=== PATIENT | male | born 1960 | race Caucasian/White ===

== ENCOUNTER → 2023-09-24 16:08 | Outpatient (REF) | payer BC, SELFPAY | LOC: RAD 16:08 | PROVIDERS: ATTENDING PHYSICIAN Physician Assistant | DX: S05.50XA Penetrating wound with foreign body of unspecified eyeball, initial encounter (principal) | CPT/HCPCS: 70030 ==

== ENCOUNTER → 2023-10-14 10:44 | Outpatient (REF) | payer BC, SELFPAY | LOC: HWRAD 10:44 | PROVIDERS: ATTENDING PHYSICIAN Nurse Practitioner Family; FAMILY PHYSICIAN Family Medicine | DX: R91.8 Other nonspecific abnormal finding of lung field (principal) | CPT/HCPCS: 71270; Q9967 ==

== ENCOUNTER → 2023-10-16 14:52 | Outpatient (REF) | payer BC, SELFPAY | LOC: RCS 14:52 | PROVIDERS: ATTENDING PHYSICIAN Internal Medicine Critical Care Medicine; FAMILY PHYSICIAN Family Medicine | DX: R06.02 Shortness of breath (principal) | CPT/HCPCS: 93306 ==

== ENCOUNTER → 2023-10-22 06:46 | Day surgery (SDC) | payer BC, SELFPAY ==
[2023-10-22 10:20] VITALS: BMI 21.8
[2023-10-22 10:25] VITALS: BP 160/90
[2023-10-22 10:48] VITALS: BMI 21.8
== END ==
LOC: GI 06:46
PROVIDERS: ATTENDING PHYSICIAN Internal Medicine Critical Care Medicine
DX: R91.8 Other nonspecific abnormal finding of lung field (principal); Z53.8 Procedure and treatment not carried out for other reasons
CPT/HCPCS: 31654; 71045

== ENCOUNTER 2023-10-22 15:37 | Inpatient (IN) | payer BC, SELFPAY ==
[2023-10-22] VITALS (25 sets, daily range): BP systolic 104–163; BP diastolic 51–123; BMI 21.6; BMI 22.1
--- NOTE | 2023-10-22 12:00 | ED.GENMED ---
History of Present Illness
General
Chief Complaint: Cardiac Symptoms
Source: patient
Exam Limitations: none
Time Seen by Provider: 10/22/23 11:47
History of Present Illness
History of Present Illness:
See MDM
Past History
Past History
ED Past Medical History: HTN and Other (Emphysema )
ED Past Surgical History: None
Social History
Tobacco: Smoker
Alcohol: None
Phy Exam
Physical Exam
Physical Exam:
See MDM
Scores
[id number] Score for Afib Stroke Risk
Age in Years (65=0, 65-74=1, >/=75=2): 65-74
Sex (Female=+1): Male
Congestive Heart Failure History (Yes=+1): No
Hypertension History (Yes=+1): Yes
Stroke/TIA/Thromboembolism History (Yes=+2): No
Vascular Disease History (Yes=+1): No
Diabetes Mellitus (Yes=+1): No
Score: 2
Anticoagulation Recommendations: Recommend anticoagulation (as validated in nonvalvular fib)
Course
Orders/Labs/Results
Orders:
Orders
10/22/23 11:44
EKG [Electrocardiogram (*1)] Urgent
Reason for Study: Atrial Fibrillation
EKG- Treatment ONCE
10/22/23 11:49
Complete Blood Count/With Diff Urgent
Prothrombin Time Urgent
TSH Reflex To Free T4 Urgent
Comment: ADD ON
Troponin I Urgent
10/22/23 11:56
Add On- LAB Urgent
Tests Added?: magnesium, TSH reflex Free T4
10/22/23 11:59
Diltiazem 125 mg/125 ml Nss [Cardizem] 125 mg in 125 ml IV NOW
Initial dose in mg/hr, then titrate:: 5
Titrate to keep:: Heart rate 80-100 bpm
Titrate by mg/hr:: 5 mg/hr
Frequency of titrations (minutes):: 15
Maximum dose in mg/hr:: 15
Diltiazem HCl [Cardizem] 20 mg IV NOW STA
10/22/23 12:00
0.9% Sodium Chloride 1000 ml [Nss] 1,000 ml IV BOLUS
10/22/23 12:24
Comprehensive Metabolic Panel Urgent
Magnesium Urgent
10/22/23 12:25
CT Chest Pe Study Urgent
Comment:
Reason For Exam: SOB, tachycardic, lung mass
10/22/23 12:26
Add On- LAB Urgent
Tests Added?: Pro-BNP
10/22/23 12:33
NT-proBNP Urgent
Comment: ADD ON
10/22/23 13:15
Heparin 5,200 units IV NOW STA
Heparin 63245 Units/250 ml 25,000 units in 250 ml IV PER PROTOCOL
Weight to be used for heparin protocol in kilograms (kg):: 64.4
Protocol:: DVT/PE
PTT Goal Range to be used:: PTT 73 to 111 seconds
Order type:: Initial
INITIAL Infusion Dose (UNITS/KG/hr) & then follow protocol:: 18 units/kg/hr
Infusion Dose in UNITS/hr & then follow protocol (UNITS/hr):: 1,200
INFUSION RATE in mL/hr & then follow protocol (mL/hr):: 12
For DVT/PE algorithm, re-bolus for low PTT?: Yes
PTT less than or equal to 64 seconds:: Re-bolus 80 units/kg (max 10,000units). Increase by 300 units/hr
(+ 3mL/hr)
PTT 64.1 to 72.9 seconds:: Re-bolus 40 units/kg (max 5,000 units). Increase by 100 units/hr
(+ 1mL/hr)
PTT 73 to 111 seconds:: Target Range. No change in rate.
PTT 111.1 to 130.9 seconds:: Decrease rate by 100 units/hr (- 1 mL/hr)
PTT 131 to 199.9 seconds:: HOLD for 1 hr. Then decrease by 200 units/hr (- 2mL/hr)
PTT greater than or equal to 200 seconds:: HOLD for 2 hrs & Notify Provider. Then decrease by 300 units/hr
(- 3mL/hr)
Lab follow-up:: Each change, PTT q6h until 2 consecutive are therapeutic. Then
PTT daily.
10/22/23 13:[address] Non Medication Order As Directed
Physician Order: PTT 6 hours after initial start of Heparin infusion
10/22/23 13:24
Electrocardiogram (*1) Urgent
Reason for Study: Tachycardia
EKG- Treatment ONCE
10/22/23 13:[address] See Protocol PO ONCE PRN PRN
10/22/23 13:30
Heparin 5,100 units IV Q6HPRN PRN
10/22/23 13:31
Heparin 2,600 units IV Q6HPRN PRN
10/22/23 13:43
Add On- LAB Urgent
Tests Added?: ptt
10/22/23 19:40
PTT Urgent
Abnormal Lab Results
10/22/23 10/22/23
11:49 12:24
WBC 22.3 H 10^3/uL
(4.8-10.8)
RBC 4.61 L 10^6/uL
(4.70-6.10)
Abs Immat Gran (auto) 0.1 H 10^3/uL
(0-0.05)
Absolute Neuts (auto) 19.3 H 10^3/uL
(1.4-6.5)
Absolute Lymphs (auto) 0.9 L 10^3/uL
(1.2-3.4)
Absolute Monos (auto) 1.9 H 10^3/uL
(0.1-0.6)
Immature Gran % 0.6 H %
(0-0.5)
Neutrophils % 86.3 H %
(42.2-75.2)
Lymphocytes % 4.2 L %
(20.5-51.1)
PT 14.7 H Sec
(11.4-14.6)
Glucose 135 H mg/dl
(70-99)
Magnesium 1.5 L mg/dl
(1.6-2.3)
Troponin I 0.065 H* ng/ml
Total Protein 5.9 L g/dl
(6.3-8.2)
Albumin 3.2 L g/dl
(3.5-5.0)
10/22/23 11:49
10/22/23 12:24
Vital Signs
Initial and Last Documented VS:
Initial Vital Signs
BP
138/65
10/22/23 11:43
Last Documented Vital Signs
Temp Pulse Resp BP Pulse Ox
99.1 F 124 21 104/58 96
10/22/23 11:50 10/22/23 13:00 10/22/23 13:00 10/22/23 13:00 10/22/23 13:00
MDM/Problems Addressed
Differential Diagnosis Includes:
HPI and MDM Narrative:
63-year-old male presenting with shortness of breath and dizziness. Patient was being evaluated for left shoulder pain by orthopedics. An x-ray showed concern for a lung mass. He went to same-day surgery to obtain bronchoscopy today. However,
pain onset A-fib. On arrival, patient is tachycardic. EKG is concerning for sinus tachycardia concern for underlying 2-1 A flutter
Physical exam
General: Frail, thin
HEENT: protecting airway. Dry mucous membranes
Neck: appears supple
CV: No evidence of cyanosis. Tachycardic and regular
Resp: No accessory muscle use. Prolonged expiratory phase
Abd: Non-distended
Extremities: No deformities
Neuro: alert
Psych: Normal affect
Skin: Intact
Problems Addressed including Acute and Chronic Conditions affecting care:
1. New onset A-fib
Acuity: acute
Prognosis: unstable
Details: EKG shows sinus tachycardia but there is concern for underlying 2-[address] on Cardizem.
2. Shortness of breath
Acuity: acute
Prognosis: stable
Details: Likely in the setting of his undiagnosed lung cancer seen on chest x-ray. Patient is pending bronchoscopy
Updates
Given the elevated troponin and persistent tachycardia, will obtain CT to rule out PE. Will start heparin with concern for new onset A-fib and possible PE
Differential Diagnosis (but not limited to): Pulmonary embolism, pneumonia, A-fib, a flutter
Testing considered: CT PE
Drug therapy (if applicable): OTC meds, please see d/c instruction regarding Rx drugs
Amount and/or Complexity of Data Reviewed
Clinical info obtained from: Patient
External data reviewed: Chest x-ray done as an outpatient today shows mass in left upper lobe
Labs I independently reviewed (but not limited to): Leukocytosis, elevated troponin
Radiology: N/A
Pulse Ox: not hypoxic
EKG independently reviewed: Sinus tachycardia, right axis, no STEMI
Firer Locomotive: tachycardia
Critical Care: The high probability of a clinically significant, sudden or life threatening deterioration of the cardiovascular system(s) required my full and direct attention, intervention and personal management. The aggregate critical care time
was 33 minutes. This time is in addition to time spent performing reported procedures but includes the following:
[x] Data Review and interpretation
[x] Patient assessment and monitoring of vital signs
[x] Documentation
[x] Medication orders and management
Risk of Complication:
Social Determinants of health: Good social support
Discussed with other providers: Hospitalist
Escalation of Care includes Admit/Obs: Given the persistent A-fib with RVR, will admit
Occasional wrong word or 'sound a like' substitutions may have occurred due to the inherent limitations of voice recognition software. Read the chart carefully and recognize, using context, where substitutions have occurred.
*Critical Care Note
Total Time (30-74mins, 75-104mins- exclusive of procedures): 33 min
ED Attending Note
-
Portions of this chart may have been created with voice recognition software.� Occasional wrong word or��sound alike� substitutions may have occurred due to the inherent limitations of voice recognition software.
Discharge Plan
Departure
Patient Disposition: Admit
Date of Disposition: 10/22/23
Time of Disposition: 13:52
Admit to: Telemetry
Presentation/result/management discussed w/ accepting MD/DO: Hospitalist
Discharge Problem:
Lung mass, New onset a-fib
Prescriptions:
No Action
atorvastatin 10 mg Tablet
10 mg PO DAILY
meloxicam 15 mg Tablet
15 mg PO DAILY
tramadol 50 mg Tablet
50 mg PO TIDPRN PRN (Reason: moderate pain)
acetaminophen [Tylenol Extra Strength] 500 mg Tablet
1,000 mg PO Q6HPRN PRN (Reason: mild pain)
cholecalciferol (vitamin D3) [Vitamin D3] 125 mcg (5,000 unit) Tablet
125 mcg PO DAILY
Trelegy Ellipta 200-62.5-25 mcg Blister With Device
1 inh INHALATION R DAILY
Referrals:
Ramona Jacome CRNP [Family Provider] -
Interventions
Interventions:
*Risk Screen - Suicide Last Done: 10/22/23 11:48
*General Assessment Last Done: 10/22/23 11:48
*Neglect/Abuse Screening Last Done: 10/22/23 11:48
ED- Pulmonary Assessment Last Done: 10/22/23 11:50
ED- Cardiac Assessment Last Done: 10/22/23 11:50
Discharge Date and Time
Print Language: QATARI
[2023-10-22 12:07] LABS: % Basophils 0.4 % (0-2); % Eosinophils 0.2 % (0-6); % Immature Granulocytes 0.6 % (0-0.5); % Lymphocytes 4.2 % (20.5-51.1); % Monocytes 8.3 % (1.7-9.3); % Neutrophils 86.3 % (42.2-75.2); Absolute Basophils 0.1 10^3/uL (0-0.2); Absolute Immature Granulocytes 0.1 10^3/uL (0-0.05); Absolute Lymphocytes 0.9 10^3/uL (1.2-3.4); Absolute Monocytes 1.9 10^3/uL (0.1-0.6); Absolute Neutrophils 19.3 10^3/uL (1.4-6.5); Hematocrit 39.3 % (39.0-52.0); Mean Corp Hgb Conc. 35.6 g/dL (33.0-37.0); Mean Corpuscular Hgb 30.4 pg (27.0-31.0); Mean Corpuscular Volume 85.2 fL (80.0-94.0); Mean Platelet Volume 9.5 fL (7.4-10.4); Nucleated Red Blood Cells % 0 % (-); Platelet Count 318 10^3/uL (130-400); Red Blood Cell Count 4.61 10^6/uL (4.70-6.10); Red Cell Dist. Width 14.5 % (11.5-14.5); White Blood Cell Count 22.3 10^3/uL (4.8-10.8)
[2023-10-22 12:10] LABS: INR 1.15; PT 14.7 Sec (11.4-14.6)
[2023-10-22] MEDS: NSS 1000 IV (12:19)
[2023-10-22] MEDS: CARDIZEM 20 MG IV (12:20)
[2023-10-22] MEDS: CARDIZEM 125 IV (12:23)
[2023-10-22 12:24] LABS: Troponin I 0.065 ng/ml
[2023-10-22 13:03] LABS: ALT (SGPT) 21 U/L (0-50); AST (SGOT) 25 U/L (17-59); Albumin 3.2 g/dl (3.5-5.0); Alkaline Phosphatase 115 U/L (38-126); Blood Urea Nitrogen 14 mg/dl (9-20); Calcium 9.6 mg/dl (8.4-10.2); Carbon Dioxide 28 mmol/L (22-30); Chloride 99 mmol/L (98-107); Estimated Creatinine Clearance 96 ml/min; Glucose 135 mg/dl (70-99); Potassium 4.9 mmol/L (3.5-5.1); Sodium 135 mmol/L (135-145); Total Bilirubin 0.8 mg/dl (0.2-1.3); Total Protein 5.9 g/dl (6.3-8.2); eGFR > 60.00
[2023-10-22] MEDS: HEPARIN 5200 UNITS IV (13:37)
[2023-10-22] MEDS: HEPARIN 25000 UNITS/250 ML IV (13:40)
[2023-10-22 14:06] LABS: NT-proBNP 624 pg/ml
[2023-10-22 14:15] LABS: APTT 35.4 Sec (23.4-35.0)
--- NOTE | 2023-10-22 15:19 | HPS.HSE ---
Addendum entered and electronically signed by Kb Arnett MD 10/22/23 18:09:
I personally performed a history and physical exam of the patient and discussed management with the resident. I reviewed the resident's note and agree with the documented findings and plan of care HPI/CC.
63-year-old male with past medical history of tobacco abuse, recent diagnosis of left upper lobe malignancy, hyperlipidemia was sent to ER from outpatient bronchoscopy when patient was noted to be hypoxic and recorded. Patient has been diagnosed
with new malignancy 1 week before after presenting in ER for having shoulder pain and dyspnea for 4 months. Patient was found to having left upper lobe mass on CT scan. Patient was discharged home and was seen by pulmonology in office. Patient
was brought back for an elective bronchoscopy where patient was noted to be hypoxic with SpO2 dropping to 80s. Related patient also was noted to be significantly tachycardic with heart rate in 170s. Patient was sent to ER. In ER patient was found
to be having A-fib RVR. Patient denies of any previous history of A-fib does have on and off palpitation.
Patient also history with there is also complaints of some left-sided chest pain, which located on upper left sternal/rib area and feels like being in muscles.
Patient denies of having any orthopnea/PND/leg swelling/syncope. No abdominal or complaints.
HEENT: No pallor, cyanosis, or jaundice. Throat clear.
NECK: Supple. No JVD.
RESPIRATORY: decreased breath sound left upper lobe
CVS: S1, S2. irregularly irregular rhythm, tachycardic
ABDOMEN: Soft, non-tender. No distension. BS+/normal.
EXTREMITIES: No peripheral cyanosis or edema.
LEAD TECHNICIAN: AOx3. No focal deficits.
1. Afib with RVR
-New diagnosis
-Patient converted to normal sinus rhythm with Cardizem drip in ER
-Cardiology evaluated and patient switched to oral Cardizem
-TTE on 10/15 reviewed - normal EF, PASP 25-30mmhg
-[id number] of 1 only and concern of fall risk with history of alcohol use by cardiology.
-Currently on heparin drip
2. Post-obstructive pneumonia
-CT chest compared from previous CT chest and increased infiltrate on left upper lobe
-Have associated leukocytosis without fever
-No cough/sputum production. Sputum culture ordered nonetheless
-Cover with empiric Unasyn
3. Left lung mass
Exertional dyspnea
-Bronchoscopy aborted today due to vital instability
-discussed with pulmonology of consult and will try to replan post patient stabilized from medical perspective
-CT chest images reviewed and a left lung mass causing compression of pulmonary artery on left, high risk of true PE in future, with associated new diagnosis of A-fib would favor oral anticoagulation. Will discuss with cardiology and pulmonology.
4. Tobacco use
-Nicotine patch, active smoker
-Cessation advised
5. Hypomagnesemia
-replace 2g mg, recheck in morning
6. Alcohol use disorder
-daily alcohol use
-monitor with MSAS/Ativan protocol
DVT PPX - heparin drip
Full code
6.
Original Note:
Family Physician
-
Family Physician: DEXTER Cm
Chief Complaint
-
Shortness of breath
History of Present Illness
Patient is a 63-year-old male presenting to the ED with shortness of breath progressing over the last week and new onset A-fib with RVR seen at remote inpatient coder office earlier today. He reports that over the last 4 months he started having orthopnea
at night, requiring additional pillows to prop himself up. Over the last week his shortness of breath has progressed, especially with activity. He notes some dizziness with ambulation and standing from seated position. If at rest he notes no
shortness of breath or dizziness. CT scan completed last month showed lung mass which was being worked up by pulmonology and he was set to get a bronchoscopy today. Upon evaluation of EKG prior to surgical procedure, A-fib was seen and patient was
sent to the ER. He notes no headaches, nausea, vomiting, diarrhea, chest pain, numbness or tingling, abdominal pain. He requires no home oxygen. Patient reports having 20 pounds of weight loss in the last year. He eats 1 small Japanese in the
morning and then nothing until dinner.
Medical History
Past Medical History
Past Medical History: Reports Other (Emphysema)
Additional Past Medical History:
Emphysema
Past Surgical History: Reports Other (Wrist surgery)
Additional Past Surgical History:
Wrist surgery
Social History
Tobacco: Smoker (45 years, 1 pack a day)
Alcohol: Daily (6 beers and 2 well drinks daily)
Drug: None
Personal: Partner
Living: Other (Lives with partner)
Employment: Employed
Family History
Family History: Cancer
Allergies / Home Medications
Allergies reflects when Allergies were last updated in [employer].
Home Medications with original date entered in [employer]
Allergy/Medication List:
No known drug allergies
Review of Systems
-
History Source: Patient
A 12 point ROS was completed and negative except as noted: Yes
Constitutional: Reports Weight Loss (20 pounds in 1 year)
EENT: Reports No Symptoms
Respiratory: Reports Cough and Trouble Breathing
Cardiac: Reports No Symptoms
Abdomen/GI: Reports No Symptoms
: Reports No Symptoms
Musculoskeletal: Reports No Symptoms
Skin: Reports No Symptoms
Neurological: Reports Dizzy
Psych: Reports No Symptoms
Physical Exam
Vital Signs
Vital Signs
Temp Pulse Resp BP Pulse Ox
99.1 F 91 17 114/63 96
10/22/23 11:50 10/22/23 13:45 10/22/23 13:45 10/22/23 13:45 10/22/23 13:45
Physical Exam
General: No Apparent Distress, Comfortable, Conversant and Cachectic
HEENT: NormoCephalic and Anicteric
Respiratory: Rhonchi (Bilateral across all lobes) and Decreased Breath Sounds (Left upper lobe)
Cardiac: S1/S2, Regular Rhythm and JVD
GI: Soft, Non Tender and Non Distended
Musculoskeletal: No Clubbing, No Cyanosis and No Edema
Skin: Warm and Dry
Neuro: AO x 3, No Motor Deficits, Cranial Nerves Intact and No Sensory Deficits
Psych: Calm
Laboratory Results
-
10/22/23 11:49
10/22/23 12:24
Laboratory Results
PT 14.7 Sec (11.4-14.6) H 10/22/23 11:49
INR 1.15 10/22/23 11:49
APTT Cancelled 10/22/23 13:17
Total Bilirubin 0.8 mg/dl (0.2-1.3) 10/22/23 12:24
AST 25 U/L (17-59) 10/22/23 12:24
ALT 21 U/L (0-50) 10/22/23 12:24
Alkaline Phosphatase 115 U/L (38-126) 10/22/23 12:24
Troponin I 0.065 ng/ml H* 10/22/23 11:49
Data Reviewed
-
Diagnostic Radiology: Report Reviewed by me and Discussed with Physician
CT Scan: Report Reviewed by me and Discussed with Physician
Lab Data: Labs Reviewed by me and Discussed with Physician
Old Records: Reviewed
Impression/Plan
-
IMPRESSION: 63-year-old male with history of emphysema, new onset A-fib with RVR and shortness of breath.
PLAN:
Acute onset shortness of
� Secondary to acute exacerbation of COPD versus lung mass versus PE versus NJ versus new onset A-fib
� EKG evidenced A-fib, now normal sinus rhythm
�Cardizem bolus and drip started. Rate of 5 mg an hour.
� CT PE ordered. No evidence of pleural embolism
- Heparin drip started.
-BNP 624. Heart failure ruled out
� Troponin elevated 0.065. No ST elevation or chest pain.
New onset A-fib
� In and out of A-fib with RVR
� Cardizem drip on, currently at 5 mg an hour
� Switch to oral diltiazem tomorrow pending cardiology recommendations
� Cardiology consulted. Input appreciated
� Joseph Vasc score of 1. Mild to moderate risk.
� Continue anticoagulation, currently on heparin
Lung mass
� Progressive dyspnea for last 4 months
� Monitor for hypoxia
� Consult pulmonology if indicated.
DVT prophylaxis�heparin
Full code
[2023-10-22 15:20] LABS: Magnesium 1.5 mg/dl (1.6-2.3)
[2023-10-22 15:47] LABS: Cortisol, Random 19.1 ug/dl
[2023-10-22 16:18] LABS: Free T3 4.41 pg/ml (2.77-5.27)
[2023-10-22 16:32] LABS: TSH Reflex To Free T4 1.16 uIU/ml (0.47-4.68)
--- NOTE | 2023-10-22 17:24 | CON.CAR ---
Addendum entered and electronically signed by Latoya Sorensen MD 10/22/23 17:51:
I saw and examined the patient.
The COOK BOX FILLER's note was reviewed and I agree with the note.
Comment: 63 yo male with COPD,ETOH abuse, tobacco use, found to GREG mass p/w new AF when presented for biopsy. He has no sense of arrhythmia, now in NSR. He reports his bp is 130-140's at MD office all the time, never started on meds yet. He had a
normal echo last week. He has rrr, no m/r/g, diffuse bronchial breathsounds. PAF: c2v is a 2 for HTN and age. For now continue hep gtt as will need lung bx, will transition dilt gtt to po dilt given COPD> I explained cannot drink while on DOAC,
he states he understands. He has what appears to be post obstructive pna, would recommend therapy. He should be watched for ETOH withdrawal. HTN will be treated to goal <130/80. GREG mass per pulmonary. Smoking cessation needed.
Original Note:
Consultation
Consultation Request
Date/Time Consultation Requested: 10/22/23 1641
Date/Time Consultation Performed: 10/22/23 1700
Requesting Provider: Dr. Booker
Performing Provider: Maria M RENTERIA for Dr. Sorensen
Reason for Consultation: AFIB with RVR
Medical History
-
Chief Complaint: arrhythmia
History of Present Illness:
63 y/o male with COPD, tobacco use, and daily ETOH who had left shoulder pain for the past two months, which led to an Xray, which showed lung mass who was getting a lung biopsy today. There, he was seen to be in AFIB with RVR and was sent to the
ER. He was placed on heparin and diltiazem drips. He denies any palpitations. He is in SR at the time of my assessment. He is noted to have leukocytosis and evidence for PNA on imaging.
Past Medical History
Past Medical History: COPD
Social History
Tobacco: Smoker (1 PPD, has been cutting back)
Alcohol: Daily (4-6 beers)
Family History
Family History: Reviewed & Not Pertinent
Allergies / Home Medications
Allergy/AdvReac Type Severity Reaction Status Date / Time
No Known Allergies Allergy Verified 10/22/23 11:45
�Medication �Instructions �Recorded �Confirmed �Type
acetaminophen 500 mg tablet 1,000 mg PO Q6HPRN PRN mild pain 10/22/23 10/22/23 History
(Tylenol Extra Strength)
atorvastatin 10 mg tablet 10 mg PO DAILY 10/22/23 10/22/23 History
cholecalciferol (vitamin D3) 125 125 mcg PO DAILY 10/22/23 10/22/23 History
mcg (5,000 unit) tablet (Vitamin
D3)
fluticasone fur. 200 mcg-umeclid 1 inh inhalation R DAILY 10/22/23 10/22/23 History
62.5 mcg-vilant 25 mcg
inhalat.powder (Trelegy Ellipta)
meloxicam 15 mg tablet 15 mg PO DAILY 10/22/23 10/22/23 History
tramadol 50 mg tablet 50 mg PO TIDPRN PRN moderate pain 10/22/23 10/22/23 History
Review of Systems
-
History Source: Patient
Respiratory: Trouble Breathing (chronic)
Musculoskeletal: Other (left shoulder pain)
Physical Exam
Vital Signs
Temp Pulse Resp BP Pulse Ox
98.9 F 80 18 163/62 99
10/22/23 17:16 10/22/23 17:16 10/22/23 17:16 10/22/23 17:16 10/22/23 17:16
Lab Results
10/22/23 11:49
10/22/23 12:24
Troponin I 0.065 ng/ml H* 10/22/23 11:49
Tkr-Q-Vuvcmboyggr Pept 624 pg/ml 10/22/23 12:33
Physical Exam
General: No Apparent Distress
HEENT: Normocephalic and Anicteric
Respiratory: Clear and Non Labored Respirations
Cardiac: Regular Rhythm
Musculoskeletal: No Edema
Skin: Warm and Dry
Neuro: AO x 3
Psych: Calm
Impression / Plan
-
AFIB with RVR, paroxysmal:
-new diagnosis
-now back in SR
-can transition to PO diltiazem
-[id number] score 1 for age, possibly 2 if HTN diagnosed- follow BP's. Continue heparin drip for now, which requires intensive monitoring
-TSH WNL.
-Discussed eliminating or at least limiting ETOH consumption.
-recent echo as below
Leukocytosis, poss PNA (imaging):
-management per primary team. Dr. Sorensen discussed with IM team.
Lung CA:
-IM to discuss plan with pulmonary
COPD:
-on inhaler therapy
Abnormal troponin:
-acute non-ischemic myocardial injury in setting of AFIB with RVR, likely PNA
-trend to peak
Smoking:
-he is working on cessation
Data Reviewed
-
EKG: Tracing Personally Visualized and interpreted (NSR)
CT Scan: Report Reviewed by me (large mass within the left hilum and medial left upper lobe compatible with a primary lung cancer with associated invasion of the mediastinum and anterior chest wall, which encases and significantly narrows the left
main point artery and occludes the left upper lobe..) and Other (bronchus and narrows left lower lobe bronchus. Compared to the prior CT, there is new irregular airspace consolidation within the central aspect of the inferior left upper lobe
suspicious for post obstructive pneumonia.)
Medical Tests (Nuc Med, Echo etc): Report Reviewed by me (10/16/23: Left ventricular ejection fraction is 60-65%, by visual assessment. Normal regional wall motion. Normal right ventricular size and function. Trace tricuspid regurgitation.
Estimated pulmonary artery pressure of 25-30 mmHg.)
Labs: Labs Reviewed by me
[2023-10-22] MEDS: UNASYN IV (18:01)
[2023-10-22] MEDS: CARDIZEM CD 120 MG PO (18:01)
[2023-10-22] MEDS: MAGNESIUM SULFATE 50 IV (18:26)
[2023-10-22] MEDS: NICODERM TRANSDERMAL 21 MG TRANSDERM (18:31)
[2023-10-22] MEDS: SYMBICORT 160/4.5 MCG INHALER 2 PUFF INH (19:46)
[2023-10-22 19:57] LABS: APTT 37.8 Sec (23.4-35.0)
[2023-10-22 20:02] LABS: Alcohol None Detected
[2023-10-22] MEDS: HEPARIN 5100 UNITS IV (20:06)
[2023-10-22] MEDS: THIAMINE INJECTION 200 MG IV (20:06)
[2023-10-23] VITALS (8 sets, daily range): BP systolic 121–157; BP diastolic 56–86
[2023-10-23] MEDS: UNASYN IV ×4 (00:36→17:24)
--- NOTE | 2023-10-23 00:50 | PTCARENOTE ---
Upon going into pt's room to hang scheduled unasyn, I noticed that the pt's IV pumps were off. Heparin gtt had been infusing the last time I had gone in the room. The pumps were unplugged. The pt stated that he unplugged them to use the bathroom. I
asked him if he had heard the pump beeping, signaling low battery. He stated that 'all the beeping sounds the same' and that he 'can't tell if it's in the room or outside the room.' I plugged in both IV pumps, turned them on, and made sure they were
infusing. Provider notified. Next PTT to be drawn soon.
[2023-10-23 01:51] LABS: INR 1.15; PT 14.7 Sec (11.4-14.6)
[2023-10-23 01:52] LABS: APTT 51.6 Sec (23.4-35.0)
[2023-10-23 02:03] LABS: Troponin I 0.069 ng/ml
[2023-10-23] MEDS: HEPARIN 5100 UNITS IV ×2 (02:08→14:33)
--- NOTE | 2023-10-23 04:00 | PTCARENOTE ---
Pt went into rapid AFib 120s-130s at 03:48. House provider notified. Converted back to NSR at 03:56. BP 142/64. Pt asymptomatic. Provider placed order to check Mg level with AM labs. Will continue to monitor.
[2023-10-23] MEDS: CARDIZEM CD 120 MG PO ×2 (05:26→10:02)
[2023-10-23] MEDS: ATIVAN 1 MG PO (05:34)
--- NOTE | 2023-10-23 05:46 | PTCARENOTE ---
Pt went back into rapid AFib at 05:00, Hr 120s-140s. Again, asymptomatic. BP 157/86. House provider notified and told me to give 08:00 PO cardizem early. When giving the PO cardizem, pt stated that he was having hallucinations. MSAS assessment done,
MSAS= 6. PO ativan given, see MAR. Will continue to monitor.
[2023-10-23] MEDS: SYMBICORT 160/4.5 MCG INHALER 2 PUFF INH ×2 (07:40→19:16)
[2023-10-23] MEDS: SPIRIVA RESPIMAT 2.5 MCG 2 PUFF INH (07:40)
[2023-10-23] MEDS: HEPARIN 25000 UNITS/250 ML IV ×2 (07:53→20:31)
[2023-10-23 07:54] LABS: Hematocrit 34.5 % (39.0-52.0); Hemoglobin 12.3 g/dL (13.0-18.0); Mean Corp Hgb Conc. 35.7 g/dL (33.0-37.0); Mean Corpuscular Hgb 30.6 pg (27.0-31.0); Mean Corpuscular Volume 85.8 fL (80.0-94.0); Mean Platelet Volume 9.3 fL (7.4-10.4); Platelet Count 278 10^3/uL (130-400); Red Blood Cell Count 4.02 10^6/uL (4.70-6.10); Red Cell Dist. Width 14.4 % (11.5-14.5); White Blood Cell Count 18.4 10^3/uL (4.8-10.8)
[2023-10-23] MEDS: FOLVITE 1 MG PO (07:59)
[2023-10-23] MEDS: LIPITOR 10 MG PO (07:59)
[2023-10-23] MEDS: MOBIC 15 MG PO (08:00)
[2023-10-23] MEDS: NICODERM TRANSDERMAL 21 MG TRANSDERM (08:01)
[2023-10-23 08:02] LABS: APTT 74.5 Sec (23.4-35.0)
[2023-10-23] MEDS: THIAMINE INJECTION 200 MG IV ×2 (08:04→20:23)
[2023-10-23] MEDS: VITAMIN D3 (cholecalciferol) 125 MCG PO (08:05)
[2023-10-23 08:52] LABS: Blood Urea Nitrogen 12 mg/dl (9-20); Calcium 8.8 mg/dl (8.4-10.2); Carbon Dioxide 28 mmol/L (22-30); Chloride 99 mmol/L (98-107); Estimated Creatinine Clearance 114 ml/min; Glucose 119 mg/dl (70-99); Magnesium 1.8 mg/dl (1.6-2.3); Potassium 3.8 mmol/L (3.5-5.1); Sodium 133 mmol/L (135-145); eGFR > 60.00
--- NOTE | 2023-10-23 09:36 | W.PN.CD ---
Today's Communication / Plan
-
increase diltiazem to 240mg daily
continue heparin drip; eventual transition to eliquis pending plans for bronchoscopy/biopsy
trend tele
Impression / Plan
-
AFIB with RVR, paroxysmal:
-new diagnosis
-echo 10/16/23: Left ventricular ejection fraction is 60-65%, by visual assessment. Normal regional wall motion. Normal right ventricular size and function. Trace tricuspid regurgitation. Estimated pulmonary artery pressure of 25-30
mmHg
-in/out of A fib this AM
-increase diltiazem to 240mg daily
-[id number] score 1 for age, possibly 2 if HTN diagnosed- follow BP's. Continue heparin drip for now, which requires intensive monitoring of labs
-eventual transition to eliquis 5mg bid, but may undergo bronchoscopy with biopsy this admission
Elevated blood pressure
-trend with diltiazem titration
Leukocytosis, poss PNA:
-Abx per primary
Lung CA:
-may undergo bronchoscopy with biopsy this admission
COPD:
-on inhaler therapy
Abnormal troponin:
-acute non-ischemic myocardial injury in setting of AFIB with RVR, likely PNA
-trend to peak: 0.070
Smoking:
-he is working on cessation
Physical Exam
Vital Signs/Labs
Vital Signs
Temp Pulse Resp BP Pulse Ox
98.3 F 115 18 154/65 98
10/23/23 07:10 10/23/23 07:46 10/23/23 07:46 10/23/23 07:10 10/23/23 07:46
10/22/23 10/23/23 10/24/23
06:59 06:59 06:59
Actual Weight 65.794 kg
10/23/23 07:40
10/23/23 07:40
PT Cancelled 10/23/23 06:00
INR Cancelled 10/23/23 06:00
APTT 74.5 Sec (23.4-35.0) H 10/23/23 07:40
Magnesium 1.8 mg/dl (1.6-2.3) 10/23/23 07:40
10/22/23
12:33
Ryb-M-Wlexspppcex Pept 624
LAB Results
10/22/23 10/22/23 10/23/23
11:49 19:17 01:24
Troponin I 0.065 H* 0.070 H* 0.069 H*
Physical Exam
Constitutional: Comfortable
EENT: Moist mucous membranes
Cardiovascular: Pedal edema is absent, JVD pressure is normal, Systolic murmur absent and Rhythm/rate is irregular
Respiratory: Respiratory effort normal and Lungs clear to auscul.
GI: Soft and Distention absent
Neuro/Psych: AO x 3
Data Reviewed
-
Date of Service: October 23, 2023
EKG: Other (Tele: SR with paroxysmal A fib)
Labs: Labs Reviewed by me
[2023-10-23] MEDS: LOPRESSOR 5 MG IV (10:03)
--- NOTE | 2023-10-23 13:14 | W.PN.UPDATE ---
Update Note
Progress Note Update
I saw and evaluated the patient. I reviewed the resident�s note and agree with findings and plan as documented in the resident�s note.
No episode of palpitations/chest discomfort/dizziness overnight
No other acute issues reported.
1. Afib with RVR - resolved
-New diagnosis
-Patient converted to normal sinus rhythm with Cardizem drip in ER
-TTE on 10/15 reviewed - normal EF, PASP 25-30mmhg
-[id number]-NQUt of 1 only and concern of fall risk with history of alcohol use by cardiology.
-Patient Cardizem dose has been increased by cardiology today. Continue monitoring on telemetry.
-AC plan to be decided, will discuss with cardiology.
2. Post-obstructive pneumonia
-CT chest compared from previous CT chest and increased infiltrate on left upper lobe
-Have associated leukocytosis without fever
-No cough/sputum production. Sputum culture ordered nonetheless
-Cover with empiric Unasyn
3. Left lung mass
Exertional dyspnea
-Bronchoscopy aborted on day of ER visit due to vital instability
-CT chest images reviewed and a left lung mass causing compression of pulmonary artery on left, high risk of true PE in future, with associated new diagnosis of A-fib would favor oral anticoagulation. Will discuss with cardiology and pulmonology.
-Discussed with pulmonology and possibly planning to do bronchoscopy tomorrow in the morning.
4. Tobacco use
-Nicotine patch, active smoker
-Cessation advised
5. Hypomagnesemia
-replace 2g mg, recheck in morning
6. Alcohol use disorder
-daily alcohol use
-monitor with MSAS/Ativan protocol
DVT PPX - heparin drip
Full code
Care plan discussed with cardiology and pulmonology.
Total time spent 53 minutes
--- NOTE | 2023-10-23 13:24 | CON.PUL ---
Consultation
Consultation Request
Date/Time Consultation Requested: 10/22
Date/Time Consultation Performed: 10/22
Reason for Consultation: Bronchoscopy rescheduled
Medical History
-
History of Present Illness:
History obtained from the patient, reviewing both inpatient and outpatient records. Patient is a 63-year-old male, who was seen in the pulmonary office 10/15 for abnormal imaging. Patient states he had an incidental abnormality found on MRI of the
cervical spine after complaint of left shoulder pain. Patient also admitted to 20 pound weight loss, progressive shortness of breath. He has significant smoking history, 2 packs a day, has cut down to 1 pack, likely 80+ pack year. He was found to
be tachycardic as outpatient, but without symptoms. Echocardiogram within normal limits. Imaging confirmed left upper lobe mass with hilar and mediastinal invasion. Patient was scheduled for bronchoscopy and assessment of the mediastinum 87 was
found to be hypoxic, 80% on room air, heart rate in the 150s to 170s with irregular rhythm. Patient was subsequently transferred to ED, admitted for new onset atrial flutter/atrial fibrillation. He was empirically started on heparin therapy. He
is now stabilized, seen by cardiology on rate control therapy. We are asked to consider bronchoscopy 10/24/2023
Presently, patient denies shortness of breath, chest pain, cough. He appears more alert at this time compared to 24 hours ago. Brother at bedside
.
PMH: COPD, suspected lung cancer with left upper lobe mass, elevated troponin, tachycardia, hypertension, newly diagnosed atrial fibrillation
Past Medical History
Past Medical History: None (See above)
Past Surgical History: None (See above)
Social History
Tobacco: Smoker ([id number], ongoing)
Alcohol: Daily (4-5 beers a day)
Drug: None
Personal: Partner (Girlfriend)
Living: Alone
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
Family History
Family History: Other (Mother with colon cancer. 6 siblings. Negative history of lung cancer, lung disease)
Allergies / Home Medications
Allergies
Allergy/AdvReac Type Severity Reaction Status Date / Time
No Known Allergies Allergy Verified 10/22/23 11:45
Home Medications
�Medication �Instructions �Recorded �Confirmed �Last Taken �Type
acetaminophen 500 mg tablet 1,000 mg PO Q6HPRN PRN mild pain 10/22/23 10/22/23 Unknown History
(Tylenol Extra Strength)
atorvastatin 10 mg tablet 10 mg PO DAILY 10/22/23 10/22/23 10/21/23 11:00 History
cholecalciferol (vitamin D3) 125 125 mcg PO DAILY 10/22/23 10/22/23 10/21/23 History
mcg (5,000 unit) tablet (Vitamin
D3)
fluticasone fur. 200 mcg-umeclid 1 inh inhalation R DAILY 10/22/23 10/22/23 10/21/23 History
62.5 mcg-vilant 25 mcg
inhalat.powder (Trelegy Ellipta)
meloxicam 15 mg tablet 15 mg PO DAILY 10/22/23 10/22/23 10/21/23 11:00 History
tramadol 50 mg tablet 50 mg PO TIDPRN PRN moderate pain 10/22/23 10/22/23 10/21/23 11:00 History
Review of Systems
-
All other systems: Negative unless noted
Vitals / Labs / Diagnostic Testing
Vital Signs
Temp Pulse Resp BP Pulse Ox
97.8 F 88 16 130/60 96
10/23/23 11:05 10/23/23 11:05 10/23/23 11:05 10/23/23 11:05 10/23/23 11:05
Lab Data
10/23/23 07:40
10/23/23 07:40
Laboratory Results
10/22/23 10/22/23 10/22/23
11:49 13:17 19:17
PT
INR
APTT 35.4 H Cancelled 37.8 H
10/23/23 10/23/23 10/23/23
24 06:00 07:40
PT 14.7 H Cancelled
INR 1.15 Cancelled
APTT 51.6 H 74.5 H
Diagnostic Testing:
Physical Exam
-
HEENT: Normocephalic, Anicteric and Other (Poor dentition)
Cardiovascular: S1/S2, Regular Rhythm (Tachycardic), Murmur (n), Rub (n) and Peripheral Edema (n)
Respiratory: Wheeze (n), Rales (n), Rhonchi (few), Non-Labored Respirations and Other (Decreased breath sounds left side)
GI: Soft, Non Distended and Non Tender
Neurology: Awake, Alert and No Motor Deficits (Moves all extremities)
Skin: Good Color
General: Comfortable
Assessment
-
63-year-old male with left upper lobe mass worrisome for lung cancer, admitted for atrial fibrillation, new onset, hypoxia, tachycardia. Mildly elevated troponin noted. Started on heparin drip, rate control medications. We are asked to consider
bronchoscopy prior to long-term anticoagulation
Atrial fibrillation with rapid ventricular response
New onset
Now on Cardizem drip
Left upper lobe mass
Being evaluated for possible bronchoscopy, tissue biopsy
Likely encasing pulmonary artery and upper airway bronchus
Suspected COPD
Hypoxia, 80% on room air
Suspected postobstructive pneumonia
Daily alcohol use
4-5 beers a day
80+ pack history of smoking, ongoing
Plan/recommendations
At this time, patient appears to be more comfortable, more alert and interactive than 24+ hours ago
He is without complaints
Heart rate in the 80s
Cardiology correspondence reviewed. Remains on heparin therapy
Moving forward
Will plan for bronchoscopy, tissue biopsy left upper lobe mass, mediastinum 8 at 7:30 in the morning
Plan to hold heparin 6 hours prior
Reviewed risks at length with patient and brother at bedside (3 to 5% chance pneumothorax, 1% chance for bleeding, anesthesia risk)
Patient agreeable to proceed
Discussed importance of tobacco cessation, abstinence from alcohol
Reviewed with primary service, patient and brother at bedside
All questions answered
[2023-10-23 14:23] LABS: APTT 61.1 Sec (23.4-35.0)
--- NOTE | 2023-10-23 16:37 | CM ---
Alert awake oriented patient who lives with his SO Ciera who lives in a 2 story home with 2 step to enter and 10 steps to bed and bathroom. He is independent in driving and in all activities of daily living.He was offered VN he declined need.
requested domínguez check on Eliquis. Domínguez was $342.46. Pt given free coupon for Eliquis and $10.00 coupon /mon for Eliquis given. aware. Pt declined substance abuse counseling.
No VN hx / No SNF history
Pharmacy [facility]
PCP DR Ramona Jacome
PLAN Home Declined VN
--- NOTE | 2023-10-23 18:25 | W.PN.HOSP.TC ---
Today's Communication/Plan
-
Diltiazem 240mg
N.p.o. from breakfast in the a.m. tomorrow for bronchoscopy.
Continue telemetry.
Assessment / Plan
Assessment / Plan
Assessment -
63-year-old male with PMHx significant for COPD/emphysema and left upper lobe mass suspicious for lung carcinoma presents to the hospital for acute onset shortness of breath, hypoxia and palpitations. Diagnosed with new onset A-fib with RVR.
Plan -
A-fib with RVR-
New diagnosis, was on diltiazem drip initially in the ER. Eventually converted to sinus rhythm.
LVEF-60 to 65% with trace TR and PASP of 25 to 30 mmHg and most recent echocardiogram (10/16/2023).
Nwjorcuou-NY-uolzshpn at 90, in and out of A-fib overnight. Given a single dose of Lopressor IV in the a.m. after physical examination.
[id number]-WYIh score of 1 (may be 2 if new onset hypertension diagnosis), but having a lung mass obstructing his left pulmonary artery can increase the risk of PE/thrombosis.
Cardiology consulted yesterday, on board, appreciate inputs, increase the diltiazem dose to 240 today.
Plan is to get him a bronchoscopy and then switch him to long-term oral anticoagulation.
Pulmonary embolism ruled out in the setting of acute onset shortness of breath, patient initiated on heparin drip okay due to increased risk of PE/thrombosis.
Postobstructive pneumonia-
Denies having any symptoms of chest pain and cough.
As evidenced by the CT on 10/[address] on 10/13.
SIRS-2/4-leukocytosis, tachycardia upon admission.
Patient is started on Unasyn. Continue to trend white blood cell counts.
Sputum culture pending.
Left upper lobe mass-
Complains of exertional dyspnea and pain radiating into his shoulder from anterior chest wall.
Scheduled bronchoscopy on the day of ER but could not pursue in the setting of new onset A-fib.
Pulmonology consulted, plan is to do a bronchoscopy-diagnostic in the a.m. tomorrow.
Hypomagnesemia-
Replace magnesium as needed.
Recheck magnesium in the a.m. tomorrow.
Tobacco use-
Currently on nicotine patch active smoker smokes 2 packs a day.
Alcohol use disorder
On MSAS protocol, MSAS score at 3 in the AM today.
DVT prophylaxis
On heparin drip.
Full code
Anticipated Discharge: > 48 hours
Subjective/Interval History
-
Date of Service: October 23, 2023
Patient reports to be feeling better. Denies chest pain, shortness of breath, nausea, vomiting, abdominal pain, constipation, lightheadedness, dizziness, cough.
However overnight he was told to have abnormal heart rate and atrial fibrillation for
Objective Data
-
Labs:
Laboratory Results
10/23/23 10/23/23 10/23/23
07:40 13:53 20:30
WBC 18.4 H
Hgb 12.3 L
Hct 34.5 L
Plt Count 278
APTT 74.5 H 61.1 H Pending
Sodium 133 L
Potassium 3.8
Chloride 99
Carbon Dioxide 28
BUN 12
Creatinine 0.6 L
Glucose 119 H
Calcium 8.8
Vital Signs:
Vital Signs
Temp Pulse Resp BP Pulse Ox
97.7 F 79 16 147/65 96
10/23/23 15:05 10/23/23 15:05 10/23/23 15:05 10/23/23 15:05 10/23/23 15:05
I&O
10/22/23 10/23/23 10/24/23
06:59 06:59 06:59
Output Total 650 / 650
Balance -650 / -650
Review of Systems
-
History Source: Patient
All other systems: Reviewed and negative
Physical Exam
-
General: No Apparent Distress and Comfortable (Breathing on room air)
HEENT: Normocephalic, Atraumatic and Moist Mucous Membranes
Respiratory: Rhonchi, Crackles and Decreased Breath Sounds (In left upper lobe.)
Cardiac: S1/S2 and Irregular Rhythm; Negative Murmur, Rub or Gallop
GI: Soft, Nontender, Nondistended and Normal Bowel Sounds
Musculoskeletal: No Clubbing, No Cyanosis and No Edema
Neuro: AO x 3
Psych: Calm
Data Reviewed
-
Diagnostic Radiology: Report Reviewed by me
CT Scan: Report Reviewed by me
Medical Tests (Nuc Med, Echo etc): Report Reviewed by me
Labs: Labs Reviewed by me and Discussed with Physician
Old Records: Reviewed
[2023-10-23 21:37] LABS: APTT 125.7 Sec (23.4-35.0)
[2023-10-24] VITALS (16 sets, daily range): BP systolic 74–153; BP diastolic 57–115
[2023-10-24] MEDS: UNASYN IV ×4 (00:12→17:00)
[2023-10-24 04:57] LABS: Hematocrit 32.5 % (39.0-52.0); Hemoglobin 11.5 g/dL (13.0-18.0); Mean Corp Hgb Conc. 35.4 g/dL (33.0-37.0); Mean Corpuscular Hgb 31.2 pg (27.0-31.0); Mean Corpuscular Volume 88.1 fL (80.0-94.0); Mean Platelet Volume 9.2 fL (7.4-10.4); Platelet Count 269 10^3/uL (130-400); Red Blood Cell Count 3.69 10^6/uL (4.70-6.10); Red Cell Dist. Width 14.2 % (11.5-14.5); White Blood Cell Count 17.4 10^3/uL (4.8-10.8)
[2023-10-24 05:24] LABS: Blood Urea Nitrogen 11 mg/dl (9-20); Calcium 8.6 mg/dl (8.4-10.2); Carbon Dioxide 29 mmol/L (22-30); Chloride 103 mmol/L (98-107); Estimated Creatinine Clearance 98 ml/min; Glucose 108 mg/dl (70-99); Potassium 3.7 mmol/L (3.5-5.1); Sodium 137 mmol/L (135-145); eGFR > 60.00
--- NOTE | 2023-10-24 07:51 | W.PN.HOSP.TC ---
Addendum entered and electronically signed by Kb Arnett MD 10/24/23 15:22:
I saw and evaluated the patient. I reviewed the resident�s note and agree with findings and plan as documented in the resident�s note.
Patient seen post bronchoscopy and resting comfortably in bed. Noted to be in A-fib in the night again and still ongoing post bronchoscopy. Denies of having any palpitations/chest discomfort.
1. Afib with RVR - resolved
-New diagnosis
-Patient converted to normal sinus rhythm with Cardizem drip in ER
-TTE on 10/15 reviewed - normal EF, PASP 25-30mmhg
-[id number]-WAEj of 1 only and concern of fall risk with history of alcohol use by cardiology.
-Patient Cardizem dose has been increased by cardiology.
-Patient has been started on oral Eliquis therapy.
-Patient have repeat episode of A-fib with RVR and plan to be monitored on current dose of Cardizem.
2. Post-obstructive pneumonia
-CT chest compared from previous CT chest and increased infiltrate on left upper lobe
-No cough/sputum production. Sputum culture ordered nonetheless
-Cover with empiric Unasyn, wbc trending down/patient is afebrile.
3. Left lung mass
Exertional dyspnea
-Bronchoscopy aborted on day of ER visit due to vital instability
-CT chest images reviewed and a left lung mass causing compression of pulmonary artery on left, high risk of true PE in future, with associated new diagnosis of A-fib would favor oral anticoagulation. Will discuss with cardiology and pulmonology.
-Patient underwent uneventful bronchoscopy on 10/23 morning. Follow-up pathology report post discharge
4. Tobacco use
-Nicotine patch, active smoker
-Cessation advised
5. Hypomagnesemia
-replaced
6. Alcohol use disorder
-daily alcohol use
-Low MSAS for last 48hrs, monitor off MSAS/Ativan at this point
DVT PPX - Eliquis
Full code
Original Note:
Today's Communication/Plan
-
.
Assessment / Plan
Assessment / Plan
Unable to complete physical exam because patient was not in room during morning rounds
Assessment -
63-year-old male with PMHx significant for COPD/emphysema and left upper lobe mass suspicious for lung carcinoma presents to the hospital for acute onset shortness of breath, hypoxia and palpitations. Diagnosed with new onset A-fib with RVR.
Plan -
A-fib with RVR-
New diagnosis, was on diltiazem drip initially in the ER. Eventually converted to sinus rhythm.
LVEF-60 to 65% with trace TR and PASP of 25 to 30 mmHg and most recent echocardiogram (10/16/2023).
Crmrvtmpp-EA-rmpovhg at 90, in and out of A-fib overnight.
Continue diltiazem to 240 mg daily, continue to monitor
[id number]-SCJu score of 1 (may be 2 if new onset hypertension diagnosis), but having a lung mass obstructing his left pulmonary artery can increase the risk of PE/thrombosis.
Cardiology consulted yesterday, on board, appreciate inputs, increase the diltiazem dose to 240 today.
Plan is to get him a bronchoscopy and then switch him to long-term oral anticoagulation.
Pulmonary embolism ruled out in the setting of acute onset shortness of breath, patient initiated on heparin drip due to increased risk of PE/thrombosis.
Postobstructive pneumonia-
Denies having any symptoms of chest pain and cough.
As evidenced by the CT on 10/[address] on 10/13.
SIRS-2/4-leukocytosis, tachycardia upon admission.
Patient is started on Unasyn. Continue to trend white blood cell counts.
Sputum culture pending.
Left upper lobe mass-
Complains of exertional dyspnea and pain radiating into his shoulder from anterior chest wall.
Scheduled bronchoscopy on the day of ER but could not pursue in the setting of new onset A-fib.
Pulmonology consulted, bronchoscopy completed today in the a.m. Waiting for results
Hypomagnesemia-
Replace magnesium as needed.
Recheck magnesium in the a.m. tomorrow.
Tobacco use-
Currently on nicotine patch active smoker smokes 2 packs a day.
Alcohol use disorder
On MSAS protocol, MSAS score at 3 in the AM today.
DVT prophylaxis
On heparin drip.
Full code
Anticipated Discharge: 24 - 48 hours
Subjective/Interval History
-
Date of Service: October 24, 2023
During morning rounds, patient was not in room and was taken down for bronchoscopy this a.m.
Objective Data
-
Labs:
Laboratory Results
10/23/23 10/24/23
20:59 04:40
WBC 17.4 H
Hgb 11.5 L
Hct 32.5 L
Plt Count 269
APTT 125.7 H 34.0
Sodium 137
Potassium 3.7
Chloride 103
Carbon Dioxide 29
BUN 11
Creatinine 0.7
Glucose 108 H
Calcium 8.6
Vital Signs:
Vital Signs
Temp Pulse Resp BP Pulse Ox
98.0 F 81 18 141/66 98
10/24/23 03:24 10/24/23 03:24 10/24/23 03:24 10/24/23 03:24 10/24/23 03:24
I&O
10/23/23 10/24/23 10/25/23
06:59 06:59 06:59
Intake Total 633 / 633
Output Total 650 / 650 2600 / 2600
Balance -650 / -650 -1966 / -1966
Review of Systems
-
Unable to obtain full review of systems at this time due to: Other (Patient gone for bronchoscopy)
Data Reviewed
-
Labs: Labs Reviewed by me and Discussed with Physician
Old Records: Reviewed
--- NOTE | 2023-10-24 08:40 | W.PN.UPDATE ---
Update Note
Progress Note Update
Bronchoscopy completed
See report
WASHINTGON positive
OK to resume Heparin upon arrival to floor. OK to start OAC at discretion of primary srevice
OK to resume diet in 1 hour
--- NOTE | 2023-10-24 09:12 | SUR.PHASEI ---
Patient coughing and expectorating phlegm on arrival to PACU. Restles, disorientated to situation, time and place. A Fib on monitor, rate 128 on arrival to PACU. will monitor . Aidan Lai RN BSN.
--- NOTE | 2023-10-24 09:47 | PTCARENOTE ---
pt back from Bronchoscopy, pt is AAO*[address] pt asking 'why am I here, who brought me in?' made aware. no new orders at this time. VSS, pt denies any pain. heparin gtt discontinued. MSAS cancelled by . pt calm as of now. report
received from GLENN Campos. pt currently on 2Lo2 96%. plan of care ongoing.
[2023-10-24] MEDS: SPIRIVA RESPIMAT 2.5 MCG 2 PUFF INH (09:51)
[2023-10-24] MEDS: SYMBICORT 160/4.5 MCG INHALER 2 PUFF INH ×2 (09:51→19:57)
[2023-10-24] MEDS: ELIQUIS 5 MG PO ×2 (09:57→20:02)
[2023-10-24] MEDS: NICODERM TRANSDERMAL 21 MG TRANSDERM (09:57)
[2023-10-24] MEDS: LIPITOR 10 MG PO (09:58)
[2023-10-24] MEDS: VITAMIN D3 (cholecalciferol) 125 MCG PO (09:58)
[2023-10-24] MEDS: FOLVITE 1 MG PO (09:58)
[2023-10-24] MEDS: THIAMINE INJECTION 200 MG IV ×2 (09:58→20:03)
[2023-10-24] MEDS: CARDIZEM CD 240 MG PO (09:58)
[2023-10-24] MEDS: MOBIC 15 MG PO (09:59)
--- NOTE | 2023-10-24 11:41 | W.PN.CD ---
Today's Communication / Plan
-
Cont dilt
Stop heparin, start Eliquis tonight
trend tele
Impression / Plan
-
AFIB with RVR, paroxysmal:
-new diagnosis
-echo 10/16/23: Left ventricular ejection fraction is 60-65%, by visual assessment. Normal regional wall motion. Normal right ventricular size and function. Trace tricuspid regurgitation. Estimated pulmonary artery pressure of 25-30
mmHg
-in/out of A fib this AM
-cont diltiazem to 240mg daily, AF after bx and overnight, monitor
-[id number] score 1 for age, possibly 2 if HTN diagnosed- follow BP's.
- s/p bx, heparin gtt stop, start Eliquis this evening
Elevated blood pressure
-trend with diltiazem titration
Leukocytosis, poss PNA:
-Abx per primary
Lung CA:
-may undergo bronchoscopy with biopsy this admission
COPD:
-on inhaler therapy
Abnormal troponin:
-acute non-ischemic myocardial injury in setting of AFIB with RVR, likely PNA
-trend to peak: 0.070
Smoking:
-he is working on cessation
Physical Exam
Vital Signs/Labs
Vital Signs
Temp Pulse Resp BP Pulse Ox
97.6 F 101 18 116/62 96
10/24/23 09:54 10/24/23 09:58 10/24/23 09:54 10/24/23 09:58 10/24/23 10:00
10/23/23 10/24/23 10/25/23
06:59 06:59 06:59
Actual Weight 145 lb 0.8 oz
10/24/23 04:40
10/24/23 04:40
PT Cancelled 10/23/23 06:00
INR Cancelled 10/23/23 06:00
APTT 34.0 Sec (23.4-35.0) 10/24/23 04:40
Magnesium 1.8 mg/dl (1.6-2.3) 10/23/23 07:40
10/22/23
12:33
Jsc-A-Jwkfjrexrsf Pept 624
LAB Results
10/22/23 10/22/23 10/23/23
11:49 19:17 01:24
Troponin I 0.065 H* 0.070 H* 0.069 H*
Physical Exam
Constitutional: No acute distress and Comfortable
EENT: Anicteric
Cardiovascular: Pedal edema is absent and Rhythm/rate is irregular
Respiratory: Other (decreased b/s b/l )
GI: Soft
Neuro/Psych: AO x 3
Data Reviewed
-
Date of Service: October 24, 2023
EKG: Tracing Personally Visualized and interpreted (af)
Echo: Report Reviewed by me
Labs: Labs Reviewed by me
--- NOTE | 2023-10-24 15:11 | W.PN.HOSP.TC ---
Addendum entered and electronically signed by Kb Arnett MD 10/25/23 12:24:

PLEASE DISREGARD THIS NOTE, DOCUMENTATION ERROR.

Original Note:
Today's Communication/Plan
-
monitor overnight
Assessment / Plan
Assessment / Plan
Unable to complete physical exam because patient was not in room during morning rounds
Assessment -
63-year-old male with PMHx significant for COPD/emphysema and left upper lobe mass suspicious for lung carcinoma presents to the hospital for acute onset shortness of breath, hypoxia and palpitations. Diagnosed with new onset A-fib with RVR.
Plan -
A-fib with RVR-
New diagnosis, was on diltiazem drip initially in the ER. Eventually converted to sinus rhythm.
LVEF-60 to 65% with trace TR and PASP of 25 to 30 mmHg and most recent echocardiogram (10/16/2023).
Kapbaywbr-WG-gedtfsx at 90, in and out of A-fib overnight.
Continue diltiazem to 240 mg daily, continue to monitor
[id number] score of 1 (may be 2 if new onset hypertension diagnosis), but having a lung mass obstructing his left pulmonary artery can increase the risk of PE/thrombosis.
Cardiology consulted yesterday, on board, appreciate inputs, increase the diltiazem dose to 240 today.
Plan is to get him a bronchoscopy and then switch him to long-term oral anticoagulation.
Pulmonary embolism ruled out in the setting of acute onset shortness of breath, patient initiated on heparin drip due to increased risk of PE/thrombosis.
Postobstructive pneumonia-
Denies having any symptoms of chest pain and cough.
As evidenced by the CT on 10/[address] on 10/13.
SIRS-2/4-leukocytosis, tachycardia upon admission.
Patient is started on Unasyn. Continue to trend white blood cell counts.
Sputum culture pending.
Left upper lobe mass-
Complains of exertional dyspnea and pain radiating into his shoulder from anterior chest wall.
Scheduled bronchoscopy on the day of ER but could not pursue in the setting of new onset A-fib.
Pulmonology consulted, bronchoscopy completed today in the a.m. Waiting for results
Hypomagnesemia-
Replace magnesium as needed.
Recheck magnesium in the a.m. tomorrow.
Tobacco use-
Currently on nicotine patch active smoker smokes 2 packs a day.
Alcohol use disorder
On MSAS protocol, MSAS score at 3 in the AM today.
DVT prophylaxis
On heparin drip.
Full code
Anticipated Discharge: Within 24 hours
Subjective/Interval History
-
Date of Service: October 24, 2023
Objective Data
-
Labs:
Laboratory Results
10/24/23
04:40
WBC 17.4 H
Hgb 11.5 L
Hct 32.5 L
Plt Count 269
APTT 34.0
Sodium 137
Potassium 3.7
Chloride 103
Carbon Dioxide 29
BUN 11
Creatinine 0.7
Glucose 108 H
Calcium 8.6
Vital Signs:
Vital Signs
Temp Pulse Resp BP Pulse Ox
97.6 F 81 14 115/61 97
10/24/23 15:07 10/24/23 15:07 10/24/23 15:07 10/24/23 15:07 10/24/23 15:07
I&O
10/23/23 10/24/23 10/25/23
06:59 06:59 06:59
Intake Total 633 / 633 110 / 110
Output Total 650 / 650 2600 / 2600
Balance -650 / -650 -1967 / -1967 110 / 110
--- NOTE | 2023-10-24 16:09 | CM ---
PT screening done Pt no skilled needs.
Pt had declined [place].
Pt given free coupon for Eliquis and $10.00 coupon /mon for Eliquis given. aware. Pt declined substance abuse counseling.
Ciera SO will drive him home at [place].
PLAN Home no needs
--- NOTE | 2023-10-24 16:26 | PTCARENOTE ---
At 10:30 pt with Rapid Afib on monitor w/ HR 160's. pt diaphoretic and c/o dizziness. Cards notified. EKG with Afib. no new orders at this time. BP 110's/60's. plan of care ongoing.
pt HR in 70's-80's. Sinus rhythm on the monitor as of 1600.
--- NOTE | 2023-10-24 22:50 | PTCARENOTE ---
Addendum entered by Rehana Wasserman RN 10/25/23 05:23:
Pt tele monitor alarmed AFib hr 110-120's and is asymptomatic. RN notified CASTER HELPER- no new orders at this time. RN instructed pt to report any changes such as SOB, chest pain, palpations, and/or lightheadedness. Pt is resting comfortably w/ call woods
within reach.
Original Note:
Pt tele monitor alarmed hr 140-170's. Pt was diaphoretic but denied palpations, chest pain, and SOB. VS 153/78, 155hr, 18resp, 99% on room air. RN obtained EKG- showed AFib with RVR. CASTER HELPER notified- ordered 5mg IV metoprolol. @23:58- Pt converted
back into NSR w/ hr ranging from 70-80's. Pt is resting comfortably w/ call woods within reach.
[2023-10-24] MEDS: LOPRESSOR 5 MG IV (23:12)
[2023-10-25] VITALS: BP 140/67
[2023-10-25] MEDS: UNASYN IV ×3 (00:01→11:13)
--- NOTE | 2023-10-25 00:31 | W.PN.UPDATE ---
Update Note
Progress Note Update
0 notified by RN that patient was in Afib with RVR. HR ranging from 140s-170s. BP 152/115. Pt diaphoretic. 5 mg IV metoprolol given.
0016 BP 140/67 HR 77 NSR
[2023-10-25 03:28] VITALS: BP 141/70
[2023-10-25 07:10] VITALS: BP 134/64
[2023-10-25] MEDS: SYMBICORT 160/4.5 MCG INHALER 2 PUFF INH (07:10)
[2023-10-25] MEDS: SPIRIVA RESPIMAT 2.5 MCG 2 PUFF INH (07:10)
[2023-10-25] MEDS: FOLVITE 1 MG PO (08:17)
[2023-10-25] MEDS: ELIQUIS 5 MG PO (08:17)
[2023-10-25] MEDS: NICODERM TRANSDERMAL 21 MG TRANSDERM (08:17)
[2023-10-25] MEDS: VITAMIN D3 (cholecalciferol) 125 MCG PO (08:18)
[2023-10-25] MEDS: LIPITOR 10 MG PO (08:18)
[2023-10-25] MEDS: CARDIZEM CD 240 MG PO (08:18)
[2023-10-25] MEDS: THIAMINE INJECTION 200 MG IV (08:18)
[2023-10-25] MEDS: MOBIC 15 MG PO (08:18)
[2023-10-25 08:20] LABS: Hemoglobin 11.4 g/dL (13.0-18.0); Mean Corp Hgb Conc. 34.5 g/dL (33.0-37.0); Mean Corpuscular Hgb 30.6 pg (27.0-31.0); Mean Corpuscular Volume 88.7 fL (80.0-94.0); Mean Platelet Volume 10.5 fL (7.4-10.4); Platelet Count 267 10^3/uL (130-400); Red Blood Cell Count 3.72 10^6/uL (4.70-6.10); Red Cell Dist. Width 14.2 % (11.5-14.5); White Blood Cell Count 21.5 10^3/uL (4.8-10.8)
[2023-10-25 09:03] LABS: Blood Urea Nitrogen 16 mg/dl (9-20); Calcium 8.9 mg/dl (8.4-10.2); Carbon Dioxide 24 mmol/L (22-30); Chloride 103 mmol/L (98-107); Estimated Creatinine Clearance 114 ml/min; Glucose 175 mg/dl (70-99); Potassium 3.5 mmol/L (3.5-5.1); Sodium 138 mmol/L (135-145); eGFR > 60.00
[2023-10-25 09:14] LABS: Magnesium 1.7 mg/dl (1.6-2.3)
--- NOTE | 2023-10-25 10:26 | W.PN.CD ---
Addendum entered and electronically signed by Latoya Sorensen MD 10/25/23 15:27:
The PROCESS ARCHITECT's note was reviewed and I agree with the note.
Patient was discharged before I could evaluation. However we did discuss the patient prior to discharge and increased diltiazem.
Original Note:
Today's Communication / Plan
-
Adjust rate controlling agent
Impression / Plan
-
BACKGROUND: 63M with COPD, tobacco use, and daily EtOH consumption with left shoulder pain which led to CXR which diagnosed lung mass presented for lung biopsy. He was found to be in atrial fibrillation with rapid ventricular response.
IMPRESSION/PLAN:
Paroxysmal atrial fibrillation
-New diagnosis this admission
-Echocardiogram with preserved LVEF
-Remains paroxysmal, episode of RVR overnight, asymptomatic, received IV Lopressor
-Currently on diltiazem to 240mg daily, will need more rate control
-[id number] score 1 for age (possibly 2 if HTN diagnosed), continue apixaban 5mg BID
Elevated blood pressure
-No formal diagnosis of hypertension preadmission
Postobstructive pneumonia, per primary,
Left upper lobe mass, concerning for malignancy
-Biopsy was unable to be completed due to new onset atrial fibrillation with her ventricular response
-Status post bronchoscopy 10/24/2023, Rapid On-Site Evaluation ([place]): Preliminary cytology of the lesion was suggestive of malignancy (final results are pending)
COPD, on inhaler therapy
Abnormal troponin, acute non-ischemic myocardial injury in setting of tachyarrhythmia (atrial fibrillation with ventricular response), peak 0.070
Smoking, full cessation recommended. he is working on this
SUBJECTIVE:
Denies palps, dizziness, and CP.
Physical Exam
Vital Signs/Labs
Vital Signs
Temp Pulse Resp BP Pulse Ox
97.6 F 86 18 134/64 97
10/25/23 07:10 10/25/23 08:18 10/25/23 07:11 10/25/23 08:18 10/25/23 08:28
10/25/23 05:40
10/25/23 05:40
PT Cancelled 10/23/23 06:00
INR Cancelled 10/23/23 06:00
APTT 34.0 Sec (23.4-35.0) 10/24/23 04:40
Magnesium 1.7 mg/dl (1.6-2.3) 10/25/23 05:40
10/22/23
12:33
Rzl-L-[place] Pept 624
LAB Results
10/22/23 10/22/23 10/23/23
11:49 19:17 01:24
Troponin I 0.065 H* 0.070 H* 0.069 H*
Physical Exam
Constitutional: No acute distress and Comfortable
EENT: Anicteric and Moist mucous membranes
Cardiovascular: Pedal edema is absent, Rhythm/rate is irregular and S1S2 is normal
Respiratory: Respiratory effort normal and Lungs clear to auscul.
GI: Soft, Distention absent, Flat, Non tender and Normal bowel sounds
Neuro/Psych: AO x 3
Other: Skin (warm and dry without edema)
Data Reviewed
-
Date of Service: October 25, 2023
Labs: Labs Reviewed by me
[2023-10-25 11:05] VITALS: BP 135/75
[2023-10-25] MEDS: CARDIZEM CD 120 MG PO (12:10)
--- NOTE | 2023-10-25 12:19 | W.PN.PUL3 ---
Today's Communication / Plan
-
Await bronchoscopy biopsy
Continue maintenance inhaler therapy as outpatient. See below
Eliquis therapy continues
Outpatient pulmonary follow-up, information left in chart
Disposition efforts
We will sign off. Please call with questions
Assessment
-
63-year-old male with left upper lobe mass worrisome for lung cancer, admitted for atrial fibrillation, new onset, hypoxia, tachycardia. Mildly elevated troponin noted. Started on heparin drip, rate control medications. We are asked to consider
bronchoscopy prior to long-term anticoagulation
Atrial fibrillation with rapid ventricular response
New onset
Now on Cardizem drip
Left upper lobe mass
Status post bronchoscopy 10/23
[place] positive for malignancy
Likely encasing pulmonary artery and upper airway bronchus
Suspected COPD
Hypoxia, 80% on room air
Suspected postobstructive pneumonia
Daily alcohol use
4-5 beers a day
80+ pack history of smoking, ongoing
Plan/recommendations
At this time, patient appears to be more comfortable, without complaints
Denies hemoptysis, chest pain
Heart rate is improved
Cardiology correspondence reviewed.
Eliquis therapy started yesterday p.m.
Moving forward
Continue with management per cardiology
Ideally will continue Symbicort/Spiriva as outpatient versus Trelegy. Would pursue treatment regimen that is easier and more affordable. Patient may already have at home Trelegy
Await biopsy results
Will require outpatient PET scan, and complete staging. Our office will facilitate
We will also require oncology evaluation. Our office will facilitate
Discussed importance of tobacco cessation, abstinence from alcohol
Reviewed with primary service, patient
Disposition efforts
We will sign off. Please call with questions
Subjective Data
-
Date of Service:
Date of Service: October 25, 2023
Subjective:
Patient feels well. Examined earlier this morning. Denies chest pain, cough, hemoptysis, nausea, abdominal pain. Appears to be in good spirits
Objective Data
Data Reviewed
Vital Signs / I&O / Oxygen:
Vital Signs
Temp Pulse Resp BP Pulse Ox
98 F 100 16 135/75 97
10/25/23 11:05 10/25/23 12:10 10/25/23 11:05 10/25/23 12:10 10/25/23 11:05
Intake and Output
10/24/23 10/25/23 10/26/23
06:59 06:59 06:59
Intake Total 633 / 633 1010 / 1010
Output Total 2600 / 2600
Balance -1966 / -1966 1010 / 1010
SaO2 97
Nasal Cannula flow liters per 2
minute
Physical Exam
General: Comfortable
HEENT: Normocephalic, Anicteric and Other (Poor dentition)
Cardiovascular: S1-S2, Regular Rhythm, Murmur (n), Rub (n) and Peripheral Edema (n)
Respiratory: Wheeze (n), Crackles (n), Rhonchi (n), Non-Labored Respirations and Other (Bronchial breath sounds, decreased left side apical posterior)
GI: Soft, Non Distended and Non Tender
Neurology: Awake, Alert and No Motor Deficits (Able to sit up without assistance)
Skin: Cyanosis (n), Jaundice (n) and Rash (n)
Labs/Micro/Reports
Lab Data
10/25/23 05:40
10/25/23 05:40
Microbiology
10/24/23 08:51 Bronch Left Upper Lobe Respiratory Culture - Preliminary
NO GROWTH
10/24/23 08:51 Bronch Left Upper Lobe Gram Stain - Preliminary
10/24/23 08:52 Bronch Left Upper Lobe Fungal Culture - Preliminary
Culture in progress.
Positive cultures are reported as soon as detected.
Final report to follow in four to five weeks.
--- NOTE | 2023-10-25 12:19 | W.PN.HOSP.TC ---
Today's Communication/Plan
-
await cards input
discharge planing for home
Assessment / Plan
Assessment / Plan
1. Afib with RVR - resolved
-New diagnosis
-Patient converted to normal sinus rhythm with Cardizem drip in ER and went into afib again.
-TTE on 10/15 reviewed - normal EF, PASP 25-30mmhg
-[id number] of 1 only and concern of fall risk with history of alcohol use by cardiology.
-Patient has been started on oral Eliquis therapy.
-Overnight patient had episode of RVR and was symptomatic, required IV metoprolol. Await cardiology recommendation further dose adjustment on rate control medication before discharge today
2. Post-obstructive pneumonia
-CT chest compared from previous CT chest and increased infiltrate on left upper lobe
-No cough/sputum production. Sputum culture ordered nonetheless
-WBC fluctuating and TWBC 21.5 k today
-will provide 10 more days of augmentin course.
3. Left lung mass
Exertional dyspnea
-Bronchoscopy aborted on day of ER visit due to vital instability
-CT chest images reviewed and a left lung mass causing compression of pulmonary artery on left, high risk of true PE in future, with associated new diagnosis of A-fib would favor oral anticoagulation. Will discuss with cardiology and pulmonology.
-Patient underwent uneventful bronchoscopy on 10/23 morning. Follow-up pathology report post discharge
4. Tobacco use
-Nicotine patch, active smoker
-Cessation advised
5. Hypomagnesemia
-replaced
6. Alcohol use disorder
-daily alcohol use
-Low MSAS for last 48hrs, monitor off MSAS/Ativan at this point
DVT PPX - Eliquis
Full code
Anticipated Discharge: Today
Subjective/Interval History
-
Date of Service: October 25, 2023
Resting comfortably in bed
Patient had episode of tachycardia induced diaphoresis last night required IV metoprolol
Heart rate better controlled in the morning today
Objective Data
-
Labs:
Laboratory Results
10/25/23
05:40
WBC 21.5 H
Hgb 11.4 L
Hct 33.0 L
Plt Count 267
Sodium 138
Potassium 3.5
Chloride 103
Carbon Dioxide 24
BUN 16
Creatinine 0.6 L
Glucose 175 H
Calcium 8.9
Vital Signs:
Vital Signs
Temp Pulse Resp BP Pulse Ox
98 F 100 16 135/75 97
10/25/23 11:05 10/25/23 12:10 10/25/23 11:05 10/25/23 12:10 10/25/23 11:05
I&O
10/24/23 10/25/23 10/26/23
06:59 06:59 06:59
Intake Total 633 / 633 1010 / 1010
Output Total 2600 / 2600
Balance -1966 / -1966 1010 / 1010
Review of Systems
-
Respiratory: Reports No Symptoms
Cardiac: Reports No Symptoms
Abdomen/GI: Reports No Symptoms
Physical Exam
-
General: Obese
HEENT: Negative Oxygen
Respiratory: Clear to Auscultation and Crackles
Cardiac: S1/S2 and Irregular Rhythm; Negative Murmur, Rub or Gallop
GI: Soft, Nontender and Nondistended
Musculoskeletal: No Edema
Neuro: AO x 3
Psych: Calm
--- NOTE | 2023-10-25 13:52 | CM ---
Chart reviewed and pt visited. 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
return to work.
I advised Lloyd to see his PCP after discharge to discuss this; he may be able to use FMLA,and after speaking with him, it seems that he has a short term disability benefit with his company (he advised that he has a deduction in his paycheck for
this).
Lloyd lives with his significant other who provided transport home today.
Plan: Discharge to home with no needs.
--- NOTE | 2023-10-26 14:57 | W.DCSUMMARY ---
Discharge Summary
Discharge Data
Date of Admission: 10/22/23
Date of Discharge: 10/25/23
-
Pending Results: No
Hospital Course
Discharging Physician : Dr Kb Arnett
Disposition : Home
Primary care physician : Dr Ramona Jacome
Principal Discharge diagnosis :
Paroxysmal atrial fibrillation with rapid ventricular rate
Postoperative pneumonia
Left upper lobe lung mass
Chronic Discharge diagnosis :
History of tobacco use
Alcohol use disorder
Hyperlipidemia
Hospital Course :
Patient is a 63-year-old male with mentioned past medical history was sent to ER after noted to having tachyarrhythmia. Patient has been recently diagnosed for left upper lobe pneumonia and was planned to get a bronchoscopy in outpatient basis when
patient was noted to be vitally unstable including tachyarrhythmic. In ER evaluation showing patient having new A-fib with RVR and was started on Cardizem drip. Patient converted to normal sinus rhythm and few hours with Cardizem drip. Cardiology
was involved in care and patient was started on oral Cardizem. An echocardiogram following day showed preserved EF without major valvulopathy. Patient CHADVASC score was low although in line of underlying malignancy and encasing left pulmonary
artery with narrowing patient opted to be put on Eliquis therapy. Patient underwent bronchoscopy in hospital and after bronchoscopy patient had recurrence of tachycardia. Patient Cardizem dose was increased.
On CT chest at admission patient was also noted to having new postobstructive pneumonia. Patient started on Unasyn. As patient got bronchoscopy bronchoscopic lavage fluid was sent for bacterial/fungal/acid-fast bacilli all of which were negative
at time of discharge. Patient was empirically changed on Augmentin for 10 more days at discharge.
Patient was discharged home with plan for patient to follow-up with pulmonology in office to follow-up pathology report and follow-up with cardiology for A-fib.
Important imaging findings :
None
Procedure findings :
None
Discharge Plan
-
Patient Disposition: Home (Routine Discharge)
Discharge Diagnosis/Procedures: GREG lung mass, post obstructive pneumonia, Afib/rvr
Condition: Fair
Diet: Regular
Activity: As tolerated
Driving Restrictions: No driving
Bathing Restrictions: OK to Shower
Referrals:
Corrie Contreras MD [Active] -
(11/05 at 345pm with molly
Will need PFT few days before
Our office will call to confirm)
Ramona Jacome CRNP [Family Provider] - in one week
Latoya Sorensen MD [Active] -
Prescriptions:
New
amoxicillin-pot clavulanate 875-125 mg tablet
1 tab PO BID Qty: 20 0RF
Eliquis 5 mg Tablet
5 mg PO BID Qty: 60 2RF
diltiazem HCl 180 mg Capsule,Extended Release 24hr
360 mg PO DAILY Qty: 60 1RF
Continued
atorvastatin 10 mg Tablet
10 mg PO DAILY
tramadol 50 mg Tablet
50 mg PO TIDPRN PRN (Reason: moderate pain)
acetaminophen [Tylenol Extra Strength] 500 mg Tablet
1,000 mg PO Q6HPRN PRN (Reason: mild pain)
cholecalciferol (vitamin D3) [Vitamin D3] 125 mcg (5,000 unit) Tablet
125 mcg PO DAILY
Trelegy Ellipta 200-62.5-25 mcg Blister With Device
1 inh INHALATION R DAILY
Discontinued
meloxicam 15 mg Tablet
15 mg PO DAILY
Discharge Orders:
Discharge Patient (As Directed); Ordered 10/25/23
Ordered By: Kb Arnett
Discharge Date and Time
Discharge Date/Time: 10/25/23 14:42
Print Language: FAROESE
== END 2023-10-25 14:42 | disposition home or self-care (01) | DRG 308 ==
LOC: 4 EAST ACU 15:37
PROVIDERS: Nurse Practitioner; ADMITTING PHYSICIAN Hospitalist; CONSULT PHYSICIAN Internal Medicine Cardiovascular Disease; CONSULT PHYSICIAN Internal Medicine Critical Care Medicine; EMERGENCY PHYSICIAN Student in an Organized Health Care Education/Training Program; FAMILY PHYSICIAN Nurse Practitioner Family
PROC: 0BD88ZX Extraction of Left Upper Lobe Bronchus, Via Natural or Artificial Opening Endoscopic, Diagnostic (ICD-10-PCS; 2023-10-24)
DX: I48.0 Paroxysmal atrial fibrillation (principal); J18.9 Pneumonia, unspecified organism; J44.1 Chronic obstructive pulmonary disease with (acute) exacerbation; J44.0 Chronic obstructive pulmonary disease with (acute) lower respiratory infection; I5A Non-ischemic myocardial injury (non-traumatic); C34.90 Malignant neoplasm of unspecified part of unspecified bronchus or lung; E83.42 Hypomagnesemia; F10.10 Alcohol abuse, uncomplicated; E78.5 Hyperlipidemia, unspecified; I48.91 Unspecified atrial fibrillation; I48.92 Unspecified atrial flutter
CPT/HCPCS: 88173; 88305; 71045; 71275; 80048; 80053; 81459; 82077; 82533; 83735; 83880; 84443; 84481; 84484; 85025; 85027; 85610; 85730; 87015; 87070; 87102; 87116; 87205; 88112; 88333; 88341; 88342; 93005; 94640; 96361; 96374; 96375; 96376; 99291; Q9967

== ENCOUNTER → 2023-11-12 08:41 | Outpatient (REF) | payer BC, SELFPAY | LOC: PET 08:41 | PROVIDERS: ATTENDING PHYSICIAN Internal Medicine Critical Care Medicine | DX: C44.92 Squamous cell carcinoma of skin, unspecified (principal) | CPT/HCPCS: 78815; A9552 ==

== ENCOUNTER → 2023-11-19 07:57 | Outpatient (REF) | payer BC, SELFPAY | LOC: MRI 07:57 | PROVIDERS: ATTENDING PHYSICIAN Internal Medicine Critical Care Medicine; FAMILY PHYSICIAN Nurse Practitioner Family | DX: C34.90 Malignant neoplasm of unspecified part of unspecified bronchus or lung (principal) | CPT/HCPCS: 70553; A9575 ==

== ENCOUNTER → 2023-12-02 07:18 | Outpatient (REF) | payer BC, SELFPAY ==
[2023-12-02 07:35] VITALS: BP 138/61; BP_SYST 71
[2023-12-02] MEDS: ANCEF 10 IV (08:22)
[2023-12-02 09:24] VITALS: BP 130/64; BP 152/62; BP_SYST 77
== END ==
LOC: RADI 07:18
PROVIDERS: ATTENDING PHYSICIAN Internal Medicine Hematology & Oncology; FAMILY PHYSICIAN Nurse Practitioner Family
DX: C34.12 Malignant neoplasm of upper lobe, left bronchus or lung (principal)
CPT/HCPCS: 36561; 76937; 77001; 99152; 99153; C1788

== ENCOUNTER → 2023-12-29 07:52 | Outpatient (REF) | payer BC, SELFPAY | LOC: WOUND 07:52 | PROVIDERS: ATTENDING PHYSICIAN Surgery; FAMILY PHYSICIAN Family Medicine | DX: L89.159 Pressure ulcer of sacral region, unspecified stage (principal); C34.00 Malignant neoplasm of unspecified main bronchus; J43.9 Emphysema, unspecified; I48.91 Unspecified atrial fibrillation; J44.9 Chronic obstructive pulmonary disease, unspecified | CPT/HCPCS: 99203 ==

== ENCOUNTER → 2024-02-19 07:46 | Outpatient (REF) | payer BC, SELFPAY | LOC: PET 07:46 | PROVIDERS: ATTENDING PHYSICIAN Internal Medicine Hematology & Oncology | DX: C34.12 Malignant neoplasm of upper lobe, left bronchus or lung (principal) | CPT/HCPCS: 78815; A9552 ==

== ENCOUNTER 2024-02-25 14:11 | Inpatient (IN) | payer BC, SELFPAY ==
[2024-02-25] VITALS (12 sets, daily range): BP systolic 92–186; BP diastolic 46–99; BMI 21.6; BMI 21.1
--- NOTE | 2024-02-25 09:38 | ED.GENMED ---
History of Present Illness
General
Chief Complaint: Breathing Problem
Source: patient and spouse
Time Seen by Provider: 02/25/24 09:22
History of Present Illness
History of Present Illness:
63yoM with a history of lung cancer on chemotherapy, COPD, atrial fibrillation, hypertension, and hyperlipidemia presenting with his for evaluation of shortness of breath. Symptoms began 4 days ago. He endorses exertional dyspnea as well as
generalized weakness. He is having a cough but he is unable to bring up any phlegm. His last chemotherapy treatment was about 1.5 weeks ago. He was seen by his oncologist yesterday who started him on Augmentin for presumed pneumonia. He denies
any fevers but is having cold sweats. No chest pain. He was scheduled to have outpatient blood work today but due to his dyspnea, he decided to come to the ED for evaluation.
Past History
Past History
ED Past Medical History: HTN and Other (Emphysema )
ED Past Surgical History: None
Social History
Tobacco: Smoker
Alcohol: None
Phy Exam
Physical Exam
Physical Exam:
Chronically ill appearing, no acute distress
General Physical Exam
General Presentation: no apparent distress
General Skin: warm and dry
General Habitus: normal
General Mental: alert
ENT Exam
ENT Exam: normocephalic
Cardiovascular Exam
Cardiovascular Exam: regular rate/rhythm and no edema
Pulmonary Exam
Pulmonary Exam: no respiratory distress and other (Bilateral rales, L>R. Speaking in full sentences. Oxygen saturation dropped to the 80s when he sat up during lung exam.)
Neurological Exam
Neurological Exam: alert
[place] Coma Scale
Eye Opening: Spontaneous
Verbal Response: Oriented
Motor Response: Obeys Commands
GCS Total Score: 15
Skin Exam
Skin Exam: normal color and warm/dry
Psychiatric Exam
Psychiatric Exam: normal mood/affect
Scores
Heart Failure Risk
Heart Failure Risk Score: Not Applicable
Course
Orders/Labs/Results
Orders:
Orders
02/25/24 09:11
Electrocardiogram (*1) Urgent
Reason for Study: Shortness of Breath
EKG- Treatment ONCE
02/25/24 10:07
COVID-19 Antigen Urgent
Source: Nasal Swab
Complete Blood Count/With Diff Urgent
Comprehensive Metabolic Panel Urgent
D-Dimer Urgent
NT-proBNP Urgent
Comment: BNP ADDED ON BY FLOOR 1:30PM
Troponin I Urgent
Influenza A+B Rapid Molecular Urgent
SHANNAN Source: Nasal Swab
Specimen Description:
02/25/24 11:07
CT Chest Pe Study Urgent
Comment:
Reason For Exam: SOB, cough, elevated D-dimer
Potassium Chloride [KCl] 20 meq PO NOW STA
02/25/24 12:39
Cefepime HCl [Maxipime] 2,000 mg IV NOW STA
02/25/24 12:44
Heparin Pf [Heparin Lock Flush] 500 unit .ROUTE .STK-MED ONE
02/25/24 12:52
Procalcitonin Urgent
PCT Algorithmm Indication: Respiratory
Blood Culture Q30M
SHANNAN Source: Blood/Venous
Specimen Description:
Blood Culture Q30M
SHANNAN Source: Blood/Venous
Specimen Description:
02/25/24 13:10
Heparin Pf [Heparin Lock Flush] 500 unit IV NOW ONE
02/25/24 13:30
Add On- LAB Urgent
Tests Added?: BNP
02/25/24 13:32
Admit/Transfer Patient As Directed
Co-Sign Provider:
Level of Care: Inpatient admission
Assign to:: Telemetry
Physician / Group: Munguia
Diagnosis: Hypoxia, Pneumonia
Reason for Telemetry: Arrhythmia
Date to Stop Telemetry: 02/28/24
Time to Stop Telemetry: 11:00
Reason for Hospitalization: IV abx
Expected length of stay greater than two midnights?: Yes
ELOS- Estimated Length of Stay in days: 3
I certify the patient meets the requirements for IP care: Yes
02/25/24 13:35
PRN Pain Medication Management As Directed
May give lesser potent ordered pain med per pt: Yes
preference::
Protocol:: Medication orders for pain may be administered in a
manner that supports deferring to patient preference
when the pt is:
- Requesting an ordered lesser potent pain medication.
Least to most potent pain medications are defined
as: acetaminophen < NSAID < tramadol < opioids
(morphine, oxycodone, hydromorphone).
- Requesting a lesser dose of the same medication IF
ORDERED.
- Requesting a less intrusive route of administration
if both routes are prescribed by the provider (PO <
IV).
02/25/24 13:36
Code Status As Directed
Resuscitation Status: Full Code
02/25/24 13:44
Azithromycin [Zithromax] 500 mg PO NOW STA
02/25/24 Dinner
Regular
At Your Request: Full Participation
Does patient need a safe tray?: No
02/25/24 15:33
0.9% Sodium Chloride 1000 ml [Nss] 1,000 ml IV 60 mls/hr
Acetaminophen [Tylenol] 650 mg PO Q4HPRN PRN
Ipratropium/Albuterol Sulfate [Duoneb] 3 ml INH R Q4HPRN PRN
02/25/24 15:33
ONCOLOGY CONSULT Routine
Consulting Provider: Lenin Dow
Was physician already notified: Yes
PULMONARY CONSULT Routine
Consulting Provider: Karen Calderón
Was physician already notified: Yes
[place] Urinary Antigen Urgent
SHANNAN Source: Urine
Specimen Description:
Respiratory Culture/Gram Stain Urgent
SHANNAN Source: Sputum
Specimen Description:
Date Specimen was Collected: 02/25/24
Time Specimen was Collected: 17:44
Strep pneumoniae Antigen Urgent
SHANNAN Source: Urine
Specimen Description:
Activity As Directed
Activity Level: Out of Bed-Early Mobility
Intake/ Output As Directed
Frequency: Per unit guidelines
Vital Signs As Directed
Frequency: Per unit guidelines
Weight As Directed
Frequency: Once
Comment: on admission
O2 Therapy [RESP] Routine
Titrate/Wean O2 to maintain O2 sat greater than (%): 92
Special Instructions: Wean as tolerated
Rx Incentive Spirometry [RESP] Routine
Frequency: q1h while awake
Rx Pep / Acapela [RESP] Routine
02/25/24 16:00
Ipratropium/Albuterol Sulfate [Duoneb] 3 ml INH R QID
02/25/24 20:00
Apixaban [Eliquis] 5 mg PO BID
Budesonide [Pulmicort] 0.5 mg INH R BID
Cefepime HCl [Maxipime] 1,000 mg IV Q6H
Diltiazem Extended Release [Cardizem Cd] 180 mg PO BID
Guaifenesin [Mucinex] 600 mg PO Q12
02/25/24 22:00
Gabapentin [Neurontin] 200 mg PO HS
02/26/24 06:00
Basic Metabolic Panel IN AM
Complete Blood Count/No Diff IN AM
02/26/24 08:00
Atorvastatin [Lipitor] 10 mg PO DAILY
Azithromycin [Zithromax] 500 mg PO DAILY
02/28/24 11:00
DC Protocol for Telemetry ONCE
Abnormal Lab Results
02/25/24 02/25/24
10:07 12:52
WBC 29.1 H 10^3/uL
(4.8-10.8)
RBC 2.58 L 10^6/uL
(4.70-6.10)
Hgb 8.8 L g/dL
(13.0-18.0)
Hct 25.2 L %
(39.0-52.0)
MCV 97.7 H fL
(80.0-94.0)
MCH 34.1 H pg
(27.0-31.0)
RDW 24.4 H %
(11.5-14.5)
Plt Count 114 L 10^3/uL
(130-400)
Abs Immat Gran (auto) 1.4 H 10^3/uL
(0-0.05)
Absolute Neuts (auto) 26.2 H 10^3/uL
(1.4-6.5)
Absolute Lymphs (auto) 0.9 L 10^3/uL
(1.2-3.4)
Immature Gran % 4.7 H %
(0-0.5)
Neutrophils % 89.8 H %
(42.2-75.2)
Lymphocytes % 3.2 L %
(20.5-51.1)
Monocytes % 1.6 L %
(1.7-9.3)
D-Dimer 1.42 H ug/mlFEU
(0.00-0.50)
Potassium 3.4 L mmol/L
(3.5-5.1)
BUN 30 H mg/dl
(9-20)
Creatinine 0.5 L mg/dL
(0.7-1.3)
Glucose 126 H mg/dl
(70-99)
Alkaline Phosphatase 185 H U/L
(38-126)
Total Protein 5.2 L g/dl
(6.3-8.2)
Albumin 2.8 L g/dl
(3.5-5.0)
Procalcitonin 0.80 H ng/ml
(0.0-0.25)
02/25/24 10:07
02/25/24 10:07
Vital Signs
Initial and Last Documented VS:
Initial Vital Signs
Temp Pulse Resp BP Pulse Ox
98.0 F 91 16 128/99 98
02/25/24 09:04 02/25/24 09:04 02/25/24 09:04 02/25/24 09:04 02/25/24 09:04
Last Documented Vital Signs
Temp Pulse Resp BP Pulse Ox
97.8 F 87 18 131/68 99
02/25/24 15:49 02/25/24 15:49 02/25/24 15:49 02/25/24 15:49 02/25/24 17:40
MDM/Problems Addressed
Differential Diagnosis Includes:
63yoM here with SOB, cough, and generalized weakness x 4 days. C/o chills but no fevers. Hx of lung cancer on chemotherapy. He is afebrile and hemodynamically stable. Oxygen saturation 98% in triage although oxygen did drop to the 80s sitting up on
the stretcher during exam. Rales noted on lung exam. Differential diagnosis includes but is not limited to: pneumonia, PE, COPD exacerbation, malignant pleural effusion
Initial ED plan: Check cardiac labs, D-dimer, COVID/flu swab, EKG, and CXR.
*EKG
Interpreted by ED Provider?: Yes
EKG Intrepretation Date: 02/25/24
Heart Rate: 104
Rate: tachycardiac
Rhythm: sinus and PAC's
[place]: normal axis
Interval: normal interval
QRS Pattern: normal QRS
Ischemia: no ischemia
*Critical Care Note
Total Time (30-74mins, 75-104mins- exclusive of procedures): Not Applicable
Update Note
Update Note:
Labs reveal a leukocytosis with a WBC of 29. D-dimer elevated and CXR switched to a CTA chest. CT is negative for pulmonary embolism. There is widespread interstitial and alveolar opacities which may be infectious/inflammatory or related to
underlying malignancy. Procalcitonin, blood cultures, and IV cefepime ordered. Patient requiring 2L NC in ED. He was admitted for further management.
ED Attending Note
-
Portions of this chart may have been created with voice recognition software.� Occasional wrong word or��sound alike� substitutions may have occurred due to the inherent limitations of voice recognition software.
Discharge Plan
Departure
Patient Disposition: Admit
Date of Disposition: 02/25/24
Time of Disposition: 12:53
Presentation/result/management discussed w/ accepting MD/DO: Hospitalist
Discharge Problem:
Acute hypoxemic respiratory failure, Opacity of lung on imaging study
Interventions
Interventions:
*Risk Screen - Suicide Last Done: 02/25/24 09:08
*General Assessment Last Done: 02/25/24 10:21
*Neglect/Abuse Screening Last Done: 02/25/24 09:08
ED- Fall Risk Assessment Last Done: 02/25/24 10:21
*ED COVID-19 Vaccine History Last Done: 02/25/24 10:21
*Nursing Disposition Last Done: 02/25/24 15:31
ED- Cardiac Assessment Last Done: 02/25/24 10:22
ED- Pulmonary Assessment Last Done: 02/25/24 10:22
Discharge Date and Time
Discharge Date/Time: 02/25/24 15:31
[2024-02-25 10:46] LABS: COVID-19 Antigen Negative (Negative); D-Dimer 1.42 ug/mlFEU (0.00-0.50)
[2024-02-25 10:49] LABS: Hematocrit 25.2 % (39.0-52.0); Hemoglobin 8.8 g/dL (13.0-18.0); Mean Corp Hgb Conc. 34.9 g/dL (33.0-37.0); Mean Corpuscular Hgb 34.1 pg (27.0-31.0); Mean Corpuscular Volume 97.7 fL (80.0-94.0); Mean Platelet Volume 9.2 fL (7.4-10.4); Platelet Count 114 10^3/uL (130-400); Red Blood Cell Count 2.58 10^6/uL (4.70-6.10); Red Cell Dist. Width 24.4 % (11.5-14.5); White Blood Cell Count 29.1 10^3/uL (4.8-10.8)
[2024-02-25 10:54] LABS: ALT (SGPT) 38 U/L (0-50); AST (SGOT) 28 U/L (17-59); Albumin 2.8 g/dl (3.5-5.0); Alkaline Phosphatase 185 U/L (38-126); Blood Urea Nitrogen 30 mg/dl (9-20); Calcium 8.5 mg/dl (8.4-10.2); Carbon Dioxide 28 mmol/L (22-30); Chloride 102 mmol/L (98-107); Estimated Creatinine Clearance 115 ml/min; Glucose 126 mg/dl (70-99); Potassium 3.4 mmol/L (3.5-5.1); Sodium 140 mmol/L (135-145); Total Bilirubin 0.5 mg/dl (0.2-1.3); Total Protein 5.2 g/dl (6.3-8.2); eGFR > 60.00
[2024-02-25 10:58] LABS: % Basophils 0.7 % (0-2); % Immature Granulocytes 4.7 % (0-0.5); % Lymphocytes 3.2 % (20.5-51.1); % Monocytes 1.6 % (1.7-9.3); % Neutrophils 89.8 % (42.2-75.2); Absolute Basophils 0.2 10^3/uL (0-0.2); Absolute Immature Granulocytes 1.4 10^3/uL (0-0.05); Absolute Lymphocytes 0.9 10^3/uL (1.2-3.4); Absolute Monocytes 0.5 10^3/uL (0.1-0.6); Absolute Neutrophils 26.2 10^3/uL (1.4-6.5); Nucleated Red Blood Cells % 0.3 % (-); Troponin I 0.015 ng/ml
[2024-02-25] MEDS: KCL 20 MEQ PO (11:19)
[2024-02-25] MEDS: MAXIPIME 2000 MG IV (13:10)
--- NOTE | 2024-02-25 13:20 | W.PN.UPDATE ---
Update Note
Progress Note Update
This is an addendum to H&P written by PRADEEP Andrade
I saw and examined the patient.
The RN CCU's note was reviewed and I agree with the note.
Comment:
Mr. Lloyd Lawrence is a 63 yo man with hx lung cancer on chemotherapy, COPD, atrial fibrillation, HTN, HLD presents to the ER with shortness of breath. Patient was started on Augmentin yesterday by Oncologist for presumed pneumonia.
Triage VS: T 98, P 91, RR 16, BP 128/99, SpO2 98%
LABS: WBC 29.1, Hg 8.8, PLT 114, Na 140, K+ 3.4, BUN 30, Cr 0.5, Glucose 126, T. Bili 0.5, AST 28, ALT 38, Alk Phos 185
CT Chest:
IMPRESSION:
Overall decrease in size/volume of known left upper lobe malignancy which extends to and involves the left anterior chest wall and left hilum (although increased FDG uptake on recent PET scan February 19, 2024).
Significant progression of widespread bilateral interstitial and alveolar opacities, now most prominent in the left lower lobe in comparison to most recent prior PET scan. Although findings may be inflammatory/infectious, bilateral spread of
malignancy is also possible.
No findings to confirm CENTRAL pulmonary embolism with evaluation of the some of the more peripheral pulmonary artery branches limited, especially in the left upper lobe, as noted above.
Findings suspicious for progression of mediastinal lymphadenopathy. Cannot exclude new small volume right hilar lymphadenopathy.
Widespread bilateral interstitial and alveolar opacities seen on CT - infectious versus spread of malignancy. Will treat for pneumonia, monitor response
-covid and flu negative
-continue IV Cefepime, add Azithromycin for atypical coverage
-1L gentle IVF
-mucinex, acapella, duonebs
-sputum culture
-Pulm and Oncology consults
Hx Lung CA - diagnosed October
-last chemotherapy 1.5 weeks ago
Hypokalemia
-repleted by ER
Atrial Fibrillation
-UNIT SECRETARY Eliquis
DVT PPx UNIT SECRETARY Eliquis
FULL CODE
76 minutes spent on patient evaluation
--- NOTE | 2024-02-25 13:21 | HPS.HSE ---
Family Physician
-
Family Physician: Corrie Contreras
Chief Complaint
-
Shortness of Breath and Cough
History of Present Illness
Patient is a 63 y/o male past medical history of non-small cell lung cancer, COPD and paroxysmal atrial fibrillation who presents with increased cough and shortness of breath. Patient's significant other at the bedside provides additional history.
Patient has been have worsening sympotms over the past five with worsening shortness of breath. He reports worsening cough that is now productive of sputum though he is unable to comment on the color. Patient reports sweats/chills particularly
this morning, but denies recorded fevers.
Medical History
Past Medical History
Past Medical History: Reports Other
Additional Past Medical History:
Non-Small Cell Lung Cancer
COPD
Paroxysmal Atrial Fibrillation
Past Surgical History: Reports Other
Additional Past Surgical History:
Wrist Surgery
Social History
Tobacco: Former Smoker (Quit in October 2023)
Alcohol: Occasional
Drug: None
Living: With Family
Family History
Family History: Not pertinent
Allergies / Home Medications
Allergies reflects when Allergies were last updated in [facility].
Home Medications with original date entered in [facility]
Allergy/Medication List:
Allergies
Allergy/AdvReac Type Severity Reaction Status Date / Time
No Known Allergies Allergy Verified 02/25/24 09:08
Home Medications
acetaminophen 500 mg tablet (Tylenol Extra Strength) 1,000 mg PO Q6HPRN PRN mild pain 10/22/23
atorvastatin 10 mg tablet 10 mg PO DAILY 10/22/23
fluticasone fur. 200 mcg-umeclid 62.5 mcg-vilant 25 mcg inhalat.powder (Trelegy Ellipta) 1 inh inhalation R DAILY 10/22/23
apixaban 5 mg tablet (Eliquis) 5 mg PO BID #60 tabs 10/25/23
amoxicillin-potassium clavulanate 1,000 mg-62.5 mg tablet,ext.rel 12hr 1 tab PO BID 02/25/24
cholecalciferol (vitamin D3) 50 mcg (2,000 unit) tablet (Vitamin D3) 50 mcg PO DAILY 02/25/24
dexamethasone 4 mg tablet 4 mg PO UD 02/25/24
diltiazem HCl 180 mg capsule,extended release 24 hr 180 mg PO BID 02/25/24
gabapentin 100 mg capsule 100 mg PO HSPRN PRN sleep 02/25/24
gabapentin 100 mg capsule 200 mg PO HS 02/25/24
Review of Systems
-
A 12 point ROS was completed and negative except as noted: Yes
Respiratory: Reports See HPI
Cardiac: Denies Chest Pain or Palpitations
Abdomen/GI: Denies Abdominal Pain, Nausea, Vomiting or Diarrhea
Physical Exam
Vital Signs
Vital Signs
Temp Pulse Resp BP Pulse Ox
98.0 F 88 24 102/53 95
02/25/24 09:04 02/25/24 13:00 02/25/24 13:00 02/25/24 13:00 02/25/24 13:00
Physical Exam
General: Comfortable and Conversant
HEENT: Anicteric, Moist mucous membranes and Oxygen (Nasal Cannula)
Respiratory: Non Labored Respirations and Decreased Breath Sounds (Throughout)
Cardiac: S1/S2 and Regular Rhythm; No Tachycardia
GI: Soft and Non Tender
Rectal: Deferred by Provider
Musculoskeletal: No Clubbing, No Cyanosis and No Edema
Skin: Warm and Dry
Neuro: Awake, Alert, Oriented and Nonfocal/grossly intact
Psych: Calm
Laboratory Results
-
02/25/24 10:07
02/25/24 10:07
Laboratory Results
Total Bilirubin 0.5 mg/dl (0.2-1.3) 02/25/24 10:07
AST 28 U/L (17-59) 02/25/24 10:07
ALT 38 U/L (0-50) 02/25/24 10:07
Alkaline Phosphatase 185 U/L (38-126) H 02/25/24 10:07
Troponin I 0.015 ng/ml 02/25/24 10:07
Data Reviewed
-
CT Scan: Report Reviewed by me
Lab Data: Labs Reviewed by me
Impression/Plan
-
Acute Hypoxic Respiratory Insufficiency, secondary to bilateral pneumonia
-Continue supplemental oxygen
-Wean as tolerated
Bilateral Interstitial Pneumonia
-Consult Pulmonary
-Continue Cefepime and Zithromax
-Continue Mucinex
-Encourage use of incentive spirometer and Acapella
Non-Small Cell Lung Cancer
-Patient currently on immunotherapy (Keytruda) and chemotherapy (unknown meds possibly carboplatin/Taxol)
-Consult Oncology
COPD
-Transition Trelegy to Pulmicort and DuoNeb during hospitalization
Paroxysmal Atrial Fibrillation
-Continue Eliquis for anticoagulation
-Continue diltiazem for rate control
Hyperlipidemia
-Continue atorvastatin
DVT proph: Eliquis
Code Status: DNR
--- NOTE | 2024-02-25 13:59 | CON.PUL ---
Consultation
Consultation Request
Date/Time Consultation Requested: 02/25/24
Date/Time Consultation Performed: 02/25/24
Performing Provider: Kaitlynn
Reason for Consultation: Lung cancer
Medical History
-
History of Present Illness:
Patient is a 63-year-old male with previous history of non-small cell lung cancer, COPD, paroxysmal atrial fibrillation presenting to ER with increased cough and shortness of breath. He does feel he had concurrent fever and chills at home.
Chest imaging demonstrating opacities suggesting pneumonia. He has been undergoing chemotherapy for the past 3 months and tolerating. He has a port in place. O2 jyotsna 89% on room air, placed on supplemental O2. No prior history of O2 needs.
Admitted for IV antibiotics for presumed pneumonia.
Past Medical History
Past Medical History: Other (see list below)
Social History
Tobacco: Former Smoker
Alcohol: None
Drug: None
Family History
Family History: Reviewed & Not Pertinent
Allergies / Home Medications
Allergies
Allergy/AdvReac Type Severity Reaction Status Date / Time
No Known Allergies Allergy Verified 02/25/24 09:08
Home Medications
�Medication �Instructions �Recorded �Confirmed �Last Taken �Type
acetaminophen 500 mg tablet 1,000 mg PO Q6HPRN PRN mild pain 10/22/23 02/25/24 12/01/23 History
(Tylenol Extra Strength)
atorvastatin 10 mg tablet 10 mg PO DAILY 10/22/23 02/25/24 02/25/24 History
fluticasone fur. 200 mcg-umeclid 1 inh inhalation R DAILY 10/22/23 02/25/24 02/25/24 History
62.5 mcg-vilant 25 mcg
inhalat.powder (Trelegy Ellipta)
apixaban 5 mg tablet (Eliquis) 5 mg PO BID #60 tabs 10/25/23 02/25/24 02/25/24 Rx
amoxicillin-potassium clavulanate 1 tab PO BID 02/25/24 02/25/24 02/25/24 History
1,000 mg-62.5 mg tablet,ext.rel
12hr
cholecalciferol (vitamin D3) 50 50 mcg PO DAILY 02/25/24 02/25/24 02/25/24 History
mcg (2,000 unit) tablet (Vitamin
D3)
dexamethasone 4 mg tablet 4 mg PO UD 02/25/24 02/25/24 Unknown History
diltiazem HCl 180 mg 180 mg PO BID 02/25/24 02/25/24 02/25/24 History
capsule,extended release 24 hr
gabapentin 100 mg capsule 100 mg PO HSPRN PRN sleep 02/25/24 02/25/24 Unknown History
gabapentin 100 mg capsule 200 mg PO HS 02/25/24 02/25/24 02/24/24 History
vancomycin 125 mg capsule 125 mg PO DAILY 02/25/24 02/25/24 02/25/24 History
Review of Systems
-
History Source: Patient
All other systems: Negative unless noted
Vitals / Labs / Diagnostic Testing
Vital Signs
Temp Pulse Resp BP Pulse Ox
98.0 F 88 24 102/53 95
02/25/24 09:04 02/25/24 13:00 02/25/24 13:00 02/25/24 13:00 02/25/24 13:00
Lab Data
02/25/24 10:07
02/25/24 10:07
Microbiology
02/25/24 10:07 Nasal Swab Influenza Types A & B (CELINA) - Final
Negative for Influenza A & B, NAAT
Negative results must be combined with clinical observations
and patient history.
Nucleic Acid Amplification test (NAAT)performed on the
[employer] platform.
Diagnostic Testing:
Physical Exam
-
HEENT: Normocephalic, Anicteric and Moist Mucous Membranes
Cardiovascular: S1/S2 and Regular Rhythm
Respiratory: Rales and Non-Labored Respirations
GI: Soft, Non Distended and Non Tender
Neurology: Awake, Alert, Oriented and No Motor Deficits
Skin: Warm, Dry and Good Color
General: Comfortable and Other (NAD)
Assessment
-
Patient is a 63-year-old male with previous history of non-small cell lung cancer, COPD, paroxysmal atrial fibrillation presenting to ER with increased cough and shortness of breath. He does feel he had concurrent fever and chills at home.
Chest imaging demonstrating opacities suggesting pneumonia. He has been undergoing chemotherapy for the past 3 months and tolerating. He has a port in place. O2 jyotsna 89% on room air, placed on supplemental O2. No prior history of O2 needs.
Admitted for IV antibiotics for presumed pneumonia. We are consulted for eval.
Presumed PNA
Chills
SOB/Cough
Opacities on CT suggesting PNA
Anemia
Leukocytosis
Thrombocytopenia
Conditions present [employer]
Squamous cell carcinoma-lung primary
Left upper lobe mass incidental finding on CAT scan 10/14/2023 s/p recent bronchoscopy 10/24/23
[place] positive for malignancy
Likely encasing pulmonary artery and upper airway bronchus
Moderate COPD- spirometry with moderate airflow obstruction FEV1 1.63 L of 53% of predicted on 10/16/2023; DLCO 59%
Emphysema lung
6 min walk testing today 10/16/2023: No oxygen desaturation.patient has significant tachycardia up to 148. Dyspnea sensation 10
on Trelegy
AFib
Daily alcohol use: 4-5 beers a day
80+ pack history of smoking, ongoing
Plan
O2 jyotsna 89% on room air, he is placed on low-dose supplemental O2
Has not required O2 in the past
Eventually will need home O2 eval
CT imaging reviewed demonstrating possible opacities representing pneumonia
This would coincide with his leukocytosis, subjective chills on admission
Agree with IV antibiotics, empirically
Can check sputum culture if able
Had been receiving chemotherapy for the past 3 months [address] reports disease response and treatment with overall decrease in size and volume of left upper lobe mass
Disease progression and/or drug-induced lung injury less likely--but can be considered
Would reimage in the next 48 hours for response
Can continue airway clearance
PT OT, IS, Acapella
Nebulizers 4 times daily
Known to [facility], recent PET scan reviewed as well
Currently treatment is likely to be on hold
He has a port in place
Discussed importance of tobacco cessation, abstinence from alcohol
He has remained smoke-free since October
Continue smoking cessation
Reviewed with primary service, patient
We will follow
Diagnostic Data
CT Chest 02/25/24- Overall decrease in size/volume of known left upper lobe malignancy which extends to and involves the left anterior chest wall and left hilum (although increased FDG uptake on recent PET scan February 19, 2024). Significant
progression of widespread bilateral interstitial and alveolar opacities, now most prominent in the left lower lobe in comparison to most recent prior PET scan. Although findings may be inflammatory/infectious, bilateral spread of malignancy is also
possible. No findings to confirm CENTRAL pulmonary embolism with evaluation of the some of the more peripheral pulmonary artery branches limited, especially in the left upper lobe, as noted above. Findings suspicious for progression of mediastinal
lymphadenopathy. Cannot exclude new small volume right hilar lymphadenopathy.
10/22/23- 1. Again seen is a large mass within the left hilum and medial left upper lobe compatible with a primary lung cancer with associated invasion of the mediastinum and anterior chest wall. This mass encases and significantly narrows the left
main point artery and occludes the left upper lobe bronchus and narrows left lower lobe bronchus. Compared to the prior CT, there is new irregular airspace consolidation within the central aspect of the inferior left upper lobe suspicious for post
obstructive pneumonia. 2. No evidence for pleural embolism.
PET/CT 02/19/24- There is decreased size of the lesion involving the left upper lobe extending into the left hilum/mediastinum as well as involving the anterior chest wall. There is however increased associated hypermetabolic activity with a max SUV
of 37.6, previously 27.1.
There is a new hypermetabolic focus within the lingula which demonstrates a max SUV of 8.2.
There is an opacity within the right upper lung which appears new from prior and demonstrates central cavitation and has a max SUV of 3.0. There are additional smaller or less opacities within the lower lateral right lower lung with mild
hypermetabolic activity with a max SUV of 2.1 (series 4 image 103). There are multiple new nodules within the left lower lobe which measure up to 6 mm and demonstrate a max SUV of 1.6 (series 4 image 97).
Mild centrilobular emphysematous changes. Right chest wall port with catheter tip terminating in the superior vena cava, unchanged. There is mild atherosclerotic calcifications of the thoracic aorta.
ECHO 10/16/23- Left ventricular ejection fraction is 60-65%, by visual assessment. Normal regional wall motion. Normal right ventricular size and function. Trace tricuspid regurgitation. Estimated pulmonary artery pressure of 25-30 mmHg. No prior
study available for comparison.
Total time spent on this consultation __76__ minutes which includes review of history, physical exam, medications, laboratory data, personal review of imaging, extensive review of outpatient records, discussion with care team and respiratory therapy.
[2024-02-25] MEDS: ZITHROMAX 500 MG PO (14:11)
[2024-02-25] MEDS: DUONEB 3 ML INH ×2 (15:46→20:16)
--- NOTE | 2024-02-25 15:50 | PTCARENOTE ---
Received pt from ER.Pt awake/alert and oriented x3, forgetful with relation to health history, poor historian, Pt c/o intermittent pain in right chest for the past week,tolerable at this time. Pt VSS 99% on 2L. NSR with PACs and PVCs on tele. Pt
oriented to room, call woods within reach, plan of care continues.
[2024-02-25 15:52] LABS: NT-proBNP 938 pg/ml
[2024-02-25] MEDS: NSS 1000 IV (16:06)
[2024-02-25] MEDS: TYLENOL 650 MG PO (18:32)
[2024-02-25] MEDS: PULMICORT 0.5 MG INH (20:17)
[2024-02-25] MEDS: CARDIZEM CD 180 MG PO (20:25)
[2024-02-25] MEDS: MUCINEX 600 MG PO (20:25)
[2024-02-25] MEDS: ELIQUIS 5 MG PO (20:26)
[2024-02-25] MEDS: NEURONTIN 200 MG PO (20:26)
[2024-02-25] MEDS: STERILE WATER FOR INJECTION 10 ML IV (20:26)
[2024-02-25] MEDS: MAXIPIME 1000 MG IV (20:27)
[2024-02-25] MEDS: ULTRAM 25 MG PO (20:50)
[2024-02-25] MEDS: MORPHINE SULFATE 1 MG IV (22:19)
--- NOTE | 2024-02-25 22:25 | PTCARENOTE ---
Patient reporting 9/10 R chest/rib pain after receiving breathing treatment and pain when taking a deep breath. BP 186/77, HR 107, RR 30, 94% on 2L of oxygen. Manual BP 148/60. IRRIGATION SYSTEM INSTALLER made aware, stat tramadol ordered and given to patient. EKG showing
SR with PVCs and PACs. Stat chest XR ordered. Patient still complaining of 8/10 pain, IRRIGATION SYSTEM INSTALLER made aware, orders for IV morphine given at 2219. Plan of care ongoing.
[2024-02-26] VITALS (7 sets, daily range): BP systolic 94–119; BP diastolic 51–63; BMI 21.1
[2024-02-26 01:17] LABS: Urine Albumin 1+ (Neg - Trace); Urine Bilirubin 1+ (Negative); Urine Character Slightly Cloudy (Clear); Urine Color Yellow; Urine Glucose Negative (Negative); Urine Ketone Negative (Negative); Urine Leukocyte Trace (Negative); Urine Nitrite Negative (Negative); Urine Occult Blood 4+ (Negative); Urine Urobilinogen Negative (Neg - 1+)
[2024-02-26] MEDS: MAXIPIME 1000 MG IV ×4 (01:36→20:15)
[2024-02-26] MEDS: STERILE WATER FOR INJECTION 10 ML IV ×4 (01:36→20:15)
[2024-02-26 01:41] LABS: Urine Amorphous Seen; Urine Mucus Many; Urine Squamous Cell >30 /LPF (Few)
[2024-02-26 01:42] LABS: Urine Bacteria Many (Negative); Urine Red Blood Cell >100 /HPF (0-2)
[2024-02-26] MEDS: DILAUDID 0.5 MG IV ×3 (01:54→14:40)
[2024-02-26 01:55] LABS: Urine White Cell 26-30 /HPF (0-5)
[2024-02-26 06:26] LABS: Hematocrit 23.6 % (39.0-52.0); Hemoglobin 7.7 g/dL (13.0-18.0); Mean Corp Hgb Conc. 32.6 g/dL (33.0-37.0); Mean Corpuscular Hgb 34.2 pg (27.0-31.0); Mean Corpuscular Volume 104.9 fL (80.0-94.0); Mean Platelet Volume 9.9 fL (7.4-10.4); Platelet Count 124 10^3/uL (130-400); Red Blood Cell Count 2.25 10^6/uL (4.70-6.10); Red Cell Dist. Width 23.7 % (11.5-14.5); White Blood Cell Count 25.5 10^3/uL (4.8-10.8)
--- NOTE | 2024-02-26 06:32 | DOWNTIME ---
There was a [employer] Downtime on 02/26/2024 from 0200 to 02/26/2024 at 0325 . Downtime documentation of patient's care, including medication administrations, has been reconciled in the electronic record per guidelines. Refer to the
patient's paper chart under the miscellaneous tab to see printed paper medication records and downtime forms.
[2024-02-26 06:49] LABS: Blood Urea Nitrogen 23 mg/dl (9-20); Calcium 8.1 mg/dl (8.4-10.2); Carbon Dioxide 28 mmol/L (22-30); Chloride 104 mmol/L (98-107); Estimated Creatinine Clearance 109 ml/min; Glucose 75 mg/dl (70-99); Potassium 3.3 mmol/L (3.5-5.1); Sodium 139 mmol/L (135-145); eGFR > 60.00
[2024-02-26] MEDS: DUONEB INH ×2 (07:41→11:20)
[2024-02-26] MEDS: PULMICORT INH (07:41)
[2024-02-26] MEDS: CARDIZEM CD 180 MG PO (08:10)
[2024-02-26] MEDS: ZITHROMAX 500 MG PO (08:10)
[2024-02-26] MEDS: LIPITOR 10 MG PO (08:10)
[2024-02-26] MEDS: MUCINEX 600 MG PO ×2 (08:10→20:15)
[2024-02-26] MEDS: ELIQUIS 5 MG PO ×2 (08:10→20:15)
[2024-02-26] MEDS: NSS 1000 IV (08:11)
--- NOTE | 2024-02-26 09:52 | CON.ONC ---
Impression
Impression
locally advanced non-small cell lung cancer with invasion of the mediastinum and the left chest, PET 02/18 decreased volume of disease however, increase SUV
progression of widespread bilateral interstitial and alveolar opacities
p/w SOB, cough that worsened on augmentin & medrol dose pack OP
suspected PNA on IVabx
acute on chronic anemia, baseline Hgb 10.5-11.5g/dL
leukocytosis GCSF, Steroids, +/- infection
Plan
Plan
f/u Bcx, ucx, sputum cx
f/u pulmonary consult
on IV abx for suspected PNA
acute on chronic anemia evaluation
Patient History
History of Present Illness
63yo M known to Dr. Garcia for management of locally advanced non-small cell lung cancer with invasion of the mediastinum and the left chest wall who presented with increased cough and SOB. He reports a possible subjective fever with
chills at home. His cough his productive with barker sputum. Initial evaluation notable for afebrile, hypoxia requiring 2L NC. WBC 25.5, Hgb 7.7g/dL, MCV 104.9, platelet count 124,000, Na 139, potassium 3.3, BUN 23, creatinine 0.4. UA +4 bld, RBC
>100, trace leuk est, pyuria. CT chest shows overall decrease in size/volume of known left upper lobe malignancy which extends to and involves the left anterior chest wall and left hilum, significant progression of widespread bilateral interstitial
and alveolar opacities, now most prominent in the left lower lobe in comparison to most 02/18 PET scan, and suspicious for progression of mediastinal lymphadenopathy. He has been admitted and started on IV abx for suspected PNA with consultation
requests for medical oncology and pulmonary.
Lloyd was initially diagnosed with locally advanced NSCLC. squamous subtype in October 2023. He started Carbo, Taxol, pembro November 2023. He completed his 3rd cycle of carbo/Taxol w GCSF 02/12 and had his 4th dose of Keytruda 02/04. His most
recent PET/CT 02/19/2024 showed decreased size of the GREG lesion, however there was an increase in the hypermetabolic activity and new hypermetabolic consolidation within the lingula and RUL that could represent infection vs metastasis. He was
started on a medrol dose pack, Augmentin, and PO vanco ppx on 02/23 after evaluation in the office by Dr. Garcia.
Clinically, continues with SOB, and productive barker sputum. He has been constipated x 2 days, however, is passing gas and denies n/v. He denies any overt bleeding or atypical bruising.
Afebrile, no hypotension, 2L NC. He has taken IV morphine and IV Dilaudid prn pain.
Past-Medical/Surgical History
PMH AF, Non-small cell lung cancer, squamous cell histology, PD-L1 0%, without apparent distant metastatic disease but invading chest wall and mediastinum, Hypertension, Anxiety
[facility] wrist 1976
Social quit smoking this year, 2 ETOH/day. denies recreational drugs. 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
Family mother colon cancer
Patient Medication
�Medication �Instructions �Recorded �Confirmed �Last Taken �Type
acetaminophen 500 mg tablet 1,000 mg PO Q6HPRN PRN mild pain 10/22/23 02/25/24 12/01/23 History
(Tylenol Extra Strength)
atorvastatin 10 mg tablet 10 mg PO DAILY 10/22/23 02/25/24 02/25/24 History
fluticasone fur. 200 mcg-umeclid 1 inh inhalation R DAILY 10/22/23 02/25/24 02/25/24 History
62.5 mcg-vilant 25 mcg
inhalat.powder (Trelegy Ellipta)
apixaban 5 mg tablet (Eliquis) 5 mg PO BID #60 tabs 10/25/23 02/25/24 02/25/24 Rx
amoxicillin-potassium clavulanate 1 tab PO BID 02/25/24 02/25/24 02/25/24 History
1,000 mg-62.5 mg tablet,ext.rel
12hr
cholecalciferol (vitamin D3) 50 50 mcg PO DAILY 02/25/24 02/25/24 02/25/24 History
mcg (2,000 unit) tablet (Vitamin
D3)
dexamethasone 4 mg tablet 4 mg PO UD 02/25/24 02/25/24 Unknown History
diltiazem HCl 180 mg 180 mg PO BID 02/25/24 02/25/24 02/25/24 History
capsule,extended release 24 hr
gabapentin 100 mg capsule 100 mg PO HSPRN PRN sleep 02/25/24 02/25/24 Unknown History
gabapentin 100 mg capsule 200 mg PO HS 02/25/24 02/25/24 02/24/24 History
vancomycin 125 mg capsule 125 mg PO DAILY 02/25/24 02/25/24 02/25/24 History
Active Medications
Generic Name Dose Route Start Last Admin
Trade Name Freq PRN Reason Stop Dose Admin
Acetaminophen 650 mg 02/26/24 01:45
Acetaminophen 325 Mg Tablet PO 03/24/24 15:32
Q4HPRN PRN
if temp > 101 F or mild pain
Albuterol/Ipratropium 3 ml 02/25/24 15:33
Ipratropium 0.5/Albuterol 3 Mg (3 Ml Ampul) INH
R Q4HPRN PRN
shortness of breath/wheeze
Protocol
Albuterol/Ipratropium 3 ml 02/25/24 16:00 02/26/24 07:41
Ipratropium 0.5/Albuterol 3 Mg (3 Ml Ampul) INH Not Given
R QID JOSE ANTONIO
Protocol
Apixaban 5 mg 02/25/24 20:00 02/26/24 08:10
Apixaban (Eliquis) 5 Mg Tablet PO 03/24/24 19:59 5 mg
BID JOSE ANTONIO Administration
Atorvastatin Calcium 10 mg 02/26/24 08:00 02/26/24 08:10
Atorvastatin (Lipitor) 10 Mg Tablet PO 03/25/24 07:59 10 mg
DAILY JOSE ANTONIO Administration
Azithromycin 500 mg 02/26/24 08:00 02/26/24 08:10
Azithromycin 250 Mg Tablet PO 500 mg
DAILY JOSE ANTONIO Administration
Budesonide 0.5 mg 02/25/24 20:00 02/26/24 07:41
Budesonide (Pulmicort Respules) 0.5 Mg/2 Ml INH Not Given
R BID JOSE ANTONIO
Protocol
Cefepime HCl 1,000 mg 02/25/24 20:00 02/26/24 08:10
Cefepime Hcl 1,000 Mg/11.3 Ml Vial IV 1,000 mg
Q6H JOSE ANTONIO Administration
Diltiazem HCl 180 mg 02/25/24 20:00 02/26/24 08:10
Diltiazem 180 Mg Extended Release (24 H) Capsule PO 03/24/24 19:59 180 mg
BID JOSE ANTONIO Administration
Gabapentin 200 mg 02/25/24 22:00 02/25/24 20:26
Gabapentin 100 Mg Capsule PO 03/24/24 21:59 200 mg
HS JOSE ANTONIO Administration
Guaifenesin 600 mg 02/25/24 20:00 02/26/24 08:10
Guaifenesin 600 Mg Extended Release Tablet PO 03/24/24 19:59 600 mg
Q12 JOSE ANTONIO Administration
Hydromorphone HCl 0.5 mg 02/26/24 01:44 02/26/24 01:54
Hydromorphone 0.5 Mg/0.5 Ml Syringe IV 03/11/24 01:43 0.5 mg
Q4HPRN PRN Administration
moderate to severe pain
Sodium Chloride 1,000 mls @ 60 mls/hr 02/25/24 15:33 02/26/24 08:11
Nss IV 1,000 mls
[id number] JOSE ANTONIO Administration
Sodium Chloride 0 flush 02/25/24 21:00
Sodium Chloride 0.9% (Flush) Syringe IV 03/24/24 20:59
PER PROTOCOL JOSE ANTONIO
Sterile Water 10 ml 02/25/24 20:00 02/26/24 08:11
Sterile Water For Injection 10 Ml Vial IV 03/24/24 19:59 10 ml
Q6H JOSE ANTONIO Administration
Review of Systems
-
ROS notable for HPI, otherwise negative
Physical Exam
-
General: No Apparent Distress and Conversant
HEENT: Moist Mucous Membranes; Negative Jaundice
Cardiology: S1 and S2
Pulmonary: Rhonchi
GI: Soft
Extremities: Pulses Present; Negative Edema
Neurology: Non Focal
Skin: Warm
Psych: Calm
Labs
Lab Results
WBC 25.5 10^3/uL (4.8-10.8) H 02/26/24 05:28
RBC 2.25 10^6/uL (4.70-6.10) L 02/26/24 05:28
Hgb 7.7 g/dL (13.0-18.0) L 02/26/24 05:28
Hct 23.6 % (39.0-52.0) L 02/26/24 05:28
MCV 104.9 fL (80.0-94.0) H 02/26/24 05:28
MCH 34.2 pg (27.0-31.0) H 02/26/24 05:28
MCHC 32.6 g/dL (33.0-37.0) L 02/26/24 05:28
RDW 23.7 % (11.5-14.5) H 02/26/24 05:28
Plt Count 124 10^3/uL (130-400) L 02/26/24 05:28
MPV 9.9 fL (7.4-10.4) 02/26/24 05:28
Abs Immat Gran (auto) 1.4 10^3/uL (0-0.05) H 02/25/24 10:07
Absolute Neuts (auto) 26.2 10^3/uL (1.4-6.5) H 02/25/24 10:07
Absolute Lymphs (auto) 0.9 10^3/uL (1.2-3.4) L 02/25/24 10:07
Absolute Monos (auto) 0.5 10^3/uL (0.1-0.6) 02/25/24 10:07
Absolute Eos (auto) 0.0 10^3/uL (0-0.7) 02/25/24 10:07
Absolute Basos (auto) 0.2 10^3/uL (0-0.2) 02/25/24 10:07
Immature Gran % 4.7 % (0-0.5) H 02/25/24 10:07
Neutrophils % 89.8 % (42.2-75.2) H 02/25/24 10:07
Lymphocytes % 3.2 % (20.5-51.1) L 02/25/24 10:07
Monocytes % 1.6 % (1.7-9.3) L 02/25/24 10:07
Eosinophils % 0.0 % (0-6) 02/25/24 10:07
Basophils % 0.7 % (0-2) 02/25/24 10:07
Creatinine 0.4 mg/dL (0.7-1.3) L 02/26/24 05:28
Vital Signs
Vital Signs
Temp Pulse Resp BP Pulse Ox
98 F 92 20 114/58 94
02/26/24 08:01 02/26/24 08:10 02/26/24 08:01 02/26/24 08:10 02/26/24 08:01
--- NOTE | 2024-02-26 11:00 | WOUNDNOTE ---
RIGHT POSTERIOR HIP
--- NOTE | 2024-02-26 11:06 | WOUNDNOTE ---
[facility] RN note: Patient admitted with SOB
See H&P for complete history.
PMH: Non-small cell lung cancer, COPD, AFib,
Wound Location and type/assessment: Patient admitted with stage 3 PI that he states he has had for a few months. He was following at [facility] and states knowledge of understanding of off-loading sacrum. Some slough as well as some pink tissue noted
in the wound bed. He also appears to have a healed and scabbed stage 2 PI over bony prominence of right hip. Adhesive foam newly applied to bilateral elbows. Patient is on a static air overlay that is properly inflated. Patient reports good
understanding of keeping heels off-loaded with pillows under calves.
Appetite: Reports poor recently with new onset of increased SOB
Plan: Medihoney to sacral wound and silicone foam to bony prominences of posterior hip. Patient agreeable to all wound care after pain meds. GLENN Schmid made aware. Wound care supplies at bedside. Will confirm orders with hospitalist. Will follow
peripherally.
Note to case management of equipment requested for discharge:
Recommend follow up at wound care center upon discharge.
[2024-02-26 11:36] LABS: Reticulocyte Count 3.4 % (0.4-2.8)
[2024-02-26 11:57] LABS: Iron 41 ug/dl (49-181); LDH 325 U/L (120-246)
[2024-02-26 12:07] LABS: Percent Saturation 23 % (20-50); Total Iron Binding Capacity 176 ug/dl (261-462)
--- NOTE | 2024-02-26 12:10 | W.PN.PUL3 ---
Today's Communication / Plan
-
Not feeling better today, remains on O2, chills/no fever
Abx IV ongoing, cultures pending
Will repeat CXR in AM to evaluate progress
Add on vest, IS/acapella
Change nebs to PRN as he has been declining
Assessment
-
Patient is a 63-year-old male with previous history of non-small cell lung cancer, COPD, paroxysmal atrial fibrillation presenting to ER with increased cough and shortness of breath. He does feel he had concurrent fever and chills at home.
Chest imaging demonstrating opacities suggesting pneumonia. He has been undergoing chemotherapy for the past 3 months and tolerating. He has a port in place. O2 jyotsna 89% on room air, placed on supplemental O2. No prior history of O2 needs.
Admitted for IV antibiotics for presumed pneumonia. We are consulted for eval.
Presumed PNA
Chills
SOB/Cough
Opacities on CT suggesting PNA
Anemia
Leukocytosis
Thrombocytopenia
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
Squamous cell carcinoma-lung primary
Left upper lobe mass incidental finding on CAT scan 10/14/2023 s/p recent bronchoscopy 10/24/23
[place] positive for malignancy
Likely encasing pulmonary artery and upper airway bronchus
Moderate COPD- spirometry with moderate airflow obstruction FEV1 1.63 L of 53% of predicted on 10/16/2023; DLCO 59%
Emphysema lung
6 min walk testing today 10/16/2023: No oxygen desaturation.patient has significant tachycardia up to 148. Dyspnea sensation 03/26
on Trelegy
AFib
Daily alcohol use: 4-5 beers a day
80+ pack history of smoking, ongoing
Plan
O2 jyotsna 89% on room air, he is placed on low-dose supplemental O2
Has not required O2 in the past
Eventually will need home O2 eval
CT imaging reviewed demonstrating possible opacities representing pneumonia
This would coincide with his leukocytosis, subjective chills on admission
Agree with IV antibiotics, empirically
Can check sputum culture if able--pending
Had been receiving chemotherapy for the past 3 months [address] reports disease response and treatment with overall decrease in size and volume of left upper lobe mass
Disease progression and/or drug-induced lung injury less likely--but can be considered
Repeat CXR in AM
Can continue airway clearance
PT OT, IS, Acapella--add on vest
Nebulizers 4 times daily, change to PRN he has been declining
Known to [facility], recent PET scan reviewed as well
Currently treatment is likely to be on hold
He has a port in place
Discussed importance of tobacco cessation, abstinence from alcohol
He has remained smoke-free since October
Continue smoking cessation
Reviewed with primary service, patient
We will follow
Diagnostic Data
CT Chest 02/25/24- Overall decrease in size/volume of known left upper lobe malignancy which extends to and involves the left anterior chest wall and left hilum (although increased FDG uptake on recent PET scan February 19, 2024). Significant
progression of widespread bilateral interstitial and alveolar opacities, now most prominent in the left lower lobe in comparison to most recent prior PET scan. Although findings may be inflammatory/infectious, bilateral spread of malignancy is also
possible. No findings to confirm CENTRAL pulmonary embolism with evaluation of the some of the more peripheral pulmonary artery branches limited, especially in the left upper lobe, as noted above. Findings suspicious for progression of mediastinal
lymphadenopathy. Cannot exclude new small volume right hilar lymphadenopathy.
10/22/23- 1. Again seen is a large mass within the left hilum and medial left upper lobe compatible with a primary lung cancer with associated invasion of the mediastinum and anterior chest wall. This mass encases and significantly narrows the left
main point artery and occludes the left upper lobe bronchus and narrows left lower lobe bronchus. Compared to the prior CT, there is new irregular airspace consolidation within the central aspect of the inferior left upper lobe suspicious for post
obstructive pneumonia. 2. No evidence for pleural embolism.
PET/CT 02/19/24- There is decreased size of the lesion involving the left upper lobe extending into the left hilum/mediastinum as well as involving the anterior chest wall. There is however increased associated hypermetabolic activity with a max SUV
of 37.6, previously 27.1.
There is a new hypermetabolic focus within the lingula which demonstrates a max SUV of 8.2.
There is an opacity within the right upper lung which appears new from prior and demonstrates central cavitation and has a max SUV of 3.0. There are additional smaller or less opacities within the lower lateral right lower lung with mild
hypermetabolic activity with a max SUV of 2.1 (series 4 image 103). There are multiple new nodules within the left lower lobe which measure up to 6 mm and demonstrate a max SUV of 1.6 (series 4 image 97).
Mild centrilobular emphysematous changes. Right chest wall port with catheter tip terminating in the superior vena cava, unchanged. There is mild atherosclerotic calcifications of the thoracic aorta.
ECHO 10/16/23- Left ventricular ejection fraction is 60-65%, by visual assessment. Normal regional wall motion. Normal right ventricular size and function. Trace tricuspid regurgitation. Estimated pulmonary artery pressure of 25-30 mmHg. No prior
study available for comparison.
Total time spent on this encounter __51__ minutes which includes review of history, physical exam, medications, laboratory data, personal review of imaging, extensive review of outpatient records, discussion with care team and respiratory therapy.
Subjective Data
-
Date of Service:
Date of Service: February 26, 2024
Chief Complaint: Pulmonary Follow Up
Subjective:
Not feeling better, but no worse
Still diaphoretic, clammy
SOB, has been refusing nebs
Objective Data
Data Reviewed
Vital Signs / I&O / Oxygen:
Vital Signs
Temp Pulse Resp BP Pulse Ox
98.1 F 97 20 119/55 96
02/26/24 11:47 02/26/24 11:47 02/26/24 11:47 02/26/24 11:47 02/26/24 11:47
Intake and Output
02/25/24 02/26/24 02/27/24
06:59 06:59 06:59
Intake Total 360 / 360
Output Total 455 / 455
Balance -95 / -95
SaO2 96
Nasal Cannula flow liters per 3
minute
Physical Exam
General: Chills, Sweats, Poor Appetite and Other (ill appearing)
HEENT: Normocephalic, Anicteric and Moist Mucous Membranes
Cardiovascular: S1-S2 and Regular Rhythm
Respiratory: Crackles and Non-Labored Respirations
GI: Soft, Non Distended and Non Tender
Neurology: Awake, Alert, Oriented, No Motor Deficits and Depressed
Skin: Warm and Dry
Labs/Micro/Reports
Lab Data
02/26/24 05:28
02/26/24 05:28
Microbiology
02/26/24 00:43 Sputum Gram Stain - Preliminary
02/26/24 00:43 Urine Legionella Urinary Antigen - Final
Negative for Legionella pneumophila Serogroup 1 antigen.
A negative result does not rule out the possiblity of
Legionella infection due to other serogroups or species of
Legionella. Clinical correlation is recommended.
02/26/24 00:43 Urine Streptococcus pneumoniae Antigen (M - Final
Negative for Streptococcus pneumoniae antigen.
A negative result does not exclude infection with
Streptococcus pneumoniae. Clinical correlation is
recommended.
02/25/24 10:07 Nasal Swab Influenza Types A & B (CELINA) - Final
Negative for Influenza A & B, NAAT
Negative results must be combined with clinical observations
and patient history.
Nucleic Acid Amplification test (NAAT)performed on the
[employer] platform.
--- NOTE | 2024-02-26 12:20 | PTCARENOTE ---
At approx 1025 pt went into a-fib, confirmed with EKG. MD made aware and stat dose of cardizem ordered. THe pt converted back to NSR so Stat dose was canceled per MD. Pt has been comfortable in hospital bed. NO distress. Vitals 107/58, 90, 20resp.
[2024-02-26 13:10] LABS: Folate 19.7 ng/ml (2.76-20); Vitamin B12 > 1000 pg/ml (239-931)
[2024-02-26] MEDS: VITAMIN B1 100 MG PO ×2 (14:11→20:14)
[2024-02-26] MEDS: KCL 40 MEQ PO (14:11)
[2024-02-26] MEDS: MIRALAX 17 GRAMS PO (14:11)
[2024-02-26] MEDS: PROTONIX 40 MG PO (14:11)
--- NOTE | 2024-02-26 15:23 | CM ---
Alert awake oriented patient who lives with his SO Ciera who lives in a 2 story home with 2 step to enter and 10 steps to bed and bathroom. He is assisted in all activities of daily living.He will need PT OT for dc planning. Pt on new oxygen .
No VN hx / No SNF history
Pharmacy [facility]
PCP DR Contreras
PLAN Will need PT OT for dc planning . Watch for oxygen needs
--- NOTE | 2024-02-26 16:08 | W.PN.HOSP.TC ---
Today's Communication/Plan
-
He is refusing nebulizer treatments
As needed diltiazem ordered
Continue antibiotics
Acapella
Mucolytics
Repeat chest x-ray tomorrow
Assessment / Plan
Assessment / Plan
63-year-old male with history of non-small cell lung cancer with invasion to the mediastinum and left chest wall presented with shortness of breath and cough.
ECHO 10/16/23- Left ventricular ejection fraction is 60-65%, by visual assessment. Normal regional wall motion. Normal right ventricular size and function. Trace tricuspid regurgitation. Estimated pulmonary artery pressure of 25-30 mmHg. No prior
study available for comparison.
CT chest-overall decrease in size/volume of the left upper lobe malignancy progression of widespread bilateral interstitial and alveolar opacities more in the LLL. No findings of central PE peripheral branches limited. Progression of mediastinal
lymphadenopathy
CVS: S1-S2 normal
Chest: Diminished breath sounds bilateral bases
Abdomen: Soft, NT / Bowel sounds present
Extremities: No edema, normal pulses
TOBACCO BUYER: Non focal exam
# Pneumonia-He was started on Medrol Dosepak and Augmentin and p.o. vancomycin prophylaxis on 03/05/2024 by oncology after it was noted to have hypermetabolic activity on a PET scan in the lingula and right upper lobe.
Continue cefepime and Zithromax
Mucolytic's
Sputum cultures
Patient absolutely refusing nebulizer treatments therefore discontinued. Benefits discussed with the patient.
Strep and Legionella negative
Blood cultures negative so far
COVID and influenza negative
Pulmonary consulted and following
Vest and Acapella added
Rpt CXR in am
# Acute hypoxic respiratory insufficiency secondary to pneumonia-wean oxygen as tolerated. Currently on 3 L
# Thrombocytopenia/Anemia likely secondary to chemotherapy-follow and transfuse as needed. Venofer for iron deficiency
# Hypokalemia-replace
# Locally advanced non-small cell lung cancer-squamous cell-diagnosed in October 2023.
Left upper lobe mass incidental finding on CAT scan 10/14/2023 s/p bronchoscopy 10/24/23
Was started on carboplatin and Taxol and Pembrolizumab in November 2023
Completed 3 cycles last 1 was 02/13/2024 with G-CSF.
He also had his fourth dose of Keytruda 02/05/2024.
PET scan 02/19/2024 showed decreased in size of the left upper lobe lesion but increase in the activity and also a new hypermetabolic consolidation within the lingula and right upper lobe.(Infection versus mets)
Oncology following
# Abnormal urinalysis-repeat
# Paroxysmal atrial fibrillation-continue Eliquis and diltiazem, patient went into A-fib briefly and then back to sinus rhythm now. Continue meds. As needed diltiazem for sustaining heart rates over 110. This is likely triggered by his hypoxia.
Echo with normal EF in October
# COPD-continue Trelegy or equivalent
# Hyperlipidemia-continue statin
# Anxiety
# Smoker-quit October 2023
# Drinks of alcohol every day- 4-5 beers a day - Add thiamine. watch for withdrawal.
# Hypoalbuminemia
# DVT prophylaxis-Eliquis
# Full code
D/W RN
Anticipated Discharge: > 48 hours
Subjective/Interval History
-
Date of Service: February 26, 2024
Objective Data
-
Labs:
Laboratory Results
02/26/24
05:28
WBC 25.5 H
Hgb 7.7 L
Hct 23.6 L
Plt Count 124 L
Sodium 139
Potassium 3.3 L
Chloride 104
Carbon Dioxide 28
BUN 23 H
Creatinine 0.4 L
Glucose 75
Calcium 8.1 L
Vital Signs:
Vital Signs
Temp Pulse Resp BP Pulse Ox
98.1 F 97 20 119/55 96
02/26/24 11:47 02/26/24 11:47 02/26/24 11:47 02/26/24 11:47 02/26/24 11:47
I&O
02/25/24 02/26/24 02/27/24
06:59 06:59 06:59
Intake Total 360 / 360
Output Total 455 / 455
Balance -95 / -95
[2024-02-26] MEDS: TYLENOL 650 MG PO (20:14)
[2024-02-26] MEDS: SENOKOT PO (20:14)
[2024-02-26] MEDS: NEURONTIN 200 MG PO (20:19)
[2024-02-26] MEDS: CARDIZEM 5 MG IV (20:37)
[2024-02-26] MEDS: CARDIZEM CD PO (23:10)
[2024-02-26] MEDS: NSS 250 IV (23:46)
[2024-02-27] VITALS (7 sets, daily range): BP systolic 100–114; BP diastolic 56–80; PULSE 92; O2SAT 95
[2024-02-27] MEDS: STERILE WATER FOR INJECTION 10 ML IV ×4 (01:00→21:22)
[2024-02-27] MEDS: MAXIPIME 1000 MG IV ×4 (01:03→21:21)
[2024-02-27] MEDS: DILAUDID 0.5 MG IV ×3 (01:13→11:39)
[2024-02-27 01:18] LABS: Urine Albumin Trace (Neg - Trace); Urine Bilirubin Negative (Negative); Urine Character Slightly Cloudy (Clear); Urine Color Amber; Urine Glucose Negative (Negative); Urine Ketone Trace (Negative); Urine Leukocyte Trace (Negative); Urine Nitrite Negative (Negative); Urine Occult Blood 4+ (Negative); Urine Specific Gravity 1.025 (<1.030); Urine Urobilinogen Negative (Neg - 1+)
[2024-02-27 01:31] LABS: Urine Amorphous Seen; Urine Mucus Many; Urine Squamous Cell >30 /LPF (Few)
[2024-02-27 01:33] LABS: Urine Bacteria Many (Negative); Urine Calcium Oxalate Crystals Seen; Urine Red Blood Cell >100 /HPF (0-2)
[2024-02-27 01:36] LABS: Urine Hyaline Cast SEEN /LPF (0-2)
[2024-02-27 06:00] LABS: Hematocrit 24.5 % (39.0-52.0); Hemoglobin 7.8 g/dL (13.0-18.0); Mean Corp Hgb Conc. 31.8 g/dL (33.0-37.0); Mean Corpuscular Hgb 33.6 pg (27.0-31.0); Mean Corpuscular Volume 105.6 fL (80.0-94.0); Mean Platelet Volume 9.5 fL (7.4-10.4); Platelet Count 158 10^3/uL (130-400); Red Blood Cell Count 2.32 10^6/uL (4.70-6.10); Red Cell Dist. Width 23.2 % (11.5-14.5); White Blood Cell Count 25.5 10^3/uL (4.8-10.8)
[2024-02-27 06:01] LABS: Blood Urea Nitrogen 19 mg/dl (9-20); Carbon Dioxide 27 mmol/L (22-30); Chloride 106 mmol/L (98-107); Estimated Creatinine Clearance 109 ml/min; Glucose 98 mg/dl (70-99); Potassium 3.5 mmol/L (3.5-5.1); Sodium 141 mmol/L (135-145); eGFR > 60.00
[2024-02-27] MEDS: KCL 40 MEQ PO (08:29)
[2024-02-27] MEDS: SENOKOT PO ×2 (08:30→21:21)
[2024-02-27] MEDS: ZITHROMAX 500 MG PO (08:30)
[2024-02-27] MEDS: MUCINEX 600 MG PO ×2 (08:30→21:21)
[2024-02-27] MEDS: VITAMIN B1 100 MG PO ×2 (08:30→21:22)
[2024-02-27] MEDS: PROTONIX 40 MG PO (08:30)
[2024-02-27] MEDS: MIRALAX PO (08:30)
[2024-02-27] MEDS: CARDIZEM CD PO ×2 (08:30→21:20)
[2024-02-27] MEDS: LIPITOR 10 MG PO (08:31)
[2024-02-27] MEDS: ELIQUIS 5 MG PO ×2 (08:31→21:20)
--- NOTE | 2024-02-27 10:18 | PN.CDI ---
CDI
- -
CDI:
Physician Documentation Request
Admit Date: 02/25/24 14:11
Dear Doctor Anabel,
Clinical Indicators:
Patient admitted with Pneumonia; PMH includes non small cell lung cancer, currently undergoing chemotherapy.
02/24 Pulmonary consult, 'He does feel he had concurrent fever and chills at home.
02/25 Oncology consult, 'leukocytosis GCSF, Steroids, +/- infection'
WBC trend:
02/25/24 02/26/24 02/27/24
10:07 05:28 05:23
WBC 29.1 H 25.5 H 25.5 H
HR/RR trend on admission:
02/25/24
09:04 02/25/24
09:23 02/25/24
09:30
Pulse 91 106 95
Resp Rate 16 32 29
02/25/24
09:45 02/25/24
10:45 02/25/24
11:45
Pulse 90 95 92
Resp Rate 26 26 24
Please clarify which of the following most accurately describes the status of the patient's infection:
Sepsis, POA
- Systemic manifestations of infection, with 2 or more SIRS criteria which include:
- Fever >100.4 degrees F or hypothermia < 96.8 degrees F
- Leukocytosis - WBC > 12,000 or leukopenia - WBC < 4,000 or > 10% bands
- Tachycardia > 90 beats per minute
- Tachypnea - RR > 20 breaths per minute or PaCO2 , 32mmHg
Source: Merck Manual 2013
Pneumonia Only, Without Systemic Illness
Other
Use of terms such as suspected, likely, concern for, or probable (associated with a specific diagnosis that is being evaluated, monitored, or treated as if it exists) are acceptable and can be coded in the inpatient setting, when documented at the
time of discharge.
Thank you,
Velia Howard RN BSN
CDI Specialist
available via tiger text
Please use your independent medical judgment in providing your response.
--- NOTE | 2024-02-27 10:25 | W.PN.PUL3 ---
Today's Communication / Plan
-
Doing relatively well, still has pain, lidocaine patch
IV abx ongoing, add on IV steroids given CXR progression
ID consult, + annemarie in sputum (immunosx patient)
Continue aiway clearance, nebs/vest
Encouraged OOB, IS
Assessment
-
Patient is a 63-year-old male with previous history of non-small cell lung cancer, COPD, paroxysmal atrial fibrillation presenting to ER with increased cough and shortness of breath. He does feel he had concurrent fever and chills at home.
Chest imaging demonstrating opacities suggesting pneumonia. He has been undergoing chemotherapy for the past 3 months and tolerating. He has a port in place. O2 yjotsna 89% on room air, placed on supplemental O2. No prior history of O2 needs.
Admitted for IV antibiotics for presumed pneumonia. We are consulted for eval.
Presumed PNA
Chills
SOB/Cough
Opacities on CT suggesting PNA
Anemia
Leukocytosis
Thrombocytopenia
Conditions present [employer]NA[employer]
Squamous cell carcinoma-lung primary
Left upper lobe mass incidental finding on CAT scan 10/14/2023 s/p recent bronchoscopy 10/24/23
[place] positive for malignancy
Likely encasing pulmonary artery and upper airway bronchus
Moderate COPD- spirometry with moderate airflow obstruction FEV1 1.63 L of 53% of predicted on 10/16/2023; DLCO 59%
Emphysema lung
6 min walk testing today 10/16/2023: No oxygen desaturation.patient has significant tachycardia up to 148. Dyspnea sensation 03/26
on Trelegy
AFib
Daily alcohol use: 4-5 beers a day
80+ pack history of smoking, ongoing
Plan
O2 jyotsna 89% on room air, he is placed on low-dose supplemental O2
Has not required O2 in the past
Eventually will need home O2 eval
CT imaging reviewed demonstrating possible opacities representing pneumonia
This would coincide with his leukocytosis, subjective chills on admission
Agree with IV antibiotics, empirically
Can check sputum culture if able--annemarie +
Generally not pathogenic, but patient is immunocompromised
ID consulted
Had been receiving chemotherapy for the past 3 months and [address]
CT reports disease response and treatment with overall decrease in size and volume of left upper lobe mass
Disease progression and/or drug-induced lung injury less likely--but can be considered
Repeat CXR in AM showing slight progression, follow clinically
Added IV steroids
Can continue airway clearance
PT OT, IS, Acapella-continue vest
Nebulizers 4 times daily, change to PRN he has been declining
Known to [facility], recent PET scan reviewed as well
Currently treatment is likely to be on hold
He has a port in place
Discussed importance of tobacco cessation, abstinence from alcohol
He has remained smoke-free since October
Continue smoking cessation
Reviewed with primary service, patient
Diagnostic Data
CT Chest 02/25/24- Overall decrease in size/volume of known left upper lobe malignancy which extends to and involves the left anterior chest wall and left hilum (although increased FDG uptake on recent PET scan February 19, 2024). Significant
progression of widespread bilateral interstitial and alveolar opacities, now most prominent in the left lower lobe in comparison to most recent prior PET scan. Although findings may be inflammatory/infectious, bilateral spread of malignancy is also
possible. No findings to confirm CENTRAL pulmonary embolism with evaluation of the some of the more peripheral pulmonary artery branches limited, especially in the left upper lobe, as noted above. Findings suspicious for progression of mediastinal
lymphadenopathy. Cannot exclude new small volume right hilar lymphadenopathy.
10/22/23- 1. Again seen is a large mass within the left hilum and medial left upper lobe compatible with a primary lung cancer with associated invasion of the mediastinum and anterior chest wall. This mass encases and significantly narrows the left
main point artery and occludes the left upper lobe bronchus and narrows left lower lobe bronchus. Compared to the prior CT, there is new irregular airspace consolidation within the central aspect of the inferior left upper lobe suspicious for post
obstructive pneumonia. 2. No evidence for pleural embolism.
PET/CT 02/19/24- There is decreased size of the lesion involving the left upper lobe extending into the left hilum/mediastinum as well as involving the anterior chest wall. There is however increased associated hypermetabolic activity with a max SUV
of 37.6, previously 27.1.
There is a new hypermetabolic focus within the lingula which demonstrates a max SUV of 8.2.
There is an opacity within the right upper lung which appears new from prior and demonstrates central cavitation and has a max SUV of 3.0. There are additional smaller or less opacities within the lower lateral right lower lung with mild
hypermetabolic activity with a max SUV of 2.1 (series 4 image 103). There are multiple new nodules within the left lower lobe which measure up to 6 mm and demonstrate a max SUV of 1.6 (series 4 image 97).
Mild centrilobular emphysematous changes. Right chest wall port with catheter tip terminating in the superior vena cava, unchanged. There is mild atherosclerotic calcifications of the thoracic aorta.
ECHO 10/16/23- Left ventricular ejection fraction is 60-65%, by visual assessment. Normal regional wall motion. Normal right ventricular size and function. Trace tricuspid regurgitation. Estimated pulmonary artery pressure of 25-30 mmHg. No prior
study available for comparison.
Total time spent on this encounter __51__ minutes which includes review of history, physical exam, medications, laboratory data, personal review of imaging, extensive review of outpatient records, discussion with care team and respiratory therapy.
Subjective Data
-
Date of Service:
Date of Service: February 27, 2024
Chief Complaint: Pulmonary Follow Up
Subjective:
No new complaints, feels he is tolerating his treatments
Less SOB
Still has ongoing pain on his R rib/sternal area despite pain meds
Objective Data
Data Reviewed
Vital Signs / I&O / Oxygen:
Vital Signs
Temp Pulse Resp BP Pulse Ox
98.2 F 90 18 100/60 96
02/27/24 07:30 02/27/24 08:30 02/27/24 07:30 02/27/24 08:30 02/27/24 07:30
Intake and Output
02/26/24 02/27/24 02/28/24
06:59 06:59 06:59
Intake Total 360 / 360 1200 / 1200
Output Total 455 / 455 510 / 510
Balance -95 / -95 690 / 690
SaO2 96
Nasal Cannula flow liters per 2
minute
Physical Exam
General: Pain, Chills, Sweats, Poor Appetite and Other (ill appearing)
HEENT: Normocephalic, Anicteric and Moist Mucous Membranes
Cardiovascular: S1-S2 and Regular Rhythm
Respiratory: Crackles and Non-Labored Respirations
GI: Soft, Non Distended and Non Tender
Neurology: Awake, Alert, Oriented, No Motor Deficits and Depressed
Skin: Warm and Dry
Labs/Micro/Reports
Lab Data
02/27/24 05:23
02/27/24 05:23
Microbiology
02/26/24 00:45 Urine Urine Culture - Final
NO GROWTH
02/26/24 00:43 Sputum Respiratory Culture - Preliminary
Annemarie albicans
02/26/24 00:43 Sputum Gram Stain - Preliminary
02/25/24 12:52 Blood/Venous Blood Culture - Preliminary
No Growth in 24 hours- Final report to follow
02/25/24 12:52 Blood/Venous Blood Culture - Preliminary
No Growth in 24 hours- Final report to follow
02/26/24 00:43 Urine Legionella Urinary Antigen - Final
Negative for Legionella pneumophila Serogroup 1 antigen.
A negative result does not rule out the possiblity of
Legionella infection due to other serogroups or species of
Legionella. Clinical correlation is recommended.
02/26/24 00:43 Urine Streptococcus pneumoniae Antigen (M - Final
Negative for Streptococcus pneumoniae antigen.
A negative result does not exclude infection with
Streptococcus pneumoniae. Clinical correlation is
recommended.
02/25/24 10:07 Nasal Swab Influenza Types A & B (CELINA) - Final
Negative for Influenza A & B, NAAT
Negative results must be combined with clinical observations
and patient history.
Nucleic Acid Amplification test (NAAT)performed on the
[employer] platform.
[2024-02-27] MEDS: DECADRON 4 MG IV (10:48)
--- NOTE | 2024-02-27 11:18 | W.PN.HOSP.TC ---
Addendum entered and electronically signed by Lupe Little MD 02/27/24 14:16:
# Right Hip, healed Stage 2 Pressure Injury, POA
# Coccyx Stage 3 Pressure Injury, POA
Original Note:
Today's Communication/Plan
-
see A/P
Assessment / Plan
Assessment / Plan
HPI: 63-year-old male with history of non-small cell lung cancer with invasion to the mediastinum and left chest wall; presented with shortness of breath and cough.
ECHO 10/16/23- Left ventricular ejection fraction is 60-65%, by visual assessment. Normal regional wall motion. Normal right ventricular size and function. Trace tricuspid regurgitation. Estimated pulmonary artery pressure of 25-30 mmHg. No prior
study available for comparison.
CT chest-overall decrease in size/volume of the left upper lobe malignancy progression of widespread bilateral interstitial and alveolar opacities more in the LLL. No findings of central PE peripheral branches limited. Progression of mediastinal
lymphadenopathy
A/P:
# sepsis POA presumed 2/2 CAP with BL pneumonia
# R sided chest pain worse with cough 2/2 CAP
He was started on Medrol Dosepak and Augmentin and p.o. vancomycin prophylaxis on 03/05/2024 by oncology after noting hypermetabolic activity on PET scan in the lingula and right upper lobe.
Procal 0.8
Continue cefepime and Zithromax
Mucolytic's
Sputum culture growing Janette (contaminant per ID)- will get ID CS due to immune compromised state
Patient now willing to try neb with levalbuterol (declined nebs due to tachycardia). Ordered levalbuterol and Atrovent TID
Strep and Legionella negative, Blood cultures negative, COVID and influenza negative
Vest and Acapella added
Pulmonary following
ID CS
# Acute hypoxic respiratory insufficiency secondary to pneumonia
Placed on 2L NC, wean oxygen as tolerated.
# Thrombocytopenia/Anemia likely secondary to chemotherapy
follow and transfuse as needed.
Venofer for iron deficiency
# Hypokalemia
replace
# Locally advanced non-small cell lung cancer-squamous cell-diagnosed in October 2023.
Left upper lobe mass incidental finding on CAT scan 10/14/2023 s/p bronchoscopy 10/24/23
Was started on carboplatin and Taxol and Pembrolizumab in November 2023
Completed 3 cycles last 1 was 02/13/2024 with G-CSF.
He also had his fourth dose of Keytruda 02/05/2024.
PET scan 02/19/2024 showed decreased in size of the left upper lobe lesion but increase in the activity and also a new hypermetabolic consolidation within the lingula and right upper lobe.(Infection versus mets)
Oncology following
# Abnormal urinalysis but urine culture no growth
Pt already on broad spectrum cefepime for CAP
# Paroxysmal atrial fibrillation
patient went into A-fib briefly and then back to sinus rhythm now, likely triggered by hypoxia.
continue Eliquis and diltiazem and as needed diltiazem for sustaining heart rates over 110.
Echo with normal EF in October
# COPD
continue Trelegy or equivalent
# Hyperlipidemia
continue statin
# Anxiety
# Smoker-quit October 2023
# Drinks of alcohol every day- 4-5 beers a day - Add thiamine. watch for withdrawal.
# Hypoalbuminemia
DVT prophylaxis-Eliquis
Full code
D/W RN
DW at bedside
total time spent 51 min
Anticipated Discharge: > 48 hours
Subjective/Interval History
-
Date of Service: February 27, 2024
Objective Data
-
Labs:
Laboratory Results
02/27/24
05:23
WBC 25.5 H
Hgb 7.8 L
Hct 24.5 L
Plt Count 158 D
Sodium 141
Potassium 3.5
Chloride 106
Carbon Dioxide 27
BUN 19
Creatinine 0.4 L
Glucose 98
Calcium 8.0 L
Vital Signs:
Vital Signs
Temp Pulse Resp BP Pulse Ox
36.8 C 90 18 100/60 96
02/27/24 07:30 02/27/24 08:30 02/27/24 07:30 02/27/24 08:30 02/27/24 08:00
I&O
02/26/24 02/27/24 02/28/24
06:59 06:59 06:59
Intake Total 360 / 360 1200 / 1200
Output Total 455 / 455 510 / 510
Balance -95 / -95 690 / 690
Review of Systems
-
Respiratory: Reports Cough and Other (R sided chest pain worse with cough )
Physical Exam
-
General: Well Developed, Well Nourished, Comfortable, Conversant and Appears Chronically Ill
HEENT: Oxygen (2L NC)
Respiratory: Clear to Auscultation and Crackles
Cardiac: S1/S2 and Irregular Rhythm; Negative Murmur, Rub or Gallop
GI: Soft, Nontender and Nondistended
Musculoskeletal: No Edema
Neuro: AO x 3
Psych: Calm and Intact Judgement/Insight
Data Reviewed
-
Diagnostic Radiology: Report Reviewed by me
Labs: Labs Reviewed by me
--- NOTE | 2024-02-27 11:32 | CON.ID ---
Consultation
-
Date/Time Consultation Requested: February 27, 2024 1125
Date/Time Consultation Performed: February 27, 2024 1130
Requesting Provider: Dr. Lupe Little
Performing Provider: Dr. Funmilayo Martínez
Reason for Consultation: Janette in sputum
Chief Complaint / Past History
Chief Complaint
Cough and SOB
History of Present Illness
63 year old male with hx COPD, NSC lung cancer diagnosed 10/24/23 completed 3 cycles of carbo/taxol with GCSF on 02/12, and 4th cycle of Keytruda who developed cough and SOB Tuesday 02/20. Cough productive of barker sputum. + subjective fevers and
chills. 02/23 his Oncologist prescribed Augmentin ER 1000mg bid along with Vancomycin 125mg po qd for C. diff prophylaxis (even though pt never had C. difficile infection). Steroid also prescribed but told not to start until We 02/24. Pt took the
antibiotics with worsening symptoms. He therefore came to ED 02/24. HE was hypoxic. Chest CT showed significant progression of widespread bilateral interstitial and alveolar opacities. He is currently on cefepime and azithromycin without
improvement. Denies ill-contact.
Past History
Additional Past Medical History:
non-small cell lung cancer diagnosed October 2023, s/p 3rd cycle carbo/Taxol completed 02/12, currently on Keytruda
COPD
hypertension
paroxysmal Afib
Allergy History:
No Known Allergies Allergy (Verified 02/25/24 09:08)
Medications Reviewed: Yes
Current Antibiotics:
cefepime day 3
azithromycin day 3
Social History
Tobacco: Former Smoker ( more than 80 pack years, quit December 2023)
Alcohol: Occasional ( 4 beers daily)
Drug: None
Family History
Family History: Not Pertinent
Review of Systems
Review of Systems
General: Fever, Chills and Change in Appetite
HEENT: Negative Sinus Problems, Headache or Pharyngitis
Cardiovascular: Chest Pain (right side pain)
Respiratory: Dyspnea, Cough and Sputum Production
Gasteroenterology: Negative Nausea, Vomiting or Diarrhea
Genital / Urological: Negative Dysuria or Flank Pain
Endocrine: Weakness
Skin / Hair / Nails: Negative Rash
Neurological: Negative Headache or Dizziness
All systems: All other systems were reviewed and were negative
Vital Signs
Temp Pulse Resp BP Pulse Ox
98.2 F 90 18 100/60 96
02/27/24 07:30 02/27/24 08:30 02/27/24 07:30 02/27/24 08:30 02/27/24 08:00
Physical Exam
Physical Exam
Constitutional: No Acute Distress
Eyes: No Conjunctival Hemorrhage and Sclera Anicteric
Pharynx: Negative Erythema
Oral: Negative No Thrush
Cardiovascular: Regular Rate
Pulmonary: Coarse (Crackles left >R)
Gastrointestinal: Soft, Non Tender, Non Distended and Normal Bowel Sounds
Genito-Urinary: Negative CVA Tenderness
Extremities: Negative Edema
Neurological: AO x 3
Lines: Port (RCW no erythema)
Lab / Diagnostic Study Results
02/27/24 05:23
02/27/24 05:23
Abs Immat Gran (auto) 1.4 10^3/uL (0-0.05) H 02/25/24 10:07
Absolute Neuts (auto) 26.2 10^3/uL (1.4-6.5) H 02/25/24 10:07
Absolute Lymphs (auto) 0.9 10^3/uL (1.2-3.4) L 02/25/24 10:07
Absolute Monos (auto) 0.5 10^3/uL (0.1-0.6) 02/25/24 10:07
Absolute Basos (auto) 0.2 10^3/uL (0-0.2) 02/25/24 10:07
Immature Gran % 4.7 % (0-0.5) H 02/25/24 10:07
Neutrophils % 89.8 % (42.2-75.2) H 02/25/24 10:07
Lymphocytes % 3.2 % (20.5-51.1) L 02/25/24 10:07
Monocytes % 1.6 % (1.7-9.3) L 02/25/24 10:07
Eosinophils % 0.0 % (0-6) 02/25/24 10:07
Basophils % 0.7 % (0-2) 02/25/24 10:07
Procalcitonin 0.80 ng/ml (0.0-0.25) H 02/25/24 12:52
Urine WBC /HPF (0-5) 02/27/24 01:09
Ur Squamous Epith Cells >30 /LPF (Few) 02/27/24 01:09
Microbiology Results
Micro:
02/26/24 00:45 Urine Culture - Final
Urine NO GROWTH
02/26/24 00:43 Respiratory Culture - Preliminary
Sputum Janette albicans
Gram Stain - Preliminary
02/25/24 12:52 Blood Culture - Preliminary
Blood/Venous No Growth in 24 hours- Final report to follow
02/25/24 12:52 Blood Culture - Preliminary
Blood/Venous No Growth in 24 hours- Final report to follow
02/26/24 00:43 Legionella Urinary Antigen - Final
Urine Negative for Legionella pneumophila Serogroup 1 antigen.
A negative result does not rule out the possiblity of
Legionella infection due to other serogroups or species of
Legionella. Clinical correlation is recommended.
Streptococcus pneumoniae Antigen (M - Final
Negative for Streptococcus pneumoniae antigen.
A negative result does not exclude infection with
Streptococcus pneumoniae. Clinical correlation is
recommended.
02/25/24 10:07 Influenza Types A & B (CELINA) - Final
Nasal Swab Negative for Influenza A & B, NAAT
Negative results must be combined with clinical observations
and patient history.
Nucleic Acid Amplification test (NAAT)performed on the
[employer] platform.
02/25/[address]: Overall decrease in size/volume of known left upper lobe malignancy which extends to and involves the left anterior chest wall and left hilum (although increased FDG uptake on recent PET scan February 19, 2024). Significant
progression of widespread bilateral interstitial and alveolar opacities, now most prominent in the left lower lobe in comparison to most recent prior PET scan. Although findings may be inflammatory/infectious, bilateral spread of malignancy is also
possible. No findings to confirm CENTRAL pulmonary embolism with evaluation of the some of the more peripheral pulmonary artery branches limited, especially in the left upper lobe, as noted above. Findings suspicious for progression of mediastinal
lymphadenopathy. Cannot exclude new small volume right hilar lymphadenopathy.
02/27/24 CXR: Bilateral areas of opacification suspicious for pneumonia, likely slightly increased/progressed in the right lung.
Assessment / Plan
# Non-small lung ca on carb/taxol, Keytruda
# Widespread bilateral interstitial and alveolar opacities
# Cough/SOB
DDX: PNA (including post-obstructive PNA) vs Keytruda-induced pneumonitis (of note pt did not start the steroid outpatient) vs lymphangitic spread of lung cancer
-Agree with dexamethasone as per pulmonary
- Sputum Janette albicans -> non-significant
- Continue cefepime for now.
- Add metronidazole 500mg po bid.
- Replace Azithromycin with doxycycline 100 mg po bid.
# Leukocytosis
- Due to recent GCSF
# Conditions [employer]
non-small cell lung cancer diagnosed October 2023, s/p 3rd cycle carbo/Taxol completed 02/12, currently on Keytruda
COPD
hypertension
paroxysmal Afib
[2024-02-27] MEDS: TYLENOL 650 MG PO (11:38)
--- NOTE | 2024-02-27 11:47 | W.PN.ONC2 ---
Today's Communication / Plan
-
f/u hapto, corrie, heme stool
pulmonary following
optimize PS, encouraged OOB as tolerated & working with PT/OT
at bedside provided with updates
Impression
Impression
locally advanced non-small cell lung cancer with invasion of the mediastinum and the left chest, PET 02/18 decreased volume of disease however, increase SUV
progression of widespread bilateral interstitial and alveolar opacities
p/w SOB, cough that worsened on augmentin & medrol dose pack OP
suspected PNA on IVabx, sputum anenmarie albicans
acute on chronic anemia, baseline Hgb 10.5-11.5g/dL. Iron studies c/w AOCD, no B12 or folate deficiency
leukocytosis GCSF, Steroids, +/- infection
Plan
Plan
pulmonary following
on IV abx for suspected PNA
follow cultures
elev retic, LDH with normal LFTs, f/u haptoglobin, CORRIE
Subjective/Objective
Subjective
denies bleeding
feels to weak to get out of bed
Vital Signs:
Vital Signs
Temp Pulse Resp BP Pulse Ox
98.1 F 97 18 114/57 95
02/27/24 11:44 02/27/24 11:44 02/27/24 11:44 02/27/24 11:44 02/27/24 11:44
Lab Results:
Laboratory Data
WBC 25.5 10^3/uL (4.8-10.8) H 02/27/24 05:23
Hgb 7.8 g/dL (13.0-18.0) L 02/27/24 05:23
Plt Count 158 10^3/uL (130-400) D 02/27/24 05:23
eGFR > 60.00 02/27/24 05:23
Physical Exam
HEENT: Moist Mucous Membranes; No Jaundice
Cardiology: S1 and S2
Pulmonary: Other (diminished)
GI: Soft
Extremities: Pulses Present; No Edema
Neuro: Non Focal
Orders
Orders
Orders From Last 24 Hours
02/27/24 05:23
Type And Crossmatch [Type+Screen] IN AM
--- NOTE | 2024-02-27 12:48 | PN.CDI ---
CDI
- -
CDI:
Physician Documentation Request
Admit Date: 02/25/24 14:11
Dear Doctor Anabel,
Clinical Indicators:
Patient admitted with sepsis due to pneumonia.
02/25 [facility] RN skin/wound assessment: Right Hip, healed Stage 2 Pressure Injury, POA
Coccyx Stage 3 Pressure Injury, POA
Treatment: Medihoney to sacral wounds and silicone foam dressing to right hip.
Physician documentation of the type and location of wounds is required for compliant documentation. Based on the above clinical findings and your assessment, please provide the following in your progress note:
1. Location of the ulcer/wound, including laterality.
2. Type (etiology) of ulcer/wound:
- Pressure (decubitus) ulcer
- Other
3. If a pressure ulcer, please also include the stage* of the ulcer:
- Stage 1 - Skin intact, non-blanchable redness
- Stage 2 - Partial thickness loss of dermis, includes intact or open blister
- Stage 3 - Full thickness tissue not including bone, tendon or muscle
- Stage 4 - Full thickness tissue loss, including exposed bone, tendon or muscle
- Unstageable - Full thickness loss in which the base of the ulcer is covered by slough (yellow, barker, harris, green or brown) and/or eschar (barker, brown or black) in the wound bed.
- Unable to determine
Use of terms such as suspected, likely, concern for, or probable (associated with a specific diagnosis that is being evaluated, monitored, or treated as if it exists) are acceptable and can be coded in the inpatient setting, when documented at the
time of discharge.
Thank you,
Velia Howard RN BSN
CDI Specialist
available via tiger text
Please use your independent medical judgment in providing your response.
*Source: National Pressure Ulcer Advisory Panel (NPUAP)
[2024-02-27] MEDS: FLAGYL 500 MG PO ×2 (12:52→21:20)
[2024-02-27] MEDS: VIBRAMYCIN 100 MG PO ×2 (12:53→21:21)
[2024-02-27] MEDS: ATROVENT NEBULES 0.5 MG INH ×2 (13:28→20:41)
[2024-02-27] MEDS: XOPENEX 1.25 MG INHALANT SOLUTION INH ×2 (13:28→20:41)
--- NOTE | 2024-02-27 14:15 | VNURNOTE ---
Home Health Liaison met with patient and spouse at bedside to discuss [facility] nurse/therapy, visits, schedule and homebound status. Patient is agreeable and understands that visits at home will be 2-3 x per week to assess and teach medical management.
[facility] brochure provided with contact information. Patient is aware that [facility] will contact them for start of care in 1-2 days after discharge from .
[facility] referral completed in [facility].
[2024-02-27] MEDS: LIDOCAINE 4% PATCH 1 PATCH TOPICAL (15:48)
--- NOTE | 2024-02-27 16:43 | CM ---
PT OT eval indicate VN .
Pt requested [facility] Stephany S liaison set up VN .
Pt on new oxygen 2 liters Pox 96%.
will drive him home.
PLAN Home with VN . Watch for oxygen needs
[2024-02-27] MEDS: NEURONTIN 200 MG PO (21:26)
[2024-02-27] MEDS: DILAUDID 0.25 MG IV (21:34)
[2024-02-28] VITALS (7 sets, daily range): BP systolic 108–124; BP diastolic 56–74
[2024-02-28] MEDS: DECADRON 4 MG IV ×3 (02:54→22:55)
[2024-02-28] MEDS: MAXIPIME 1000 MG IV ×4 (02:55→21:00)
[2024-02-28] MEDS: STERILE WATER FOR INJECTION 10 ML IV ×4 (02:55→21:01)
[2024-02-28 05:39] LABS: Blood Urea Nitrogen 17 mg/dl (9-20); Calcium 8.4 mg/dl (8.4-10.2); Carbon Dioxide 28 mmol/L (22-30); Chloride 106 mmol/L (98-107); Estimated Creatinine Clearance 109 ml/min; Glucose 169 mg/dl (70-99); Magnesium 1.9 mg/dl (1.6-2.3); Potassium 4.3 mmol/L (3.5-5.1); Sodium 141 mmol/L (135-145); eGFR > 60.00
[2024-02-28 05:41] LABS: % Basophils 0.1 % (0-2); % Immature Granulocytes 3.5 % (0-0.5); % Lymphocytes 2.6 % (20.5-51.1); % Monocytes 1.4 % (1.7-9.3); % Neutrophils 92.4 % (42.2-75.2); Absolute Immature Granulocytes 1.1 10^3/uL (0-0.05); Absolute Lymphocytes 0.8 10^3/uL (1.2-3.4); Absolute Monocytes 0.4 10^3/uL (0.1-0.6); Absolute Neutrophils 27.9 10^3/uL (1.4-6.5); Hematocrit 24.5 % (39.0-52.0); Hemoglobin 7.9 g/dL (13.0-18.0); Mean Corp Hgb Conc. 32.2 g/dL (33.0-37.0); Mean Corpuscular Hgb 33.9 pg (27.0-31.0); Mean Corpuscular Volume 105.2 fL (80.0-94.0); Mean Platelet Volume 9.7 fL (7.4-10.4); Nucleated Red Blood Cells % 0.1 % (-); Platelet Count 223 10^3/uL (130-400); Red Blood Cell Count 2.33 10^6/uL (4.70-6.10); Red Cell Dist. Width 22.6 % (11.5-14.5); White Blood Cell Count 30.2 10^3/uL (4.8-10.8)
[2024-02-28] MEDS: DILAUDID 0.25 MG IV ×2 (06:03→21:02)
[2024-02-28 06:20] LABS: Haptoglobin 569 mg/dL (30-200)
[2024-02-28] MEDS: ATROVENT NEBULES 0.5 MG INH (07:56)
[2024-02-28] MEDS: XOPENEX 1.25 MG INHALANT SOLUTION INH ×3 (07:56→21:18)
--- NOTE | 2024-02-28 08:58 | PTCARENOTE ---
pt aox3, c/o right pleural/chest pain, patient states that pain is not new. sob at rest and with exertion. 02 2l. resting, call woods in reach
[2024-02-28] MEDS: VITAMIN B1 100 MG PO ×2 (09:02→21:01)
[2024-02-28] MEDS: CARDIZEM CD 180 MG PO ×2 (09:02→21:10)
[2024-02-28] MEDS: VIBRAMYCIN 100 MG PO ×2 (09:02→21:01)
[2024-02-28] MEDS: LIDOCAINE 4% PATCH 1 PATCH TOPICAL (09:02)
[2024-02-28] MEDS: ELIQUIS 5 MG PO ×2 (09:02→21:00)
[2024-02-28] MEDS: FLAGYL 500 MG PO ×2 (09:02→21:00)
[2024-02-28] MEDS: LIPITOR 10 MG PO (09:03)
[2024-02-28] MEDS: PROTONIX 40 MG PO (09:03)
[2024-02-28] MEDS: SENOKOT 17.2 MG PO (09:03)
[2024-02-28] MEDS: MUCINEX 600 MG PO ×2 (09:03→21:01)
[2024-02-28] MEDS: MIRALAX PO (09:05)
--- NOTE | 2024-02-28 09:32 | W.PN.HOSP.TC ---
Today's Communication/Plan
-
see A/P
Assessment / Plan
Assessment / Plan
HPI: 63-year-old male with history of non-small cell lung cancer with invasion to the mediastinum and left chest wall; presented with shortness of breath and cough.
ECHO 10/16/23- Left ventricular ejection fraction is 60-65%, by visual assessment. Normal regional wall motion. Normal right ventricular size and function. Trace tricuspid regurgitation. Estimated pulmonary artery pressure of 25-30 mmHg. No prior
study available for comparison.
CT chest-overall decrease in size/volume of the left upper lobe malignancy progression of widespread bilateral interstitial and alveolar opacities more in the LLL. No findings of central PE peripheral branches limited. Progression of mediastinal
lymphadenopathy
A/P:
# sepsis POA presumed 2/2 CAP with BL pneumonia
# R sided chest pain worse with cough 2/2 CAP
He was started on Medrol Dosepak and Augmentin and p.o. vancomycin prophylaxis on 03/05/2024 by oncology after noting hypermetabolic activity on PET scan in the lingula and right upper lobe.
Procal 0.8
Continue cefepime, changed Zithromax to Doxycycline, added Flagyl per ID
Cont Mucolytic's
Sputum culture growing Janette (contaminant per ID)
Patient now willing to try neb with levalbuterol (declined nebs due to tachycardia). Ordered levalbuterol and Atrovent TID
Strep and Legionella negative, Blood cultures negative, COVID and influenza negative
Follow MRSA screen
Vest and Acapella added
Pulmonary following, ID on board
# Acute hypoxic respiratory insufficiency secondary to pneumonia
Placed on 2L NC, wean oxygen as tolerated. He is not on home O2.
# Thrombocytopenia/Anemia likely secondary to chemotherapy
follow and transfuse as needed.
Venofer for iron deficiency
# Hypokalemia
replace
# Locally advanced non-small cell lung cancer-squamous cell-diagnosed in October 2023.
Left upper lobe mass incidental finding on CAT scan 10/14/2023 s/p bronchoscopy 10/24/23
Was started on carboplatin and Taxol and Pembrolizumab in November 2023
Completed 3 cycles last 1 was 02/13/2024 with G-CSF.
He also had his fourth dose of Keytruda 02/05/2024.
PET scan 02/19/2024 showed decreased in size of the left upper lobe lesion but increase in the activity and also a new hypermetabolic consolidation within the lingula and right upper lobe (Infection versus mets)
Oncology following
# Abnormal urinalysis but urine culture no growth
Pt already on broad spectrum cefepime for CAP
# Paroxysmal atrial fibrillation
patient went into A-fib briefly and then back to sinus rhythm now, likely triggered by hypoxia.
continue Eliquis and diltiazem and as needed diltiazem for sustaining heart rates over 110.
Echo with normal EF in October
# COPD
continue Trelegy or equivalent
# Hyperlipidemia
continue statin
# Anxiety
# Smoker-quit October 2023
# Drinks of alcohol every day- 4-5 beers a day - Add thiamine. watch for withdrawal.
# Hypoalbuminemia
DVT prophylaxis-Eliquis
Full code
D/W RN
DW at bedside
Anticipated Discharge: 24 - 48 hours
Subjective/Interval History
-
Date of Service: February 28, 2024
Objective Data
-
Labs:
Laboratory Results
02/28/24
04:56
WBC 30.2 H
Hgb 7.9 L
Hct 24.5 L
Plt Count 223 D
Sodium 141
Potassium 4.3
Chloride 106
Carbon Dioxide 28
BUN 17
Creatinine 0.4 L
Glucose 169 H
Calcium 8.4
Vital Signs:
Vital Signs
Temp Pulse Resp BP Pulse Ox
36.5 C 92 16 122/64 98
02/28/24 07:00 02/28/24 08:05 02/28/24 08:05 02/28/24 07:00 02/28/24 08:05
I&O
02/27/24 02/28/24 02/29/24
06:59 06:59 06:59
Intake Total 1200 / 1200 600 / 600
Output Total 510 / 510 300 / 300
Balance 690 / 690 300 / 300
Review of Systems
-
Respiratory: Reports Cough and Other (R sided chest pain worse with cough )
Physical Exam
-
General: Well Developed, Well Nourished, Comfortable, Conversant and Appears Chronically Ill
HEENT: Oxygen (2L NC)
Respiratory: Clear to Auscultation and Crackles
Cardiac: Regular Rhythm and S1/S2; Negative Murmur, Rub or Gallop
GI: Soft, Nontender and Nondistended
Musculoskeletal: No Edema
Neuro: AO x 3
Psych: Calm and Intact Judgement/Insight
Data Reviewed
-
Diagnostic Radiology: Report Reviewed by me
Labs: Labs Reviewed by me
[2024-02-28] MEDS: TYLENOL 650 MG PO (10:12)
--- NOTE | 2024-02-28 13:38 | W.PN.ID1 ---
Date of Service
Date of Service: February 28, 2024
Today's Communication
Continue current abx's.
Assessment / Plan
# Non-small lung ca on carb/taxol, Keytruda
# Widespread bilateral interstitial and alveolar opacities
# Cough/SOB
DDX: PNA (including post-obstructive PNA) vs Keytruda-induced pneumonitis (of note pt did not start the steroid outpatient) vs lymphangitic spread of lung cancer
-Agree with dexamethasone as per pulmonary
Symptoms quickly improved on steroid suggestive of pneumonitis.
- Sputum Janette albicans -> non-significant
- Continue cefepime(d4), doxycycline (d2), and metronidazole (d2)
# Leukocytosis
- Due to recent GCSF and now steroid.
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
non-small cell lung cancer diagnosed October 2023, s/p 3rd cycle carbo/Taxol completed 02/12, currently on Keytruda
COPD
hypertension
paroxysmal Afib
Chief Complaint
-: Other (Cough, SOB)
Subjective / Review of Systems
Cough and SOB improved today.
Vital Signs / Physical Exam
Vital Signs
Vital Signs
Temp Pulse Resp BP Pulse Ox
98 F 98 16 121/74 99
02/28/24 11:25 02/28/24 11:25 02/28/24 11:25 02/28/24 11:25 02/28/24 11:25
Physical Exam
Constitutional: No Acute Distress and Comfortable
Cardiovascular: Regular Rate and S1/S2
Pulmonary: Coarse (crackles L>R)
Gastrointestinal: Soft, Non Tender, Non Distended and Normal Bowel Sounds
Extremities: Negative Edema
Neurological: AO x 3
Objective Data
Lab Data
Lab Results
02/28/24 04:56
02/28/24 04:56
Estimated Creat Clear 109 ml/min 02/28/24 04:56
Total Bilirubin 0.5 mg/dl (0.2-1.3) 02/25/24 10:07
AST 28 U/L (17-59) 02/25/24 10:07
ALT 38 U/L (0-50) 02/25/24 10:07
Alkaline Phosphatase 185 U/L (38-126) H 02/25/24 10:07
Most recent labs reviewed.
Micro Results:
02/25/24 12:52 Blood Culture - Preliminary
Blood/Venous No Growth in 72 hours- Final report to follow
02/25/24 12:52 Blood Culture - Preliminary
Blood/Venous No Growth in 72 hours- Final report to follow
02/26/24 00:43 Respiratory Culture - Final
Sputum Janette albicans
Gram Stain - Final
02/27/24 13:03 MRSA Screen - Pending
Nose
02/26/24 00:45 Urine Culture - Final
Urine NO GROWTH
02/26/24 00:43 Legionella Urinary Antigen - Final
Urine Negative for Legionella pneumophila Serogroup 1 antigen.
A negative result does not rule out the possiblity of
Legionella infection due to other serogroups or species of
Legionella. Clinical correlation is recommended.
Streptococcus pneumoniae Antigen (M - Final
Negative for Streptococcus pneumoniae antigen.
A negative result does not exclude infection with
Streptococcus pneumoniae. Clinical correlation is
recommended.
02/25/24 10:07 Influenza Types A & B (CELINA) - Final
Nasal Swab Negative for Influenza A & B, NAAT
Negative results must be combined with clinical observations
and patient history.
Nucleic Acid Amplification test (NAAT)performed on the
[employer] platform.
02/25/[address]: Overall decrease in size/volume of known left upper lobe malignancy which extends to and involves the left anterior chest wall and left hilum (although increased FDG uptake on recent PET scan February 19, 2024). Significant
progression of widespread bilateral interstitial and alveolar opacities, now most prominent in the left lower lobe in comparison to most recent prior PET scan. Although findings may be inflammatory/infectious, bilateral spread of malignancy is also
possible. No findings to confirm CENTRAL pulmonary embolism with evaluation of the some of the more peripheral pulmonary artery branches limited, especially in the left upper lobe, as noted above. Findings suspicious for progression of mediastinal
lymphadenopathy. Cannot exclude new small volume right hilar lymphadenopathy.
02/27/24 CXR: Bilateral areas of opacification suspicious for pneumonia, likely slightly increased/progressed in the right lung.
[2024-02-28] MEDS: ATROVENT NEBULES INH ×2 (13:59→21:18)
--- NOTE | 2024-02-28 14:21 | PTCARENOTE ---
pt oob to chair, washed up,ate, trial RA o2 sat 94%. pt with call woods in reach
--- NOTE | 2024-02-28 17:13 | W.PN.PUL3 ---
Today's Communication / Plan
-
Continue secretion clearance interventions
Oxygen supplementation
IV steroids
Antibiotics
Follow culture
Assessment
-
Patient is a 63-year-old male with previous history of non-small cell lung cancer, COPD, paroxysmal atrial fibrillation presenting to ER with increased cough and shortness of breath. He does feel he had concurrent fever and chills at home.
Chest imaging demonstrating opacities suggesting pneumonia. He has been undergoing chemotherapy for the past 3 months and tolerating. He has a port in place. O2 jyotsna 89% on room air, placed on supplemental O2. No prior history of O2 needs.
Admitted for IV antibiotics for presumed pneumonia. We are consulted for eval.
Presumed PNA
Chills
SOB/Cough
Opacities on CT suggesting PNA
Anemia
Leukocytosis
Thrombocytopenia
Conditions present [employer]
Squamous cell carcinoma-lung primary
Left upper lobe mass incidental finding on CAT scan 10/14/2023 s/p recent bronchoscopy 10/24/23
[place] positive for malignancy
Likely encasing pulmonary artery and upper airway bronchus
Moderate COPD- spirometry with moderate airflow obstruction FEV1 1.63 L of 53% of predicted on 10/16/2023; DLCO 59%
Emphysema lung
6 min walk testing today 10/16/2023: No oxygen desaturation.patient has significant tachycardia up to 148. Dyspnea sensation /10
on Trelegy
AFib
Daily alcohol use: 4-5 beers a day
80+ pack history of smoking, ongoing
Plan
From the pulmonary perspective continues to be congested and coughing.
Oxygen supplementation is stable at 2 L. New for him.
Clinically he seems to be responding.
During my evaluation of oxygen with adequate oxygenation.
-
CT imaging reviewed demonstrating possible opacities representing pneumonia-differential diagnosis also includes checkpoint inhibitor pneumonitis patient on Keytruda and also lymphangitic spread of the tumor.
This would coincide with his leukocytosis, subjective chills on admission
Continue with broad-spectrum antibiotics per infectious disease.
Can check sputum culture if able--janette +
Generally not pathogenic, but patient is immunocompromised-Observation.
All cultures negative so far
-
Had been receiving chemotherapy for the past 3 months and [address]
CT reports disease response and treatment with overall decrease in size and volume of left upper lobe mass
Disease progression and/or drug-induced lung injury less likely--but can be considered
-
Continue steroids for possible Keytruda induced pneumonitis.
Can continue airway clearance
PT OT, IS, Acapella-continue vest
Patient does not like nebulizers. Can use only as an as-needed basis.
Known to [facility], recent PET scan reviewed as well
Currently treatment is likely to be on hold
He has a port in place
Discussed importance of tobacco cessation, abstinence from alcohol
He has remained smoke-free since October
Continue smoking cessation
Reviewed with primary service, patient
-
updated by Dr. Myers over the phone.
Diagnostic Data
CT Chest 02/25/24- Overall decrease in size/volume of known left upper lobe malignancy which extends to and involves the left anterior chest wall and left hilum (although increased FDG uptake on recent PET scan February 19, 2024). Significant
progression of widespread bilateral interstitial and alveolar opacities, now most prominent in the left lower lobe in comparison to most recent prior PET scan. Although findings may be inflammatory/infectious, bilateral spread of malignancy is also
possible. No findings to confirm CENTRAL pulmonary embolism with evaluation of the some of the more peripheral pulmonary artery branches limited, especially in the left upper lobe, as noted above. Findings suspicious for progression of mediastinal
lymphadenopathy. Cannot exclude new small volume right hilar lymphadenopathy.
10/22/23- 1. Again seen is a large mass within the left hilum and medial left upper lobe compatible with a primary lung cancer with associated invasion of the mediastinum and anterior chest wall. This mass encases and significantly narrows the left
main point artery and occludes the left upper lobe bronchus and narrows left lower lobe bronchus. Compared to the prior CT, there is new irregular airspace consolidation within the central aspect of the inferior left upper lobe suspicious for post
obstructive pneumonia. 2. No evidence for pleural embolism.
PET/CT 02/19/24- There is decreased size of the lesion involving the left upper lobe extending into the left hilum/mediastinum as well as involving the anterior chest wall. There is however increased associated hypermetabolic activity with a max SUV
of 37.6, previously 27.1.
There is a new hypermetabolic focus within the lingula which demonstrates a max SUV of 8.2.
There is an opacity within the right upper lung which appears new from prior and demonstrates central cavitation and has a max SUV of 3.0. There are additional smaller or less opacities within the lower lateral right lower lung with mild
hypermetabolic activity with a max SUV of 2.1 (series 4 image 103). There are multiple new nodules within the left lower lobe which measure up to 6 mm and demonstrate a max SUV of 1.6 (series 4 image 97).
Mild centrilobular emphysematous changes. Right chest wall port with catheter tip terminating in the superior vena cava, unchanged. There is mild atherosclerotic calcifications of the thoracic aorta.
ECHO 10/16/23- Left ventricular ejection fraction is 60-65%, by visual assessment. Normal regional wall motion. Normal right ventricular size and function. Trace tricuspid regurgitation. Estimated pulmonary artery pressure of 25-30 mmHg. No prior
study available for comparison.
Total time spent on this encounter __51__ minutes which includes review of history, physical exam, medications, laboratory data, personal review of imaging, extensive review of outpatient records, discussion with care team and respiratory therapy.
Subjective Data
-
Date of Service:
Date of Service: February 28, 2024
Chief Complaint: Pulmonary Follow Up
Subjective:
Continues to report cough and congestion
Denies hemoptysis
Review of Systems
General: Fever (n)
GI: Abdominal Pain (n) and Nausea (n)
Neuro: Headache (n)
Objective Data
Data Reviewed
Vital Signs / I&O / Oxygen:
Vital Signs
Temp Pulse Resp BP Pulse Ox
97.8 F 80 16 108/62 96
02/28/24 15:00 02/28/24 15:00 02/28/24 15:00 02/28/24 15:00 02/28/24 15:00
Intake and Output
02/27/24 02/28/24 02/29/24
06:59 06:59 06:59
Intake Total 1200 / 1200 600 / 600
Output Total 510 / 510 300 / 300
Balance 690 / 690 300 / 300
SaO2 96
Nasal Cannula flow liters per 2
minute
Physical Exam
General: Pain, Chills, Sweats, Poor Appetite and Other (ill appearing)
HEENT: Normocephalic, Anicteric and Moist Mucous Membranes
Cardiovascular: S1-S2 and Regular Rhythm
Respiratory: Crackles and Non-Labored Respirations
GI: Soft, Non Distended and Non Tender
Neurology: Awake, Alert, Oriented, No Motor Deficits and Depressed
Skin: Warm and Dry
Labs/Micro/Reports
Lab Data
02/28/24 04:56
02/28/24 04:56
Microbiology
02/27/24 13:03 Nose MRSA Screen - Final
No Methicillin Resistant Staphylococcus aureus isolated.
02/25/24 12:52 Blood/Venous Blood Culture - Preliminary
No Growth in 72 hours- Final report to follow
02/25/24 12:52 Blood/Venous Blood Culture - Preliminary
No Growth in 72 hours- Final report to follow
02/26/24 00:43 Sputum Respiratory Culture - Final
Janette albicans
02/26/24 00:43 Sputum Gram Stain - Final
02/26/24 00:45 Urine Urine Culture - Final
NO GROWTH
02/26/24 00:43 Urine Legionella Urinary Antigen - Final
Negative for Legionella pneumophila Serogroup 1 antigen.
A negative result does not rule out the possiblity of
Legionella infection due to other serogroups or species of
Legionella. Clinical correlation is recommended.
02/26/24 00:43 Urine Streptococcus pneumoniae Antigen (M - Final
Negative for Streptococcus pneumoniae antigen.
A negative result does not exclude infection with
Streptococcus pneumoniae. Clinical correlation is
recommended.
[2024-02-28] MEDS: CARDIZEM 5 MG IV ×2 (20:57→21:25)
[2024-02-28] MEDS: CARDIZEM CD PO (21:00)
[2024-02-28] MEDS: MELATONIN 5 MG PO (21:01)
[2024-02-28] MEDS: SENOKOT PO (21:01)
[2024-02-28] MEDS: NEURONTIN 200 MG PO (21:02)
[2024-02-28] MEDS: LOPRESSOR 5 MG IV (21:46)
--- NOTE | 2024-02-28 23:00 | PTCARENOTE ---
Around 2100, pt. stood at bedside to use urinal- HR 170s sustaining. IV Cardizem given along with scheduled Cardizem. HR was still sustaining with no decrease. Notified ELECTRICAL FITTER- Cardizem IV given again with minimal response- ELECTRICAL FITTER ordered IV Lopressor,
again with minimal response. 2200 Pt HR remained in 140s- Cardizem drip ordered. At 2230 pt. HR went down before hanging Cardizem drip, into 70s/80s
[2024-02-29] MEDS: MAXIPIME 1000 MG IV ×3 (01:38→12:38)
[2024-02-29] MEDS: STERILE WATER FOR INJECTION 10 ML IV ×3 (01:38→12:38)
[2024-02-29] MEDS: DILAUDID 0.25 MG IV (01:38)
--- NOTE | 2024-02-29 02:09 | W.PN.UPDATE ---
Update Note
Progress Note Update
2100 HR elevated to 160-170s afib per RN. PRn iv cardizem given by RN. No real improvement so scheduled po cardizem given
2121 additonal 5mg cardizem iv given for HR continued in 150s.
214 HR continues in 140s. No response from cardizem iv. Lopressor 5mg iv given
2200 HR remains 140s. Pt slight anxious regarding HR. Added cardizem gtt for additional support. But as med was being verified by pharmacy and retrieved by RN, pt rhythm broke and returned to NSR 70s-80s. cardizem gtt never started.
[2024-02-29 07:00] VITALS: BP 105/46
[2024-02-29 07:36] LABS: Hematocrit 23.6 % (39.0-52.0); Hemoglobin 7.7 g/dL (13.0-18.0); Mean Corp Hgb Conc. 32.6 g/dL (33.0-37.0); Mean Corpuscular Hgb 33.6 pg (27.0-31.0); Mean Corpuscular Volume 103.1 fL (80.0-94.0); Mean Platelet Volume 9.6 fL (7.4-10.4); Platelet Count 249 10^3/uL (130-400); Red Blood Cell Count 2.29 10^6/uL (4.70-6.10); Red Cell Dist. Width 23.1 % (11.5-14.5); White Blood Cell Count 24.6 10^3/uL (4.8-10.8)
[2024-02-29] MEDS: XOPENEX 1.25 MG INHALANT SOLUTION INH ×2 (08:05→13:56)
[2024-02-29] MEDS: ATROVENT NEBULES INH ×2 (08:05→13:56)
[2024-02-29] MEDS: CARDIZEM CD PO (08:20)
[2024-02-29] MEDS: MUCINEX 600 MG PO (08:21)
[2024-02-29] MEDS: PROTONIX 40 MG PO (08:21)
[2024-02-29] MEDS: VITAMIN B1 100 MG PO (08:21)
[2024-02-29] MEDS: VIBRAMYCIN 100 MG PO (08:21)
[2024-02-29] MEDS: SENOKOT PO (08:21)
[2024-02-29] MEDS: MIRALAX PO (08:22)
[2024-02-29] MEDS: ELIQUIS 5 MG PO (08:22)
[2024-02-29] MEDS: FLAGYL 500 MG PO (08:22)
[2024-02-29] MEDS: LIPITOR 10 MG PO (08:22)
[2024-02-29] MEDS: LIDOCAINE 4% PATCH 1 PATCH TOPICAL (08:22)
[2024-02-29 08:46] LABS: Blood Urea Nitrogen 28 mg/dl (9-20); Calcium 8.7 mg/dl (8.4-10.2); Carbon Dioxide 30 mmol/L (22-30); Chloride 104 mmol/L (98-107); Estimated Creatinine Clearance 109 ml/min; Glucose 149 mg/dl (70-99); Potassium 4.2 mmol/L (3.5-5.1); Sodium 140 mmol/L (135-145); eGFR > 60.00
[2024-02-29 09:13] LABS: % Basophils 0.2 % (0-2); % Immature Granulocytes 3.8 % (0-0.5); % Lymphocytes 2.8 % (20.5-51.1); % Monocytes 2.2 % (1.7-9.3); Absolute Basophils 0.1 10^3/uL (0-0.2); Absolute Immature Granulocytes 0.9 10^3/uL (0-0.05); Absolute Lymphocytes 0.7 10^3/uL (1.2-3.4); Absolute Monocytes 0.5 10^3/uL (0.1-0.6); Absolute Neutrophils 22.4 10^3/uL (1.4-6.5); Nucleated Red Blood Cells % 0.1 % (-)
--- NOTE | 2024-02-29 09:58 | W.PN.HOSP.TC ---
Addendum entered and electronically signed by Lupe Little MD 02/29/24 14:59:
total DC time 38 min
Original Note:
Today's Communication/Plan
-
see A/P
Assessment / Plan
Assessment / Plan
HPI: 63-year-old male with history of non-small cell lung cancer with invasion to the mediastinum and left chest wall; presented with shortness of breath and cough.
ECHO 10/16/23- Left ventricular ejection fraction is 60-65%, by visual assessment. Normal regional wall motion. Normal right ventricular size and function. Trace tricuspid regurgitation. Estimated pulmonary artery pressure of 25-30 mmHg. No prior
study available for comparison.
CT chest-overall decrease in size/volume of the left upper lobe malignancy progression of widespread bilateral interstitial and alveolar opacities more in the LLL. No findings of central PE peripheral branches limited. Progression of mediastinal
lymphadenopathy
A/P:
# sepsis POA presumed 2/2 CAP with BL pneumonia
# R sided chest pain worse with cough 2/2 CAP
He was started on Medrol Dosepak and Augmentin and p.o. vancomycin prophylaxis on 03/05/2024 by oncology after noting hypermetabolic activity on PET scan in the lingula and right upper lobe.
Procal 0.8
IV cefepime, Doxycycline, Flagyl -> PO cefdinir, doxycycline, Flagyl for 5 more days (total 5 days)
Cont Mucolytic's
Sputum culture growing Janette (contaminant per ID)
Patient now willing to try neb with levalbuterol (declined nebs due to tachycardia). Ordered levalbuterol and Atrovent TID
Strep and Legionella negative, Blood cultures negative, COVID and influenza negative. MRSA screen negative
Vest and Acapella
Pulmonary following, ID on board
# Acute hypoxic respiratory insufficiency secondary to pneumonia, resolved
weaned from 2L NC to RA. He is not on home O2.
# Thrombocytopenia/Anemia likely secondary to chemotherapy
# Leucocytosis 2/2 recent GCSF and now steroid
follow and transfuse as needed.
Venofer for iron deficiency
# Hypokalemia
replaced
# Locally advanced non-small cell lung cancer-squamous cell-diagnosed in October 2023.
Left upper lobe mass incidental finding on CAT scan 10/14/2023 s/p bronchoscopy 10/24/23
Was started on carboplatin and Taxol and Pembrolizumab in November 2023
Completed 3 cycles last 1 was 02/13/2024 with G-CSF.
He also had his fourth dose of Keytruda 02/05/2024.
PET scan 02/19/2024 showed decreased in size of the left upper lobe lesion but increase in the activity and also a new hypermetabolic consolidation within the lingula and right upper lobe (Infection versus mets)
Oncology following
# Abnormal urinalysis but urine culture no growth
Pt already on broad spectrum cefepime for CAP
# Paroxysmal atrial fibrillation
patient went into A-fib briefly and then back to sinus rhythm now, likely triggered by hypoxia.
continue Eliquis and diltiazem and as needed diltiazem for sustaining heart rates over 110.
Echo with normal EF in October
# COPD
continue Trelegy or equivalent
# Hyperlipidemia
continue statin
# Anxiety
# Smoker-quit October 2023
# Drinks of alcohol every day- 4-5 beers a day - Add thiamine. watch for withdrawal.
# Hypoalbuminemia
DVT prophylaxis-Eliquis
Full code
D/W ID, Pulm. Both agreeable with discharge
Anticipated Discharge: Today
Subjective/Interval History
-
Date of Service: February 29, 2024
Objective Data
-
Labs:
Laboratory Results
02/29/24
07:24
WBC 24.6 H
Hgb 7.7 L
Hct 23.6 L
Plt Count 249
Sodium 140
Potassium 4.2
Chloride 104
Carbon Dioxide 30
BUN 28 H
Creatinine 0.5 L
Glucose 149 H
Calcium 8.7
Vital Signs:
Vital Signs
Temp Pulse Resp BP Pulse Ox
36.2 C 81 16 105/46 93
02/29/24 07:00 02/29/24 08:20 02/29/24 07:00 02/29/24 08:20 02/29/24 08:20
I&O
02/28/24 02/29/24 03/01/24
06:59 06:59 06:59
Intake Total 600 / 600 480 / 480
Output Total 300 / 300 800 / 800 100 / 100
Balance 300 / 300 -320 / -320 -100 / -100
Review of Systems
-
Respiratory: Reports Cough (improved) and Other (R sided chest pain worse with cough )
Physical Exam
-
General: Well Developed, Well Nourished, Comfortable and Conversant (in full sentences)
HEENT: Negative Oxygen
Respiratory: Clear to Auscultation and Crackles
Cardiac: Regular Rhythm and S1/S2; Negative Murmur, Rub or Gallop
GI: Soft, Nontender and Nondistended
Musculoskeletal: No Edema
Neuro: AO x 3
Psych: Calm and Intact Judgement/Insight
Data Reviewed
-
Diagnostic Radiology: Report Reviewed by me
Labs: Labs Reviewed by me
--- NOTE | 2024-02-29 10:21 | W.PN.ID1 ---
Date of Service
Date of Service: February 29, 2024
Today's Communication
DC home.
Assessment / Plan
# Non-small lung ca on carb/taxol, Keytruda
# Widespread bilateral interstitial and alveolar opacities
# Cough/SOB
- Likely Keytruda-induced pneumonitis
Symptoms responded quickly to steroid.
- Sputum Janette albicans -> non-significant
- Can dc home on empiric cefdinir 300mg po bid and doxycycline 100mg po bid x 5 more days.
# Leukocytosis - improved
- Due to recent GCSF and now steroid.
# Conditions [employer]
non-small cell lung cancer diagnosed October 2023, s/p 3rd cycle carbo/Taxol completed 02/12, currently on Keytruda
COPD
hypertension
paroxysmal Afib
Chief Complaint
-: Other (Cough, SOB)
Subjective / Review of Systems
Cough/SOB resolving
Vital Signs / Physical Exam
Vital Signs
Vital Signs
Temp Pulse Resp BP Pulse Ox
97.2 F 81 16 105/46 93
02/29/24 07:00 02/29/24 08:20 02/29/24 07:00 02/29/24 08:20 02/29/24 08:20
Physical Exam
Constitutional: No Acute Distress
Pulmonary: Clear; Negative Wheezes, Rales, Rhonchi or Coarse
Gastrointestinal: Soft, Non Tender and Non Distended
Neurological: AO x 3
Objective Data
Lab Data
Lab Results
02/29/24 07:24
02/29/24 07:24
Estimated Creat Clear 109 ml/min 02/29/24 07:24
Total Bilirubin 0.5 mg/dl (0.2-1.3) 02/25/24 10:07
AST 28 U/L (17-59) 02/25/24 10:07
ALT 38 U/L (0-50) 02/25/24 10:07
Alkaline Phosphatase 185 U/L (38-126) H 02/25/24 10:07
Most recent labs reviewed.
Micro Results:
02/27/24 13:03 MRSA Screen - Final
Nose No Methicillin Resistant Staphylococcus aureus isolated.
02/25/24 12:52 Blood Culture - Preliminary
Blood/Venous No Growth in 72 hours- Final report to follow
02/25/24 12:52 Blood Culture - Preliminary
Blood/Venous No Growth in 72 hours- Final report to follow
02/26/24 00:43 Respiratory Culture - Final
Sputum Janette albicans
Gram Stain - Final
02/26/24 00:45 Urine Culture - Final
Urine NO GROWTH
02/26/24 00:43 Legionella Urinary Antigen - Final
Urine Negative for Legionella pneumophila Serogroup 1 antigen.
A negative result does not rule out the possiblity of
Legionella infection due to other serogroups or species of
Legionella. Clinical correlation is recommended.
Streptococcus pneumoniae Antigen (M - Final
Negative for Streptococcus pneumoniae antigen.
A negative result does not exclude infection with
Streptococcus pneumoniae. Clinical correlation is
recommended.
02/25/24 10:07 Influenza Types A & B ([facility]) - Final
Nasal Swab Negative for Influenza A & B, NAAT
Negative results must be combined with clinical observations
and patient history.
Nucleic Acid Amplification test (NAAT)performed on the
[employer] platform.
02/25/[address]: Overall decrease in size/volume of known left upper lobe malignancy which extends to and involves the left anterior chest wall and left hilum (although increased FDG uptake on recent PET scan February 19, 2024). Significant
progression of widespread bilateral interstitial and alveolar opacities, now most prominent in the left lower lobe in comparison to most recent prior PET scan. Although findings may be inflammatory/infectious, bilateral spread of malignancy is also
possible. No findings to confirm CENTRAL pulmonary embolism with evaluation of the some of the more peripheral pulmonary artery branches limited, especially in the left upper lobe, as noted above. Findings suspicious for progression of mediastinal
lymphadenopathy. Cannot exclude new small volume right hilar lymphadenopathy.
02/27/24 CXR: Bilateral areas of opacification suspicious for pneumonia, likely slightly increased/progressed in the right lung.
Care Review
Plan reviewed with: Physician (Drs. Little and Justine)
[2024-02-29 11:32] VITALS: BP 123/59
[2024-02-29] MEDS: DECADRON 4 MG IV (12:33)
[2024-02-29] MEDS: FLUSH (NSS) 1 FLUSH IV (12:39)
--- NOTE | 2024-02-29 12:48 | CM ---
Chart reviewed. Pt is medically clear for d/c
[facility] referral prev completed. [facility] to arrange start of service
Per chart, will transport home
No further CM needs at this time
[facility]

Plan: Home w/ [facility]
--- NOTE | 2024-02-29 14:28 | W.DCSUMMARY ---
Discharge Summary
Discharge Data
Date of Admission: 02/25/24
Date of Discharge: 02/29/24
-
Pending Results: No
Hospital Course
Principal Diagnosis:
Sepsis due to community-acquired bilateral pneumonia
Acute hypoxic respiratory insufficiency secondary to pneumonia, resolved
Chronic Diagnoses:�
Locally advanced non-small cell lung cancer with invasion of the mediastinum and the left chest, diagnosed in October 2023.
Paroxysmal atrial fibrillation
COPD
Hyperlipidemia
Anxiety
Smoker-quit October 2023
Drinks of alcohol every day- 4-5 beers a day
Hypoalbuminemia
Consultations:�
Pulmonary
Infectious disease
Oncology
Procedures:�
None
Clinical course:�
This is a 63-year-old male with past medical history as stated above, who presented with shortness of breath and cough.
Problem 1:
Sepsis due to community-acquired bilateral pneumonia.
He was started on Medrol Dosepak and Augmentin and p.o. vancomycin prophylaxis on 03/05/2024 by oncology after noting hypermetabolic activity on PET scan in the lingula and right upper lobe.
His procalcitonin this admission was noted to be high at 0.8.
He was treated with IV antibiotic cefepime, Doxycycline, Flagyl while in the hospital, and he can continue with PO cefdinir, doxycycline, Flagyl for 5 more days (total 10 days course) following discharge.
He was also started with IV Decadron while in the hospital, and he can continue with prednisone taper following discharge.
Of note, his strep and Legionella were negative, blood cultures were negative, COVID and influenza were negative, and MRSA screen was negative.
He was followed by both pulmonary and ID for his community-acquired pneumonia in setting of immunocompromise state.
Problem 2:
Acute hypoxic respiratory insufficiency secondary to pneumonia, resolved.
He was weaned from 2 L nasal cannula back to room air.
Problem 3:
Thrombocytopenia/anemia likely secondary to chemotherapy.
Leucocytosis due to recent GCSF and now steroid.
As for the rest of his medical problems, they were stable during his hospital stay.
Discharge Plan
-
Patient Disposition: Home with Home Care
Discharge Diagnosis/Procedures: Sepsis on admission presumed due to community acquired pneumonia (bilateral pneumonia);
Paroxysmal atrial fibrillation;
Non-small cell lung cancer-squamous cell-diagnosed in October 2023.
Condition: Fair
Diet: As tolerated
Activity: As tolerated
Driving Restrictions: As prior to admission
Wound Care: Wound Care Instructions
Sacrum- Clean with normal saline or soap and water. Apply pea size amount of MEDIHONEY to wound and cover with adaptic and dry dressing. Change daily and PRN if loose or soiled.
Silicone border foam to bony prominences on elbows and hips. Assess daily and change dressing Q 3 days and PRN.
Follow up at wound care center call for an appointment.
Referrals:
oCrrie Contreras MD [Family Provider] - in less than 1 week
Additional Discharge Medication Instructions: Continue and complete antibiotics Cefdinir, doxycycline, Flaggy for 5 more days
Avoid dairy products (milk, cheese etc.) and sun exposure while on doxycycline
Continue prednisone taper
Prescriptions:
New
metronidazole 500 mg Tablet
500 mg PO BID 5 Days Qty: 10 0RF
guaifenesin 600 mg Tablet Extended Release 12hr
600 mg PO Q12 Qty: 30 0RF
doxycycline hyclate 100 mg Capsule
100 mg PO Q12 5 Days Qty: 10 0RF
cefdinir 300 mg capsule
300 mg PO Q12H 5 Days Qty: 10 0RF
prednisone 10 mg Tablet
See Rx Instructions .ROUTE .COMPLEX Qty: 30 0RF
Rx Instructions:
Take By Mouth:
40 mg daily x3 days, 30 mg daily x3 days,
20 mg daily x3 days, 10 mg daily x3 days.
Continued
atorvastatin 10 mg Tablet
10 mg PO DAILY
acetaminophen [Tylenol Extra Strength] 500 mg Tablet
1,000 mg PO Q6HPRN PRN (Reason: mild pain)
Trelegy Ellipta 200-62.5-25 mcg Blister With Device
1 inh INHALATION R DAILY
Eliquis 5 mg Tablet
5 mg PO BID Qty: 60 2RF
dexamethasone 4 mg Tablet
4 mg PO UD
Rx Instructions:
4mg night before chemo and 8mg the morning of chemo
gabapentin 100 mg Capsule
200 mg PO HS
gabapentin 100 mg Capsule
100 mg PO HSPRN PRN (Reason: sleep)
vancomycin 125 mg Capsule
125 mg PO DAILY
cholecalciferol (vitamin D3) [Vitamin D3] 50 mcg (2,000 unit) Tablet
50 mcg PO DAILY
diltiazem HCl 180 mg capsule,extended release 24hr
180 mg PO BID
Discontinued
amoxicillin-pot clavulanate 1,000-62.5 mg Tablet Extended Release 12 Hr
1 tab PO BID
Discharge Orders:
Discharge Patient (As Directed); Ordered 02/29/24
Ordered By: Lupe Little
Discharge Date and Time
Print Language: DOMINICAN
--- NOTE | 2024-02-29 14:37 | W.PN.PUL3 ---
Today's Communication / Plan
-
Discharge today
Antibiotics
Short course of Medrol
Follow-up with oncology
Assessment
-
Patient is a 63-year-old male with previous history of non-small cell lung cancer, COPD, paroxysmal atrial fibrillation presenting to ER with increased cough and shortness of breath. He does feel he had concurrent fever and chills at home.
Chest imaging demonstrating opacities suggesting pneumonia. He has been undergoing chemotherapy for the past 3 months and tolerating. He has a port in place. O2 jyotsna 89% on room air, placed on supplemental O2. No prior history of O2 needs.
Admitted for IV antibiotics for presumed pneumonia. We are consulted for eval.
Presumed PNA
Chills
SOB/Cough
Opacities on CT suggesting PNA
Anemia
Leukocytosis
Thrombocytopenia
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
Squamous cell carcinoma-lung primary
Left upper lobe mass incidental finding on CAT scan 10/14/2023 s/p recent bronchoscopy 10/24/23
[place] positive for malignancy
Likely encasing pulmonary artery and upper airway bronchus
Moderate COPD- spirometry with moderate airflow obstruction FEV1 1.63 L of 53% of predicted on 10/16/2023; DLCO 59%
Emphysema lung
6 min walk testing today 10/16/2023: No oxygen desaturation.patient has significant tachycardia up to 148. Dyspnea sensation 1/10
on Trelegy
AFib
Daily alcohol use: 4-5 beers a day
80+ pack history of smoking, ongoing
Plan
Clinically improved. Oxygen has been weaned off
Afebrile
Responded to current therapy
at the bedside: Differential diagnosis discussed.
Advised to keep in touch with oncologist regarding symptoms
Okay to discharge from my perspective.
-
CT imaging reviewed demonstrating possible opacities representing pneumonia-differential diagnosis also includes checkpoint inhibitor pneumonitis patient on Keytruda and also lymphangitic spread of the tumor.
This would coincide with his leukocytosis, subjective chills on admission
Continue with broad-spectrum antibiotics per infectious disease.
Can check sputum culture if able--janette +
Generally not pathogenic, but patient is immunocompromised-Observation.
All cultures negative so far
-
Had been receiving chemotherapy for the past 3 months and toler[address]
CT reports disease response and treatment with overall decrease in size and volume of left upper lobe mass
Disease progression and/or drug-induced lung injury less likely--but can be considered
-
Taper steroids in the next several days, for possible Keytruda induced pneumonitis. If there is rapid recurrence of symptoms/pneumonitis then prednisone will need to be prolonged and medication will need to be discontinued. Advised patient to
follow-up closely with oncology.
Can continue airway clearance
PT OT, IS, Acapella-continue vest
Patient does not like nebulizers. Can use only as an as-needed basis.
Known to [facility], recent PET scan reviewed as well
Currently treatment is likely to be on hold
He has a port in place
Discussed importance of tobacco cessation, abstinence from alcohol
He has remained smoke-free since October
Continue smoking cessation
Reviewed with primary service, patient
-
updated by Dr. Myers over the phone. 02/28/2024
updated at the bedside 02/29/[address] Myers[address]
Agree with discharge
Diagnostic Data
CT Chest 02/25/24- Overall decrease in size/volume of known left upper lobe malignancy which extends to and involves the left anterior chest wall and left hilum (although increased FDG uptake on recent PET scan February 19, 2024). Significant
progression of widespread bilateral interstitial and alveolar opacities, now most prominent in the left lower lobe in comparison to most recent prior PET scan. Although findings may be inflammatory/infectious, bilateral spread of malignancy is also
possible. No findings to confirm CENTRAL pulmonary embolism with evaluation of the some of the more peripheral pulmonary artery branches limited, especially in the left upper lobe, as noted above. Findings suspicious for progression of mediastinal
lymphadenopathy. Cannot exclude new small volume right hilar lymphadenopathy.
10/22/23- 1. Again seen is a large mass within the left hilum and medial left upper lobe compatible with a primary lung cancer with associated invasion of the mediastinum and anterior chest wall. This mass encases and significantly narrows the left
main point artery and occludes the left upper lobe bronchus and narrows left lower lobe bronchus. Compared to the prior CT, there is new irregular airspace consolidation within the central aspect of the inferior left upper lobe suspicious for post
obstructive pneumonia. 2. No evidence for pleural embolism.
PET/CT 02/19/24- There is decreased size of the lesion involving the left upper lobe extending into the left hilum/mediastinum as well as involving the anterior chest wall. There is however increased associated hypermetabolic activity with a max SUV
of 37.6, previously 27.1.
There is a new hypermetabolic focus within the lingula which demonstrates a max SUV of 8.2.
There is an opacity within the right upper lung which appears new from prior and demonstrates central cavitation and has a max SUV of 3.0. There are additional smaller or less opacities within the lower lateral right lower lung with mild
hypermetabolic activity with a max SUV of 2.1 (series 4 image 103). There are multiple new nodules within the left lower lobe which measure up to 6 mm and demonstrate a max SUV of 1.6 (series 4 image 97).
Mild centrilobular emphysematous changes. Right chest wall port with catheter tip terminating in the superior vena cava, unchanged. There is mild atherosclerotic calcifications of the thoracic aorta.
ECHO 10/16/23- Left ventricular ejection fraction is 60-65%, by visual assessment. Normal regional wall motion. Normal right ventricular size and function. Trace tricuspid regurgitation. Estimated pulmonary artery pressure of 25-30 mmHg. No prior
study available for comparison.
Total time spent on this encounter __51__ minutes which includes review of history, physical exam, medications, laboratory data, personal review of imaging, extensive review of outpatient records, discussion with care team and respiratory therapy.
Subjective Data
-
Date of Service:
Date of Service: February 29, 2024
Chief Complaint: Pulmonary Follow Up
Subjective:
Patient felt better
Oxygen has been weaned off
No significant hemoptysis
Denies any chest pain
Objective Data
Data Reviewed
Vital Signs / I&O / Oxygen:
Vital Signs
Temp Pulse Resp BP Pulse Ox
97.6 F 93 16 123/59 93
02/29/24 11:32 02/29/24 11:32 02/29/24 11:32 02/29/24 11:32 02/29/24 11:32
Intake and Output
02/28/24 02/29/24 03/01/24
06:59 06:59 06:59
Intake Total 600 / 600 480 / 480
Output Total 300 / 300 800 / 800 100 / 100
Balance 300 / 300 -320 / -320 -100 / -100
SaO2 93
Nasal Cannula flow liters per 2
minute
Physical Exam
General: Pain, Chills, Sweats, Poor Appetite and Other (ill appearing)
HEENT: Normocephalic, Anicteric and Moist Mucous Membranes
Cardiovascular: S1-S2 and Regular Rhythm
Respiratory: Crackles and Non-Labored Respirations
GI: Soft, Non Distended and Non Tender
Neurology: Awake, Alert, Oriented, No Motor Deficits and Depressed
Skin: Warm and Dry
Labs/Micro/Reports
Lab Data
02/29/24 07:24
02/29/24 07:24
Microbiology
02/25/24 12:52 Blood/Venous Blood Culture - Preliminary
No Growth in 4 days- Final report to follow
02/25/24 12:52 Blood/Venous Blood Culture - Preliminary
No Growth in 4 days- Final report to follow
02/27/24 13:03 Nose MRSA Screen - Final
No Methicillin Resistant Staphylococcus aureus isolated.
02/26/24 00:43 Sputum Respiratory Culture - Final
Jantete albicans
02/26/24 00:43 Sputum Gram Stain - Final
02/26/24 00:45 Urine Urine Culture - Final
NO GROWTH
== END 2024-02-29 14:39 | disposition home health service (06) | DRG 871 ==
LOC: 4 EAST ACU 14:11
PROVIDERS: Hospitalist; Nurse Practitioner Gerontology; Physician Assistant; Physician Assistant Medical; ADMITTING PHYSICIAN Student in an Organized Health Care Education/Training Program; ATTENDING PHYSICIAN Internal Medicine; CONSULT PHYSICIAN Internal Medicine; CONSULT PHYSICIAN Internal Medicine Infectious Disease; EMERGENCY PHYSICIAN Emergency Medicine; FAMILY PHYSICIAN Internal Medicine Critical Care Medicine; OTHER PHYSICIAN Internal Medicine Hematology & Oncology
DX: A41.9 Sepsis, unspecified organism (principal); J18.9 Pneumonia, unspecified organism; L89.153 Pressure ulcer of sacral region, stage 3; C34.90 Malignant neoplasm of unspecified part of unspecified bronchus or lung; D84.9 Immunodeficiency, unspecified; R06.02 Shortness of breath; J43.8 Other emphysema; R06.89 Other abnormalities of breathing; E78.5 Hyperlipidemia, unspecified; I48.0 Paroxysmal atrial fibrillation; F17.200 Nicotine dependence, unspecified, uncomplicated; R09.02 Hypoxemia; K59.00 Constipation, unspecified; F41.9 Anxiety disorder, unspecified; I10 Essential (primary) hypertension; F10.90 Alcohol use, unspecified, uncomplicated; I70.0 Atherosclerosis of aorta; E87.6 Hypokalemia; E88.09 Other disorders of plasma-protein metabolism, not elsewhere classified; R59.0 Localized enlarged lymph nodes; D64.81 Anemia due to antineoplastic chemotherapy; L89.212 Pressure ulcer of right hip, stage 2; D69.59 Other secondary thrombocytopenia; T45.1X5A Adverse effect of antineoplastic and immunosuppressive drugs, initial encounter; Y92.9 Unspecified place or not applicable; Z66 Do not resuscitate; Z11.52 Encounter for screening for COVID-19; Z92.21 Personal history of antineoplastic chemotherapy; Z79.51 Long term (current) use of inhaled steroids; Z79.01 Long term (current) use of anticoagulants; Z95.828 Presence of other vascular implants and grafts; Z80.0 Family history of malignant neoplasm of digestive organs
CPT/HCPCS: 71045; 71046; 71275; 80048; 80053; 81003; 81015; 82607; 82728; 82746; 83010; 83540; 83550; 83615; 83735; 83880; 84145; 84484; 85025; 85027; 85045; 85379; 86850; 86880; 86900; 86901; 87040; 87070; 87086; 87205; 87449; 87502; 87811; 87899; 93005; 94640; 94669; 96374; 96375; 97162; 97166; 99285; Q9967

== ENCOUNTER 2024-03-04 08:30 | Outpatient (RCR) | payer BC, SELFPAY ==
[2024-03-04] MEDS: TYLENOL 650 MG PO (09:16)
[2024-03-04 09:20] VITALS: BP 128/54
[2024-03-04 09:38] VITALS: BP 114/47
[2024-03-04 11:39] VITALS: BP 108/52
== END 2024-03-16 23:59 | disposition home or self-care (01) ==
LOC: OID 08:30
PROVIDERS: ATTENDING PHYSICIAN Internal Medicine Hematology & Oncology
DX: C34.12 Malignant neoplasm of upper lobe, left bronchus or lung (principal); Z87.891 Personal history of nicotine dependence
CPT/HCPCS: 36415; 36430; 86850; 86900; 86901; 86920; P9016

== ENCOUNTER → 2024-03-25 10:49 | Outpatient (REF) | payer BC, SELFPAY ==
[2024-03-25 09:05] LABS: % Basophils 0.3 % (0-2); % Eosinophils 0.9 % (0-6); % Immature Granulocytes 0.3 % (0-0.5); % Lymphocytes 9.9 % (20.5-51.1); % Monocytes 6.9 % (1.7-9.3); % Neutrophils 81.7 % (42.2-75.2); Absolute Eosinophils 0.1 10^3/uL (0-0.7); Absolute Lymphocytes 1.1 10^3/uL (1.2-3.4); Absolute Monocytes 0.8 10^3/uL (0.1-0.6); Hematocrit 37.6 % (39.0-52.0); Hemoglobin 11.5 g/dL (13.0-18.0); Mean Corp Hgb Conc. 30.6 g/dL (33.0-37.0); Mean Corpuscular Hgb 31.2 pg (27.0-31.0); Mean Corpuscular Volume 101.9 fL (80.0-94.0); Mean Platelet Volume 8.4 fL (7.4-10.4); Platelet Count 405 10^3/uL (130-400); Red Blood Cell Count 3.69 10^6/uL (4.70-6.10); Red Cell Dist. Width 17.5 % (11.5-14.5)
[2024-03-25 09:30] LABS: Blood Urea Nitrogen 8 mg/dl (9-20); Iron 33 ug/dl (49-181)
[2024-03-25 09:40] LABS: Percent Saturation 16 % (20-50); Total Iron Binding Capacity 196 ug/dl (261-462)
== END ==
LOC: OIDL 10:49
PROVIDERS: ATTENDING PHYSICIAN Internal Medicine Hematology & Oncology
DX: C34.12 Malignant neoplasm of upper lobe, left bronchus or lung (principal)
CPT/HCPCS: 82565; 82728; 83540; 83550; 84520; 85025

== ENCOUNTER → 2024-03-29 12:57 | Outpatient (REF) | payer BC, SELFPAY | LOC: RAD 12:57 | PROVIDERS: ATTENDING PHYSICIAN Internal Medicine Hematology & Oncology; FAMILY PHYSICIAN Nurse Practitioner Family | DX: C34.12 Malignant neoplasm of upper lobe, left bronchus or lung (principal); T88.7XXA Unspecified adverse effect of drug or medicament, initial encounter; T45.1X5A Adverse effect of antineoplastic and immunosuppressive drugs, initial encounter; D63.0 Anemia in neoplastic disease; D64.81 Anemia due to antineoplastic chemotherapy | CPT/HCPCS: 71260; 93005; Q9967 ==

== ENCOUNTER 2024-04-12 16:36 | Inpatient (IN) | payer BC, SELFPAY ==
[2024-04-12] VITALS (35 sets, daily range): BP systolic 66–124; BP diastolic 40–85; BMI 21.3
--- NOTE | 2024-04-12 14:23 | W.PN.UPDATE ---
Addendum entered and electronically signed by Marcelo Cuello MD 04/12/24 15:53:
Update (3:45PM): Patient remains in rapid A-fib with HR labile between 110�120s. Discussed case with cardiology and patient will be admitted with Cardizem drip and plan for ADAM with cardioversion. While admitted, would also recommend consult to IR
for a left-sided pleural effusion thoracentesis.
Original Note:
Update Note
Progress Note Update
Postprocedure, patient was in rapid A-fib with heart rate in the 120�140s. He did not take his Cardizem pill this morning. He appears asymptomatic and in no acute distress however SBP in the low 90s. His SBP at his last cardiology visit on
02/06/2024 was in the 120s. She denies chest pain, shortness of breath, WATT, or nausea. I advised to the patient/ for him to take his Cardizem pill now, and I will give him 5 mg IV Cardizem. I also reached out to cardiology and they will
evaluate him as well. He may need to be admitted overnight for observation. After cardiology evaluates the patient then we will make final disposition decision.
[2024-04-12] MEDS: CARDIZEM 5 MG IV (14:50)
--- NOTE | 2024-04-12 15:00 | CON.CAR ---
Addendum entered and electronically signed by Imer Lim MD 04/12/24 15:53:
I saw and examined the patient.
The GUYLINE OPERATOR's note was reviewed and I agree with the note.
Comment: 63 yo male with paroxysmal afib on Eliquis, HLD and metastatic lung cancer, who presented for an outpatient bronchoscopy today. During the procedure he went into rapid Afib/Aflutter at 130bpm, he admits to not taking his Diltiazem 180mg
this am (takes Diltiazem 180mg BID typically) and he has been holding Eliquis since Friday.
Unfortunately, he is back in AF RVR and has been off Eliquis.
- Dilt gtt
- ADAM DCCV tomorrow if no hemoptysis
- per pulm OK to start Eliquis tomorrow pending no hemoptysis
Original Note:
Consultation
Consultation Request
Date/Time Consultation Requested: 04/12/24 2:30p
Date/Time Consultation Performed: 04/12/24 2:45p
Requesting Provider: Dr. Cuello
Performing Provider: DEXTER Salmon for Dr. Lim
Reason for Consultation: rapid Afib
Medical History
-
Chief Complaint: outpatient bronchoscopy
History of Present Illness:
Mr. Lawrence is a 63 yo male with paroxysmal afib on Eliquis, HLD and metastatic lung cancer, who presented for an outpatient bronchoscopy today. During the procedure he went into rapid Afib/Aflutter at 130bpm, he admits to not taking his
Diltiazem 180mg this am (takes Diltiazem 180mg BID typically) and he has been holding Eliquis since Friday. He is asymptomatic and unaware of irregular heart rhythm. He was instructed by Dr. Cuello to take his home Diltiazem 180mg now in same
day services, rates in the 110-120s and given IV Diltiazem 5mg by the nurse in SDS.
Past Medical History
Past Medical History: Other (as above)
Past Surgical History: Other (bronchoscopy 10/2023)
Social History
Tobacco: Former Smoker (quit within last 4 months)
Personal:
Living: With Family
Family History
Family History: Reviewed & Not Pertinent
Allergies / Home Medications
Allergy/AdvReac Type Severity Reaction Status Date / Time
No Known Allergies Allergy Verified 04/12/24 08:38
�Medication �Instructions �Recorded �Confirmed �Type
acetaminophen 500 mg tablet 1,000 mg PO Q6HPRN PRN mild pain 10/22/23 04/12/24 History
(Tylenol Extra Strength)
atorvastatin 10 mg tablet 10 mg PO DAILY 10/22/23 04/12/24 History
fluticasone fur. 200 mcg-umeclid 1 inh inhalation R DAILY 10/22/23 04/12/24 History
62.5 mcg-vilant 25 mcg
inhalat.powder (Trelegy Ellipta)
apixaban 5 mg tablet (Eliquis) 5 mg PO BID #60 tabs 10/25/23 04/12/24 Rx
cholecalciferol (vitamin D3) 50 50 mcg PO DAILY 02/25/24 04/12/24 History
mcg (2,000 unit) tablet (Vitamin
D3)
dexamethasone 4 mg tablet 4 mg PO UD 02/25/24 04/12/24 History
diltiazem HCl 180 mg 180 mg PO BID 02/25/24 04/12/24 History
capsule,extended release 24 hr
gabapentin 100 mg capsule 100 mg PO HSPRN PRN sleep 02/25/24 04/12/24 History
gabapentin 100 mg capsule 200 mg PO HS 02/25/24 04/12/24 History
docusate sodium 50 mg capsule 50 mg PO DAILY 04/12/24 04/12/24 History
escitalopram oxalate 10 mg tablet 10 mg PO DAILY 04/12/24 04/12/24 History
levalbuterol tartrate 45 1 puff inhalation Q6H PRN SOB 04/12/24 04/12/24 History
mcg/actuation aerosol inhaler
ondansetron 8 mg disintegrating 8 mg PO Q12H PRN nausea 04/12/24 04/12/24 History
tablet
Review of Systems
-
History Source: Patient
All other systems: Negative unless noted
Physical Exam
Vital Signs
Temp Pulse Resp BP Pulse Ox
98.2 F 139 24 103/69 95
04/12/24 12:50 04/12/24 14:50 04/12/24 14:33 04/12/24 14:50 04/12/24 14:33
Physical Exam
General: Well Developed and No Apparent Distress
HEENT: Normocephalic and Anicteric
Respiratory: Non Labored Respirations and Other (diminished b/l bases)
Cardiac: S1/S2 and Irregular Rhythm (tachycardia)
Breast: Deferred by me
GI: Soft, Non Tender, Non Distended and Normal Bowel Sounds
Rectal: Deferred by Provider
Impression / Plan
-
Afib - rapid rates up to 150s during bronchoscopy today.
- did not take his morning Diltiazem 180mg today, took it now in SDS.
- given IV Diltiazem 5mg now.
- on Eliquis, but he was holding it since Friday, should resume it tonight.
- will monitor on tele.
- if rapid rates continue then would recommend he go to the ER for further treatment.
Lung cancer - s/p bronchoscopy per pulmonary.
- followed on heme/onc.
HLD - stable on Lipitor, continue.
Data Reviewed
-
EKG: Tracing Personally Visualized and interpreted (Aflutter 119 bpm )
Old Records: Reviewed
--- NOTE | 2024-04-12 16:38 | HPS.HSE ---
Addendum entered and electronically signed by Se Hobson MD 04/12/24 17:13:
see update note for addendum
Original Note:
Family Physician
-
Family Physician: NOT KNOW UNKNOWN - PT DOES
Chief Complaint
-
Elevated Heart Rate
History of Present Illness
Patient is a 63-year-old male past medical history of squamous cell lung cancer, COPD, and paroxysmal atrial fibrillation who presents with elevated heart rate. Patient underwent bronchoscopy with endoscopic ultrasound for lung cancer restaging
today. Following the procedure he developed rapid atrial fibrillation. He was given his usual oral Cardizem dose to take, and was given dose of IV Cardizem with initial improvement in his heart rate, but heart rate quickly became elevated again
and remains in the 130s�140s range. Hospitalist group was asked to evaluate the patient for admission to the hospital. He denies chest pain or palpitations.
Medical History
Past Medical History
Past Medical History: Reports Other
Additional Past Medical History:
Squamous Cell Lung Cancer
COPD
Paroxysmal Atrial Fibrillation
Hyperlipidemia
Past Surgical History: Reports Other
Additional Past Surgical History:
Wrist Surgery
Social History
Tobacco: Former Smoker (Quit in October 2023)
Alcohol: Occasional
Drug: None
Living: With Family
Family History
Family History: Not pertinent
Allergies / Home Medications
Allergies reflects when Allergies were last updated in [facility].
Home Medications with original date entered in [facility]
Allergy/Medication List:
Allergies
Allergy/AdvReac Type Severity Reaction Status Date / Time
No Known Allergies Allergy Verified 04/12/24 08:38
Home Medications
acetaminophen 500 mg tablet (Tylenol Extra Strength) 1,000 mg PO Q6HPRN PRN mild pain 10/22/23
atorvastatin 10 mg tablet 10 mg PO DAILY 10/22/23
fluticasone fur. 200 mcg-umeclid 62.5 mcg-vilant 25 mcg inhalat.powder (Trelegy Ellipta) 1 inh inhalation R DAILY 10/22/23
apixaban 5 mg tablet (Eliquis) 5 mg PO BID #60 tabs 10/25/23
cholecalciferol (vitamin D3) 50 mcg (2,000 unit) tablet (Vitamin D3) 50 mcg PO DAILY 02/25/24
dexamethasone 4 mg tablet 4 mg PO UD 02/25/24
diltiazem HCl 180 mg capsule,extended release 24 hr 180 mg PO BID 02/25/24
gabapentin 100 mg capsule 100 mg PO HSPRN PRN sleep 02/25/24
gabapentin 100 mg capsule 200 mg PO HS 02/25/24
docusate sodium 50 mg capsule 50 mg PO DAILY 04/12/24
escitalopram oxalate 10 mg tablet 10 mg PO DAILY 04/12/24
levalbuterol tartrate 45 mcg/actuation aerosol inhaler 1 puff inhalation Q6H PRN SOB 04/12/24
ondansetron 8 mg disintegrating tablet 8 mg PO Q12H PRN nausea 04/12/24
Review of Systems
-
A 12 point ROS was completed and negative except as noted: Yes
Constitutional: Denies Fever
Respiratory: Denies Cough or Trouble Breathing
Cardiac: Denies Chest Pain or Palpitations
Physical Exam
Vital Signs
Vital Signs
Temp Pulse Resp BP Pulse Ox
98.2 F 118 22 115/80 93
04/12/24 12:50 04/12/24 15:00 04/12/24 15:00 04/12/24 14:55 04/12/24 15:00
Physical Exam
General: Comfortable and Conversant
HEENT: Anicteric and Moist mucous membranes
Respiratory: Clear and Non Labored Respirations
Cardiac: S1/S2, Irregular Rhythm and Tachycardia
GI: Soft and Non Tender
Rectal: Deferred by Provider
Musculoskeletal: No Clubbing, No Cyanosis and No Edema
Skin: Warm and Dry
Neuro: Awake, Alert, Oriented and Nonfocal/grossly intact
Psych: Calm
Laboratory Results
-
Laboratory Tests
03/25/24
08:50
WBC 11.0 H
Hgb 11.5 L
Hct 37.6 L
Plt Count 405 H
BUN 8 L
Creatinine 0.6 L
Data Reviewed
-
Diagnostic Radiology: Report Reviewed by me
Lab Data: Labs Reviewed by me
Impression/Plan
-
Atrial Fibrillation with Rapid Ventricular Response
-Admit to IVU
-Start Cardizem drip
-Resume Eliquis tomorrow morning if no hemoptysis overnight
Left Pleural Effusion, possibly malignant
-Consult IR for diagnostic and thoracentesis
-Check fluid studies and cytology
Locally Advanced Non-Small Cell Lung Cancer, previously locally advanced
-Patient has not been receiving chemotherapy since he was admitted in February 2024
COPD, no acute exacerbation
-Continue Trelegy
Hyperlipidemia
-Continue atorvastatin
DVT proph: SCDs until able to resume Eliquis
Code Status: Full Code
--- NOTE | 2024-04-12 17:09 | W.PN.UPDATE ---
Update Note
Progress Note Update
I saw and examined the patient.
The PRADEEP Aquino's note was reviewed and I agree with the note.
Comment: 63 y/o M hx of COPD, known SCC of the lung and hx of parox Afib admitted to [facility] today for bronch (endoscopic US) for lung cancer re-staging. Procedure completed without immediate complications, and biopsies were sent. In recovery, patient
developed Rapid Afib with Rates in the 130-140s despite a dose of PO and IV Cardizem. Patient asymptomatic. Cardiology evaluated and recommended Cardizem drip and NPO p MN for possible ADAM/DCCV tomorrow if no hemoptysis.
Physical Exam
General: Comfortable and Conversant
HEENT: Anicteric and Moist mucous membranes
Respiratory: Clear and Non Labored Respirations
Cardiac: S1/S2, Irregular Rhythm and Tachycardia
GI: Soft and Non Tender
Rectal: Deferred by Provider
Musculoskeletal: No Clubbing, No Cyanosis and No Edema
Skin: Warm and Dry
Neuro: Awake, Alert, Oriented and Nonfocal/grossly intact
Psych: Calm
Assessment:
Parox Atrial Fibrillation with Rapid Ventricular Response
- Admit to IVU
- Start Cardizem drip with titrations
- Resume Eliquis tomorrow morning if no hemoptysis overnight
- CBC cards consulted; may consider ADAM/CV in AM
Left Pleural Effusion, possibly malignant
- Consult IR for diagnostic/therapeutic thoracentesis
- Check fluid studies and cytology to help reclassify cancer staging
Locally Advanced Non-Small Cell Lung Cancer, previously locally advanced
- Patient has not been receiving chemotherapy since he was admitted in February 2024
COPD, no acute exacerbation
- continue Trelegy
Hyperlipidemia
- continue atorvastatin
DVT proph: SCDs until able to resume Eliquis
Code Status: Full Code
--- NOTE | 2024-04-12 18:00 | PTCARENOTE ---
Room air sat 97%. Denies any chest pain, sob or palpitations.
--- NOTE | 2024-04-12 18:30 | PTCARENOTE ---
Pt received from [facility] in Afl[place], rate in the 80's to 90's
[2024-04-12 18:47] LABS: % Basophils 0.2 % (0-2); % Immature Granulocytes 0.4 % (0-0.5); % Lymphocytes 4.7 % (20.5-51.1); % Monocytes 1.1 % (1.7-9.3); % Neutrophils 93.6 % (42.2-75.2); Absolute Lymphocytes 0.5 10^3/uL (1.2-3.4); Absolute Monocytes 0.1 10^3/uL (0.1-0.6); Absolute Neutrophils 10.6 10^3/uL (1.4-6.5); Hematocrit 33.8 % (39.0-52.0); Hemoglobin 10.8 g/dL (13.0-18.0); Mean Corpuscular Hgb 30.6 pg (27.0-31.0); Mean Corpuscular Volume 95.8 fL (80.0-94.0); Nucleated Red Blood Cells % 0 % (-); Platelet Count 304 10^3/uL (130-400); Red Blood Cell Count 3.53 10^6/uL (4.70-6.10); Red Cell Dist. Width 16.9 % (11.5-14.5); White Blood Cell Count 11.3 10^3/uL (4.8-10.8)
[2024-04-12] MEDS: CARDIZEM 125 IV (19:03)
[2024-04-12 19:27] LABS: TSH Reflex To Free T4 0.36 uIU/ml (0.47-4.68)
[2024-04-12] MEDS: SYMBICORT 160/4.5 MCG INHALER INH (19:41)
[2024-04-12 19:56] LABS: Free T4 0.99 ng/dl (0.78-2.19)
--- NOTE | 2024-04-12 21:34 | PTCARENOTE ---
Rec'd pt at change of shift. Pt in afib on TELE monitor with HR in the 90's, VSS, and pt AAO*3. Pt denies having any pain or discomfort. Pt updated and verbalizes understanding of care plan. Pt resting with call woods in reach.
--- NOTE | 2024-04-12 21:36 | PTCARENOTE ---
Pt with cardizem infusing as ordered at 5ml/hr or 5mg/hr. Pt remains in afib and hr in the 90's.
[2024-04-12 21:53] LABS: Blood Urea Nitrogen 10 mg/dl (9-20); Carbon Dioxide 24 mmol/L (22-30); Chloride 99 mmol/L (98-107); Estimated Creatinine Clearance 114 ml/min; Glucose 220 mg/dl (70-99); Magnesium 1.6 mg/dl (1.6-2.3); Potassium 4.5 mmol/L (3.5-5.1); Sodium 135 mmol/L (135-145); eGFR > 60.00
[2024-04-12] MEDS: NEURONTIN 200 MG PO (22:10)
[2024-04-13 03:10] VITALS: BP 117/75
[2024-04-13 03:18] VITALS: BMI 21.1
[2024-04-13 03:35] LABS: Hematocrit 33.1 % (39.0-52.0); Hemoglobin 10.8 g/dL (13.0-18.0); Mean Corp Hgb Conc. 32.6 g/dL (33.0-37.0); Mean Corpuscular Hgb 30.5 pg (27.0-31.0); Mean Corpuscular Volume 93.5 fL (80.0-94.0); Mean Platelet Volume 9.1 fL (7.4-10.4); Platelet Count 301 10^3/uL (130-400); Red Blood Cell Count 3.54 10^6/uL (4.70-6.10); Red Cell Dist. Width 16.6 % (11.5-14.5); White Blood Cell Count 12.1 10^3/uL (4.8-10.8)
[2024-04-13 03:38] LABS: INR 0.97; PT 13.2 Sec (11.4-14.6)
[2024-04-13 03:58] LABS: Blood Urea Nitrogen 9 mg/dl (9-20); Calcium 9.2 mg/dl (8.4-10.2); Carbon Dioxide 29 mmol/L (22-30); Chloride 100 mmol/L (98-107); Estimated Creatinine Clearance 112 ml/min; Glucose 141 mg/dl (70-99); LDH 181 U/L (120-246); Potassium 4.2 mmol/L (3.5-5.1); Sodium 136 mmol/L (135-145); Total Protein 5.6 g/dl (6.3-8.2); eGFR > 60.00
[2024-04-13] MEDS: SPIRIVA RESPIMAT 2.5 MCG 2 PUFF INH (07:42)
[2024-04-13] MEDS: SYMBICORT 160/4.5 MCG INHALER 2 PUFF INH (07:42)
[2024-04-13 07:50] VITALS: BP 123/66
--- NOTE | 2024-04-13 08:07 | VNURNOTE ---
Chart reviewed. Patient is current with [facility] nursing, PT, OT. Will continue to follow hospital course and DC plans.
--- NOTE | 2024-04-13 08:40 | W.PN.CD ---
Today's Communication / Plan
-
back in SR
cont dilt and Eliquis
We will sign off please call with questions/concerns.
Impression / Plan
-
Afib - now w/ spont CV
- cont dilt
- restart Eliquis 5 mg, no hemoptysis
- f/u outpatient
Lung cancer - s/p bronchoscopy per pulmonary.
- followed on heme/onc.
- IR has been consulted
HLD - stable on Lipitor, continue.
Subjective: feeling well no new complaints
Physical Exam
Vital Signs/Labs
Vital Signs
Temp Pulse Resp BP Pulse Ox
97.6 F 72 16 117/75 97
04/13/24 07:49 04/13/24 07:47 04/13/24 07:49 04/13/24 03:10 04/13/24 07:49
04/12/24 04/13/24 04/14/24
06:59 06:59 06:59
Actual Weight 142 lb 10.225 oz
04/13/24 03:17
04/13/24 03:17
PT 13.2 Sec (11.4-14.6) 04/13/24 03:17
INR 0.97 04/13/24 03:17
Magnesium 1.6 mg/dl (1.6-2.3) 04/12/24 18:29
Free T4 0.99 ng/dl (0.78-2.19) 04/12/24 18:29
Physical Exam
Constitutional: No acute distress and Comfortable
EENT: Anicteric
Cardiovascular: Rhythm & rate is regular
Respiratory: Respiratory effort normal
GI: Soft
Neuro/Psych: AO x 3
Data Reviewed
-
Date of Service: April 13, 2024
Medical Decision Making: Reviewed Test Results
EKG: Tracing Personally Visualized and interpreted (sr)
Echo: Report Reviewed by me
Labs: Labs Reviewed by me
[2024-04-13] MEDS: LEXAPRO 10 MG PO (09:00)
[2024-04-13] MEDS: VITAMIN D3 (cholecalciferol) 50 MCG PO (09:00)
[2024-04-13] MEDS: LIPITOR 10 MG PO (09:01)
[2024-04-13] MEDS: FLUSH (NSS) 1 FLUSH IV (09:01)
[2024-04-13] MEDS: CARDIZEM SR 180 MG PO (09:05)
[2024-04-13 09:20] VITALS: BP 117/65; BP_SYST 66
[2024-04-13] MEDS: ELIQUIS 5 MG PO (10:00)
--- NOTE | 2024-04-13 10:55 | CON.PUL ---
Consultation
Consultation Request
Date/Time Consultation Requested: 04/13/2024
Date/Time Consultation Performed: 04/13/2024
Requesting Provider: Dr. Hobson
Performing Provider: Dr. Raz Myers
Reason for Consultation: Lung mass/status post bronchoscopy-shortness of breath
Medical History
-
History of Present Illness:
63-year-old man with past medical history significant for squamous cell lung carcinoma, COPD, paroxysmal atrial fibrillation, underwent bronchoscopy on 04/12/2024 finding obstructive large mass in the left mainstem bronchus. After bronchoscopy
patient developed rapid atrial fibrillation and shortness of breath. Admitted to the hospital for further care. Patient was treated with IV Cardizem cardiology evaluated the patient. Heart rate quickly improved.
I am seeing the patient today 04/13/2024, he is comfortable. Heart rate is 85. Denies shortness of breath.
He was able to ambulate to the restroom.
Denies hemoptysis.
Denies chest pain.
Left-sided ultrasound was performed and demonstrated minimal pleural effusion.
Past Medical History
Past Medical History: Other (See assessment and plan)
Social History
Tobacco: Former Smoker
Alcohol: None
Drug: None
Personal: Single
Living: With Family
Family History
Family History: Reviewed & Not Pertinent
Allergies / Home Medications
Allergies
Allergy/AdvReac Type Severity Reaction Status Date / Time
No Known Allergies Allergy Verified 04/12/24 08:38
Home Medications
�Medication �Instructions �Recorded �Confirmed �Last Taken �Type
acetaminophen 500 mg tablet 1,000 mg PO Q6HPRN PRN mild pain 10/22/23 04/12/24 04/11/24 History
(Tylenol Extra Strength)
atorvastatin 10 mg tablet 10 mg PO DAILY 10/22/23 04/12/24 04/11/24 08:00 History
fluticasone fur. 200 mcg-umeclid 1 inh inhalation R DAILY 10/22/23 04/12/24 04/12/24 08:00 History
62.5 mcg-vilant 25 mcg
inhalat.powder (Trelegy Ellipta)
apixaban 5 mg tablet (Eliquis) 5 mg PO BID #60 tabs 10/25/23 04/12/24 04/09/24 08:00 Rx
cholecalciferol (vitamin D3) 50 50 mcg PO DAILY 02/25/24 04/12/24 04/11/24 08:00 History
mcg (2,000 unit) tablet (Vitamin
D3)
dexamethasone 4 mg tablet 4 mg PO UD 02/25/24 04/12/24 1 Month Ago History
~03/12/24
diltiazem HCl 180 mg 180 mg PO BID 02/25/24 04/12/24 04/12/24 13:35 History
capsule,extended release 24 hr
gabapentin 100 mg capsule 100 mg PO HSPRN PRN sleep 02/25/24 04/12/24 Unknown History
gabapentin 100 mg capsule 200 mg PO HS 02/25/24 04/12/24 04/11/24 20:00 History
docusate sodium 50 mg capsule 50 mg PO DAILY 04/12/24 04/12/24 04/11/24 08:00 History
escitalopram oxalate 10 mg tablet 10 mg PO DAILY 04/12/24 04/12/24 04/09/24 08:00 History
levalbuterol tartrate 45 1 puff inhalation Q6H PRN SOB 04/12/24 04/12/24 04/11/24 08:00 History
mcg/actuation aerosol inhaler
ondansetron 8 mg disintegrating 8 mg PO Q12H PRN nausea 04/12/24 04/12/24 04/09/24 History
tablet
Review of Systems
-
History Source: Patient
All other systems: Negative unless noted
Vitals / Labs / Diagnostic Testing
Vital Signs
Temp Pulse Resp BP Pulse Ox
97.9 F 79 17 117/65 97
04/13/24 09:20 04/13/24 10:00 04/13/24 09:20 04/13/24 09:20 04/13/24 09:20
Lab Data
04/13/24 03:17
04/13/24 03:17
Laboratory Results
04/13/24
03:17
PT 13.2
INR 0.97
Microbiology
04/12/24 11:26 Bronch Washing Gram Stain - Preliminary
04/12/24 11:26 Bronchoalveolar Lavage Fungal Culture - Preliminary
Culture in progress.
Positive cultures are reported as soon as detected.
Final report to follow in four to five weeks.
Diagnostic Testing:
Physical Exam
-
HEENT: Normocephalic
Cardiovascular: S1/S2
Respiratory: Other (Absent breath sounds on the left)
GI: Soft and Non Distended
Neurology: Awake, Alert and AO x 3
Assessment
-
63-year-old man with history of squamous cell lung carcinoma, follows up with Dr. Mansfield, underwent restaging bronchoscopy 04/12/2024. Subsequently admitted to the hospital with shortness of breath and rapid atrial fibrillation.
Shortness of breath post bronchoscopy-rapid atrial fibrillation
Squamous cell lung cancer with complete whiteout of the left lung-Central obstructing left mainstem bronchus lesion.
Status post bronchoscopy 04/12/2024
Conditions present prior admission:
COPD
Squamous cell carcinoma-at diagnosis locally advanced-diagnosed 10/2023
Paroxysmal atrial fibrillation
Hyperlipidemia
Former smoker who quit in October 2023
Assessment and plan:
Heart rate back to baseline.
Patient hemodynamically stable overnight
Back on anticoagulation and oral Cardizem.
Denies shortness of breath ambulating to the restroom.
Not bronchospastic on exam.
-
Chest x-ray with complete whiteout of the left lung likely due to atelectasis and central instructing the large left mainstem tumor status post bronchoscopy.
Not on oxygen supplementation
From my perspective okay to discharge home.
There is no evidence for acute exacerbation of COPD.
Continue Trelegy.
-
Advised to make an appointment with Dr. Mansfield from oncology as soon as possible to reassume therapy.
Advised the patient to call our office with any change in respiratory status.
-
Follow-up in our office as previously scheduled.
-
Okay to discharge home.
Discussed with primary team.
Sign off
--- NOTE | 2024-04-13 11:03 | W.PN.HOSP.TC ---
Today's Communication/Plan
-
dc home
Assessment / Plan
Assessment / Plan
Assessment:
Parox Atrial Fibrillation with Rapid Ventricular Response
- now back in NSR
- dc on Cardizem/Eliquis per [facility] cardiology
Left Pleural Effusion, possibly malignant
- s/p Eval by IR, too small to tap
Locally Advanced Non-Small Cell Lung Cancer, previously locally advanced
- Patient has not been receiving chemotherapy since he was admitted in February 2024
- f/u bronch biopsies for restaging
COPD, no acute exacerbation
- continue Trelegy
Hyperlipidemia
- continue atorvastatin
DVT proph: Eliquis
Code Status: Full Code
More than 30 minutes spent in discharge including
Final examination of the patient
Summarizing hospital stay
Instructions for continuing care to all relevant caregivers
Preparation of discharge records, prescriptions, and referral forms
Total time spent (in minutes): 41
Anticipated Discharge: Today
Subjective/Interval History
-
Date of Service: April 13, 2024
feels well no complaints
back in NSR
Objective Data
-
Labs:
Laboratory Results
04/13/24
03:17
WBC 12.1 H
Hgb 10.8 L
Hct 33.1 L
Plt Count 301
PT 13.2
INR 0.97
Sodium 136
Potassium 4.2
Chloride 100
Carbon Dioxide 29
BUN 9
Creatinine 0.4 L
Glucose 141 H
Calcium 9.2
Vital Signs:
Vital Signs
Temp Pulse Resp BP Pulse Ox
97.9 F 79 17 117/65 97
04/13/24 09:20 04/13/24 10:00 04/13/24 09:20 04/13/24 09:20 04/13/24 09:20
I&O
04/12/24 04/13/24 04/14/24
06:59 06:59 06:59
Intake Total 580 / 580
Balance 580 / 580
Physical Exam
-
General: No Apparent Distress
HEENT: Normocephalic and Atraumatic
Respiratory: Decreased Breath Sounds; Negative Wheezes
Cardiac: Regular Rhythm and S1/S2
GI: Soft
Genito-urinary: No Costovertebral Tender
Neuro: AO x 3
Psych: Calm
Data Reviewed
-
Total Time Spent with Patient (in minutes): 42
Labs: Labs Reviewed by me
--- NOTE | 2024-04-13 11:07 | W.DS.TRANS ---
DC Summary - [employer]
-
Discharge Instructions:
Sleep Apnea Risk Low
Discharge Diagnosis/Procedures Parox rapid Afib. Lung cancer s/p Bronch 04/12
Diet Low Cholesterol
Activity As tolerated
Bathing Restrictions None
Instructions:
Stand-Alone Forms:
Changes to Home Medications: No
Discharge Medications:
DC Medications w/original date entered in [employer]
acetaminophen 500 mg tablet (Tylenol Extra Strength) 1,000 mg PO Q6HPRN PRN mild pain 10/22/23
atorvastatin 10 mg tablet 10 mg PO DAILY 10/22/23
fluticasone fur. 200 mcg-umeclid 62.5 mcg-vilant 25 mcg inhalat.powder (Trelegy Ellipta) 1 inh inhalation R DAILY 10/22/23
apixaban 5 mg tablet (Eliquis) 5 mg PO BID #60 tabs 10/25/23
cholecalciferol (vitamin D3) 50 mcg (2,000 unit) tablet (Vitamin D3) 50 mcg PO DAILY 02/25/24
dexamethasone 4 mg tablet 4 mg PO UD 02/25/24
diltiazem HCl 180 mg capsule,extended release 24 hr 180 mg PO BID 02/25/24
gabapentin 100 mg capsule 100 mg PO HSPRN PRN sleep 02/25/24
gabapentin 100 mg capsule 200 mg PO HS 02/25/24
docusate sodium 50 mg capsule 50 mg PO DAILY 04/12/24
escitalopram oxalate 10 mg tablet 10 mg PO DAILY 04/12/24
levalbuterol tartrate 45 mcg/actuation aerosol inhaler 1 puff inhalation Q6H PRN SOB 04/12/24
ondansetron 8 mg disintegrating tablet 8 mg PO Q12H PRN nausea 04/12/24
Home Medication Changes
Pending Results: No
Total time spent discharging patient (in min): 41
--- NOTE | 2024-04-13 11:12 | CM ---
Addendum entered by Laurie Patrick 04/13/24 12:52:
Mr. Lawrence did not qualify for Home O2.
Original Note:
Reviewed chart. Met with and Mrs. Lawrence to review discharge plans. He states prior to admission he resides with his spouse in a two story home with one step to enter. He states he has a full flight of steps to get to bedroom/full bathroom.
He states he has a powder room on the firt floor. He states he has been staying on the first floor and sleeping on the sofa. He states prior to admission he ambulates with a walker. He stats he a walker, wheelchair, raised toilet seat and Grab bars
in the bathroom. He states he has a prescription plan and uses [facility]. Waiting for home 02 test to see if he will need home 02. Medical work-up in progress . The discharge plan is to return home with his spouse when medically stable.
--- NOTE | 2024-04-13 11:14 | PTCARENOTE ---
Received patient this morning resting in bed, remaining in SR. Sent to IR for left thoracentesis which was unable to be done due to insufficient fluid found on ultrasound. Patient ordered breakfast, given morning meds. For discharge home today after
assessed for home O2.
[2024-04-13 12:07] VITALS: O2SAT 94; O2SAT 97
--- NOTE | 2024-04-13 12:53 | PTCARENOTE ---
Patient seen by pulmonary and hospitalist and is ok for discharge home. Ambulated by respiratory and did not require O2. Reviewed discharge instructions with the patient and his and they state their understanding. patient discharged home with
his .
== END 2024-04-13 12:27 | disposition home health service (06) | DRG 309 ==
LOC: IVU 16:36
PROVIDERS: Physician Assistant Medical; ADMITTING PHYSICIAN Internal Medicine; CONSULT PHYSICIAN Internal Medicine Cardiovascular Disease; OTHER PHYSICIAN Internal Medicine Critical Care Medicine
DX: I48.0 Paroxysmal atrial fibrillation (principal); C34.02 Malignant neoplasm of left main bronchus; J91.0 Malignant pleural effusion; J98.11 Atelectasis; E78.5 Hyperlipidemia, unspecified; J44.9 Chronic obstructive pulmonary disease, unspecified; Z87.891 Personal history of nicotine dependence; Z79.01 Long term (current) use of anticoagulants; I48.92 Unspecified atrial flutter; Z79.899 Other long term (current) drug therapy
CPT/HCPCS: 88173; 88305; 71045; 80048; 81459; 83615; 83735; 84155; 84439; 84443; 85025; 85027; 85610; 87070; 87102; 87116; 87205; 88112; 88341; 88342; 93005; 94640; 94761

== ENCOUNTER → 2024-04-23 09:13 | Outpatient (REF) | payer BC, SELFPAY | LOC: RAD 09:13 | PROVIDERS: ATTENDING PHYSICIAN Radiology Radiation Oncology; FAMILY PHYSICIAN Nurse Practitioner Family | DX: C34.92 Malignant neoplasm of unspecified part of left bronchus or lung (principal) | CPT/HCPCS: 71260; Q9967 ==

== ENCOUNTER → 2024-07-14 07:45 | Outpatient (REF) | payer BC, SELFPAY | LOC: RAD 07:45 | PROVIDERS: ATTENDING PHYSICIAN Physician Assistant; FAMILY PHYSICIAN Family Medicine | DX: C34.90 Malignant neoplasm of unspecified part of unspecified bronchus or lung (principal) | CPT/HCPCS: 71260; Q9967 ==